=== PATIENT | female | born 1935 | race African-American/Black ===

== ENCOUNTER → 2016-08-18 | Outpatient (CLI) | payer MEDICARE, MEDICAID ==
[~2016-08-18] MED LIST: ALBU2.5V4 INH; ALBU8.5H2 IH; AMLO10TA82 PO; ASP81CT PO; ASPI-266 PO; ASPI-875 PO; Azithromycin PO; BUDE0.5A2 IH; BUDE0.5A5 INH; BUDE6HFA IH; CRANBERRY TABLET PO; CRB200T PO; DCS100C PO; DOXA2TAB PO; DXZS2T PO; DXZS4T PO; FLT05NA16 NSEACH; FLUT1DIS3 IH; FURO40TA4 PO; HYDR1CAP2 PO; INSU100V3 ID; IPRA3AMP11 INH; KCL20TCR PO; LEVO75TA6 PO; LEVO88TA26 PO; LSNP20T PO; LVT.088T PO; Lisinopril PO; METO200T2 PO; METO200T6 PO; MTP100TCR PO; OMEG1CAP51 PO; OMEP-10 PO; PRD20T PO; PRED10TA PO; PRED15SO PO; PRED5TAB PO; Prednisone PO; SMV20T PO; SOLI10TA4 PO; TRAV0.004S OU; TRAZ-144 PO; [UNRECOGNIZED DRUG - CODE] TP
--- NOTE | 2016-08-20 20:36 | Diagnostic Imaging Report ---
Bilateral screening mammogram The current study was also evaluated with a Computer Aided Detection (CAD) system. INDICATION: Screening. No current complaints stated on the questionnaire. COMPARISON: 01/18/2014. FINDINGS: The breasts are composed of scattered fibroglandular densities. Numerous calcifications slightly increased from prior exams are seen in scattered distribution likely dystrophic type with no suspicious calcifications. The technologist reports difficulty in positioning of this patient explaining the lack of pectoralis muscle on the MLO views. Allowing for technique and positional differences, no suspicious change is seen. IMPRESSION: No significant change. ACR BI-RADS Category 2: Benign findings. Result letter will be mailed to the patient. Note: At least 10% of breast cancer is not imaged by mammography. Dictated by: Dictated on workstation # [id number]
== END ==
LOC: RAD 13:16
PROVIDERS: ATTEND Nurse Practitioner Community Health
DX: Z12.31 Encounter for screening mammogram for malignant neoplasm of breast (principal)
CPT/HCPCS: 77067

== ENCOUNTER 2017-07-09 19:21 | Inpatient (IN) | payer MEDICARE, MEDICAID ==
[~2017-07-09] VITALS: Ht 152.4 cm; Wt 74.4 kg
[2017-07-09] MEDS ORDERED: cefTRIAXone INJECTION 1,000 MG in NS (IVPB) 100 ML IV STA (19:30)
[2017-07-09] MEDS ORDERED: LACTATED RINGERS 1,000 ML IV STA (19:30)
[2017-07-09] MEDS ORDERED: LACTATED RINGERS 1,000 ML IV ONE (19:30)
[2017-07-09] MEDS ORDERED: RT-ALBUTEROL/IPRATROPIUM 3 ML (DUONEB) VIAL INH ONE (19:30)
[2017-07-09] MEDS ORDERED: RT-ALBUTEROL/IPRATROPIUM 3 ML (DUONEB) VIAL ONE (19:33)
--- NOTE | 2017-07-09 19:37 | ED General ---
General Stated Complaint: AMS Source of Information: Patient, EMS, Assisted Records Exam Limitations: Physical Impairments History of Present Illness Date Seen by Provider: Jul 09, 2017 Time Seen by Provider: 19:27 Initial Comments Patient presents to the ER by EMS with a chief complaint that she was nonresponsive today and wheezing. EMS reports that they were told by nursing that they tried to give her her prednisone tablet but she was unresponsive and she wouldn't swallow the tablets so they called EMS. Patient was started on azithromycin and prednisone yesterday and she does have a history of COPD/ asthma. She is wheelchair bound and when EMS got there she was in bed. They suctioned a small amount of oral secretions and got a normal looking 12-lead EKG. Allergies and Home Medications Allergies Coded Allergies: Phenothiazines (Verified Allergy, Unknown, 04/14/14) Trifluoperazine HCl (Verified Allergy, Unknown, 04/14/14) tuberculin, purified protein deriva (Verified Allergy, Unknown, 04/14/14) Home Medications Albuterol 8.5 Gm Hfa.aer.ad, 2 PUFF IH Q6H PRN for WHEEZING, (Reported) Albuterol Sulfate 0.83 Mg/Ml Solution, 1 VIAL INH QID PRN for SHORTNESS OF BREATH, (Reported) Albuterol/Ipratropium 3 Ml Nebu, 3 ML INH QID, (Reported) Amlodipine Besylate 10 Mg Tablet, 10 MG PO DAILY, (Reported) Ammonium Lactate 400 Gm Lotion, TP BID, (Reported) APPLY TO SKIN Aspirin 81 Mg Chew, 81 MG PO DAILY, (Reported) Budesonide/Formoterol Fumarate 1 Inhaler Aero, 2 PUFF IH BID, (Reported) Carbamazepine 200 Mg Tablet, 200 MG PO BID, (Reported) Docusate Sodium 100 Mg Capsule, 100 MG PO BID, (Reported) Doxazosin Mesylate 2 Mg Tab, 2 MG PO Q6HR Prescribed by: MILTON FARRELL on 08/15/14 1412 Fluticasone Propionate 16 Gm Coulter, 1 SPRAYS NSEACH BID PRN for ALLERGIES, ( Reported) Furosemide 40 Mg Tablet, 40 MG PO DAILY, (Reported) Insulin Regular, Human 1,000 Units/10 Ml Soln, 0 ID Q6H PRN for follow sliding scale protocol Prescribed by: YFN HEALY on 07/07/15 1519 Levothyroxine Sodium 88 Mcg Tablet, 88 MCG PO HS, (Reported) Bourg-3 Fatty Acids/Fish Oil 1 Each Capsule, 1 EACH PO BID, (Reported) Omeprazole 20 Mg Capsule.dr, 20 MG PO DAILY, (Reported) Simvastatin 20 Mg Tab, 20 MG PO HS, (Reported) Travoprost 2.5 Ml Drops, 1 DROP OU HS, (Reported) [Lisinopril] 20 MG TAB, 20 MG PO DAILY Prescribed by: MILTON FARRELL on 08/15/14 1412 Patient Home Medication List Home Medication List Reviewed: Yes Constitutional: see HPI (patient will open her eyes and look around to verbal will not give any meaningful review of systems) Past Myzgwkh-Nbshao-Otxpnv Hx Patient Social History Alcohol Use: Denies Use Recreational Drug Use: No Smoking Status: Never a Smoker Immunizations Up To Date Tetanus Booster (TDap): Unknown PED Vaccines UTD: No Date of Pneumonia Vaccine: Feb 08, 2012 Date of Influenza Vaccine: Feb 07, 2014 Surgeries Surgeries: Appendectomy, Eye Surgery, Hysterectomy, Orthopedic, Thyroidectomy Respiratory Respiratory Disorders: Chronic Bronchitis, COPD Cardiovascular Cardiac Disorders: Cardiomyopathy, High Cholesterol, Hypertension Neurological Neurological Disorders: Developmental Disorder, Seizure Disorder Reproductive System Hx Reproductive Disorders: 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 Physical Exam-Suspected Sepsis Physical Exam Vital Signs Vital Signs - First Documented 07/09/17 07/09/17 07/09/17 07/10/17 19:40 20:05 23:15 00:00 Temp 96.7 Pulse 80 Resp 24 B/P (MAP) 107/80 (89) Pulse Ox 100 O2 Delivery Simple Mask O2 Flow Rate 6.00 Capillary Refill : General Appearance: Moderate Distress, Obese Eyes: Bilateral Eye Normal Inspection, Bilateral Eye PERRL, Bilateral Eye EOMI HEENT: PERRL/EOMI, TMs Normal, Normal ENT Inspection, Pharynx Normal ( oropharynx dry and free of foreign bodies) Neck: Full Range of Motion, Normal Inspection, Non Tender, Supple Respiratory: Chest Non Tender, Decreased Breath Sounds, Respiratory Distress ( mild to moderate), Wheezing Cardiovascular: Regular Rate, Rhythm, No Edema, No Murmur, Normal Peripheral Pulses Gastrointestinal: Normal Bowel Sounds, Non Tender, Soft Extremity: Normal Capillary Refill, Non Tender, No Calf Tenderness, No Pedal Edema Neurologic/Psychiatric: Alert, Other (Dexter Coma Scale 10.) Skin: normal color, warm/dry Focused Exam Evaluation Lactate Level Laboratory Tests 07/09/17 20:08: Lactic Acid Level 2.68*H 07/09/17 22:10: Lactic Acid Level 4.32*H 07/10/17 03:32: Lactic Acid Level 4.03*H Time of Focused Exam: 22:00 Respiratory: Chest Non Tender, No Accessory Muscle Use, Decreased Breath Sounds , Respiratory Distress (mod), Wheezing Cardiovascular: Regular Rate, Rhythm, No Murmur, Normal Peripheral Pulses Capillary Refill: Less Than 3 Seconds Peripheral Pulses: 2+ Dorsalis Pedis (R), 2+ Left Dors-Pedis (L), 2+ Radial Pulses (R), 2+ Radial Pulses (L) Skin: normal color, warm/dry Lactic Acid Level Laboratory Tests Test 07/10/17 03:32 Lactic Acid Level 4.03 MMOL/L (0.50-2.00) *H Lumen: triple Central Line Procedure: betadine prep (chlorhexidine prep), sterile drapes applied, sterile dressing applied Position: internal jugular (R) Anesthesia: Lidocaine Volume Anesthetic (ccs): 2 Complications: Post Position: sutured, good blood return, position confirmed w/ CXR Progress Patient was positioned in the usual fashion. Cleaned with chlorhexidine prep. Draped in the usual sterile fashion. Sterile gown, mask and hair net, as well as sterile gloves were donned. 2 cc of lidocaine were injected in the left IJ and using ultrasound guidance catheter needle was placed. The needle was guided by ultrasound and watched enter the internal jugular but when the needle was withdrawn from the catheter pulsatile bright red blood flow was seen so the catheter was withdrawn and stops pressure was placed for 10 minutes. Patient was on draped and the right IJ was prepped with chlorhexidine and sterile drapery was placed in the usual fashion. Down gloves mask and headgear placed in the usual fashion. 2 cc of 1% lidocaine without epinephrine were placed over the right IJ and using ultrasound guidance a needle catheter was placed in the right IJ. Slow dark red blood return was obtained. The needle was withdrawn and the guidewire was easily passed. The catheter was removed and using an 11 blade scalpel in neck and the skin was made. A dilator was placed over the guidewire and passed easily. The guidewire was held in place while the dilator was removed and then the triple lumen catheter was placed over the guidewire easily entered the right IJ. The triple lumen was placed about 16 cm. Using the provided hardware the triple lumen was stitched in place to the skin and then a Biopatch was placed in a sterile dressing was placed. Chest x-ray was obtained which showed the tip of the triple lumen catheter to be in the right atria. Cleaning the site with chlorhexidine and draping with sterile drapes the sterile dressing was removed and the stitches were removed using sterile fashion and sterile gloves. Mask and headgear were still present. The triple lumen was withdrawn 2-1/2 cm. The hardware was replaced and stitched in place using 4-0 silk. Biopatch was replaced and a sterile dressing was placed over the triple lumen insertion site. Patient tolerated this procedure well. If repeat chest x-ray was obtained showing the triple lumen in good position in the superior vena cava above the right atria. At this time the procedure was done the patient does not have any hematoma, bleeding or palpable tumor over the left IJ/carotid. Progress/Results/Core Measures Suspected Sepsis SIRS Temperature: Pulse: Respiratory Rate: Laboratory Tests 07/09/17 20:08: White Blood Count 7.2 07/10/17 03:32: White Blood Count 8.9 Blood Pressure / Mean: Laboratory Tests 07/09/17 20:08: Lactic Acid Level 2.68*H 07/09/17 22:10: Lactic Acid Level 4.32*H 07/10/17 03:32: Lactic Acid Level 4.03*H Laboratory Tests 07/09/17 20:08: Creatinine 1.16, INR Comment 1.0, Platelet Count 300, Total Bilirubin 0.2 07/10/17 03:32: Creatinine 0.98, Platelet Count 268, Total Bilirubin 0.2 Results/Orders Lab Results Laboratory Tests Test 07/09/17 19:45 07/09/17 20:08 07/09/17 21:17 07/09/17 22:10 Range/Units Blood Gas Puncture Site RIGHT RADIAL R RAD Blood Gas Patient Temperature 95.2 94.1 Arterial Blood pH 7.17 *L 7.36 L 7.37-7.43 Arterial Blood Partial Pressure CO2 104 *H 62 H 35-45 MMHG Arterial Blood Partial Pressure O2 277 H 58 L 79-93 MMHG Arterial Blood HCO3 38 H 35 H 23-27 MMOL/L Arterial Blood Total CO2 41.2 H 37.4 H 21.0-31.0 MMOL/L Arterial Blood Oxygen Saturation 100 94 94-100 % Arterial Blood Base Excess 9.0 H 9.1 H -2.5-2.5 MMOL/L Juan Test POSITIVE YES-POS Blood Gas Ventilator Setting NO NO Blood Gas Inspired Oxygen 6 L 30% BIPAP White Blood Count 7.2 4.3-11.0 10^3/uL Red Blood Count 3.46 L 4.35-5.85 10^6/uL Hemoglobin 10.6 L 11.5-16.0 G/DL Hematocrit 34 L 35-52 % Mean Corpuscular Volume 99 80-99 FL Mean Corpuscular Hemoglobin 31 25-34 PG Mean Corpuscular Hemoglobin Concent 31 L 32-36 G/DL Red Cell Distribution Width 16.1 H 10.0-14.5 % Platelet Count 300 130-400 10^3/uL Mean Platelet Volume 9.3 7.4-10.4 FL Neutrophils (%) (Auto) 61 42-75 % Lymphocytes (%) (Auto) 27 12-44 % Monocytes (%) (Auto) 12 0-12 % Eosinophils (%) (Auto) 0 0-10 % Basophils (%) (Auto) 0 0-10 % Neutrophils # (Auto) 4.4 1.8-7.8 X 10^3 Lymphocytes # (Auto) 1.9 1.0-4.0 X 10^3 Monocytes # (Auto) 0.9 0.0-1.0 X 10^3 Eosinophils # (Auto) 0.0 0.0-0.3 10^3/uL Basophils # (Auto) 0.0 0.0-0.1 10^3/uL Prothrombin Time 13.1 12.2-14.7 SEC INR Comment 1.0 0.8-1.4 Activated Partial Thromboplast Time 22 L 24-35 SEC Sodium Level 145 135-145 MMOL/L Potassium Level 6.2 H 6.1 H 3.6-5.0 MMOL/L Chloride Level 102 98-107 MMOL/L Carbon Dioxide Level 32 21-32 MMOL/L Anion Gap 11 5-14 MMOL/L Blood Urea Nitrogen 29 H 7-18 MG/DL Creatinine 1.16 0.60-1.30 MG/DL Estimat Glomerular Filtration Rate 54 BUN/Creatinine Ratio 25 Glucose Level 122 H 70-105 MG/DL Lactic Acid Level 2.68 *H 4.32 *H 0.50-2.00 MMOL/L Calcium Level 9.0 8.5-10.1 MG/DL Phosphorus Level 5.0 H 2.3-4.7 MG/DL Magnesium Level 2.7 H 1.8-2.4 MG/DL Total Bilirubin 0.2 0.1-1.0 MG/DL Aspartate Amino Transf (AST/SGOT) 12 5-34 U/L Alanine Aminotransferase (ALT/SGPT) 17 0-55 U/L Alkaline Phosphatase 63 40-136 U/L Troponin I < 0.30 <0.30 NG/ML C-Reactive Protein High Sensitivity 0.55 H 0.00-0.50 MG/DL B-Type Natriuretic Peptide 249.7 H <100.0 PG/ML Total Protein 7.4 6.4-8.2 GM/DL Albumin 3.7 3.2-4.5 GM/DL Test 07/10/17 00:13 07/10/17 03:32 07/10/17 04:07 Range/Units Urine Color YELLOW Urine Clarity CLEAR Urine pH 5 5-9 Urine Specific [place] 1.015 L 1.016-1.022 Urine Protein 2+ H NEGATIVE Urine Glucose (UA) NEGATIVE NEGATIVE Urine Ketones NEGATIVE NEGATIVE Urine Nitrite NEGATIVE NEGATIVE Urine Bilirubin NEGATIVE NEGATIVE Urine Urobilinogen NORMAL NORMAL MG/DL Urine Leukocyte Esterase NEGATIVE NEGATIVE Urine RBC (Auto) NEGATIVE NEGATIVE Urine RBC NONE /HPF Urine WBC NONE /HPF Urine Squamous Epithelial Cells NONE /HPF Urine Crystals PRESENT H /LPF Urine Amorphous Sediment FEW ANDREA URATES H /LPF Urine Bacteria TRACE /HPF Urine Casts PRESENT /LPF Urine Hyaline Casts 2-5 H /LPF Urine Mucus MODERATE H /LPF Urine Culture Indicated NO White Blood Count 8.9 4.3-11.0 10^3/uL Red Blood Count 3.22 L 4.35-5.85 10^6/uL Hemoglobin 9.8 L 11.5-16.0 G/DL Hematocrit 32 L 35-52 % Mean Corpuscular Volume 99 80-99 FL Mean Corpuscular Hemoglobin 30 25-34 PG Mean Corpuscular Hemoglobin Concent 31 L 32-36 G/DL Red Cell Distribution Width 15.9 H 10.0-14.5 % Platelet Count 268 130-400 10^3/uL Mean Platelet Volume 9.4 7.4-10.4 FL Neutrophils (%) (Auto) 83 H 42-75 % Lymphocytes (%) (Auto) 12 12-44 % Monocytes (%) (Auto) 5 0-12 % Eosinophils (%) (Auto) 0 0-10 % Basophils (%) (Auto) 0 0-10 % Neutrophils # (Auto) 7.4 1.8-7.8 X 10^3 Lymphocytes # (Auto) 1.1 1.0-4.0 X 10^3 Monocytes # (Auto) 0.4 0.0-1.0 X 10^3 Eosinophils # (Auto) 0.0 0.0-0.3 10^3/uL Basophils # (Auto) 0.0 0.0-0.1 10^3/uL Sodium Level 142 135-145 MMOL/L Potassium Level 6.3 H 3.6-5.0 MMOL/L Chloride Level 103 98-107 MMOL/L Carbon Dioxide Level 32 21-32 MMOL/L Anion Gap 7 5-14 MMOL/L Blood Urea Nitrogen 27 H 7-18 MG/DL Creatinine 0.98 0.60-1.30 MG/DL Estimat Glomerular Filtration Rate > 60 BUN/Creatinine Ratio 28 Glucose Level 147 H 70-105 MG/DL Lactic Acid Level 4.03 *H 0.50-2.00 MMOL/L Calcium Level 8.5 8.5-10.1 MG/DL Phosphorus Level 3.8 2.3-4.7 MG/DL Magnesium Level 2.5 H 1.8-2.4 MG/DL Total Bilirubin 0.2 0.1-1.0 MG/DL Aspartate Amino Transf (AST/SGOT) 54 H 5-34 U/L Alanine Aminotransferase (ALT/SGPT) 58 H 0-55 U/L Alkaline Phosphatase 57 40-136 U/L Troponin I < 0.30 <0.30 NG/ML Total Protein 6.8 6.4-8.2 GM/DL Albumin 3.4 3.2-4.5 GM/DL Group A Streptococcus Screen NEGATIVE NEGATIVE Blood Gas Puncture Site R RAD Blood Gas Patient Temperature 96.1 Arterial Blood pH 7.28 *L 7.37-7.43 Arterial Blood Partial Pressure CO2 66 H 35-45 MMHG Arterial Blood Partial Pressure O2 123 H 79-93 MMHG Arterial Blood HCO3 31 H 23-27 MMOL/L Arterial Blood Total CO2 32.9 H 21.0-31.0 MMOL/L Arterial Blood Oxygen Saturation 99 94-100 % Arterial Blood Base Excess 4.1 H -2.5-2.5 MMOL/L Juan Test YES-POS Blood Gas Ventilator Setting NO Blood Gas Inspired Oxygen 35% Micro Results Microbiology 07/10/17 Influenza Types A,B Antigen (TIKI) - Final, Complete My Orders Orders - SHANWEE SANTOS Cbc With Automated Diff (07/09/17:30) Comprehensive Metabolic Panel (07/09/17:30) Lactic Acid Analyzer (07/09/17:30) Blood Culture (07/09/17:30) Sputum Culture (07/09/17:30) Protime With Inr (07/09/17:30) Partial Thromboplastin Time (07/09/17:30) Chest 1 View, Ap/Pa Only (07/09/17:30) O2 (07/09/17:30) Saline Lock/Iv-Start (07/09/17:30) Saline Lock/Iv-Start (07/09/17:30) Ekg Tracing (07/09/17:30) Troponin I (07/09/17:30) Vital Signs Adult Sepsis Patie Q1H (07/09/17 19:30) Ceftriaxone Injection (Rocephin Injectio (07/09/17 19:30) Remove Rings In Anticipation O (07/09/17:30) Influenza A And B Antigens (07/09/17:30) Saline Lock/Iv-Start (07/09/17:30) Lactated Ringers (Lr 1000 Ml Iv Solution (07/09/17 19:30) Arterial Blood Gas (07/09/17 19:30) BNP (07/09/17 19:30) Hs C Reactive Protein (07/09/17:30) Magnesium (07/09/17 19:30) Rapid Strep A Screen (07/09/17 19:30) Phosphorus (07/09/17 19:30) Albuterol/Ipra Inhalation Soln (Duoneb I (07/09/17 19:30) Lactated Ringers (Lr 1000 Ml Iv Solution (07/09/17 19:30) Svn Sm Volume Nebulizer Rt-Rfs (07/09/17 19:30) Cefepime Injection (Maxipime Injection) (07/09/17 19:45) Albuterol/Ipra Inhalation Soln (Duoneb I (07/09/17 19:33) Chest 1 View, Ap/Pa Only (07/09/17 20:58) Chest 1 View, Ap/Pa Only (07/09/17 21:22) Arterial Blood Gas (07/09/17 21:33) Potassium (07/09/17 22:03) Albuterol Pre-Mix Nebs (Rt) (Proventil (07/09/17 22:03) Svn Sm Volume Nebulizer Rt-Rfs (07/09/17 22:03) Albuterol Pre-Mix Nebs (Rt) (Proventil (07/09/17 22:02) Methylprednisolone Sod Succ (Solu-Medrol (07/09/17 22:15) Ceftriaxone Injection (Rocephin Injectio (07/09/17 22:20) Ns (Ivpb) (Sodium Chloride 0.9% Ivpb Bag (07/09/17 22:20) Medications Given in ED Current Medications Medications Dose Ordered Sig/Naomi Route Start Time Stop Time Status Last Admin Dose Admin Albuterol/ Ipratropium 3 ml ONCE ONCE INH 07/09/17 19:30 07/09/17 19:35 DC 07/09/17 19:37 3 ML Cefepime HCl 2000 mg/Sodium Chloride 100 ml @ 200 mls/hr ONCE ONCE IV 07/09/17 19:45 07/09/17 20:14 DC 07/09/17 21:40 200 MLS/HR Lactated Ringer's 1,000 ml @ 0 mls/hr Q0M ONCE IV 07/09/17 19:30 07/09/17 19:35 DC 07/09/17 21:39 1,000 MLS/HR Methylprednisolone Sodium Succinate 125 mg ONCE ONCE IVP 07/09/17 22:15 07/09/17 22:16 DC 07/09/17 22:20 125 MG Vital Signs/I&O Vital Sign - Last 12Hours 07/09/17 07/09/17 07/09/17 07/09/17 19:40 20:05 22:10 23:15 Pulse 80 83 81 Resp 24 17 17 B/P (MAP) 107/80 (89) Pulse Ox 100 100 97 100 O2 Delivery Simple Mask NIV Bilevel O2 Flow Rate 6.00 30.00 50.00 50.00 07/09/17 07/09/17 07/10/17 07/10/17 23:30 23:45 00:00 00:40 Temp 96.7 Pulse 73 74 80 76 Resp 12 17 20 17 B/P (MAP) 130/66 (87) 136/60 (85) 139/63 (88) Pulse Ox 100 100 100 100 O2 Delivery NIV Bilevel NIV Bilevel NIV Bilevel O2 Flow Rate 50.00 50.00 50.00 50.00 07/10/17 01:00 Pulse 80 Capillary Refill : Progress Note : Time: 03:20 Progress Note Patient and respirator distress and decreased level of consciousness suspect sepsis likely from pneumonia. We will breathing treatments and we had to address her high potassium with 3 more breathing treatments [id number]. Recheck a potassium. Also was here she was no longer spontaneously alert but would arouse to verbal or noxious stimuli. We are unable to get adequate peripheral IV access so central line was initiated. She was given a large fluid bolus and cefepime IV antibiotics. As she started to perk up and talk. Because of her breast or status and ABG was obtained showing she was acidotic and not ventilating very well CO2 100. Her oxygenation is okay. PH was 7.1. Put her on BiPAP immediately after obtaining the ABG and recheck the ABG after the central line was placed and her CO2 had dropped down to 62 and her pH had improved back to 7.36. As she was becoming more alert and certainly responsive it was determined she would not need intubation just better ventilation. Critical care time approximately one hour. Diagnostic Imaging Diagonstic Imaging: Xray Plain Films/CT/US/NM/MRI: chest Comments VIA [facility]. [place], [place] NAME: [facility] REC#: [id number] PT STATUS: REG ER : 1935 PHYSICIAN: SHAWNEE SANTOS MD ADMIT DATE: 07/09/17/ER Draft Date of Exam:07/09/17 CHEST 1 VIEW, AP/PA ONLY Clinical indication: Patient with shortness of breath. Exam: Portable chest x-ray upright view. Comparison: Portable chest x-ray upright view dated 07/07/2015. Findings: There is cardiomegaly and pulmonary vasculature again seen. There is progression of airspace opacity involving the right lung which may represent atelectasis versus infiltrate. There is stable atelectasis involving the left lung with elevation of the left hemidiaphragm. There is no gross pleural effusion seen. There is no pneumothorax. The remainder of this exam shows no significant interval change compared to the prior study of comparison. Impression: 1: There is cardiomegaly with pulmonary vascular congestion which can be seen with congestive heart failure. 2: There is increased mild airspace opacification and decreased lung volume of the right lung which may represent atelectasis versus infiltrate. 3: There is continued left lung base atelectasis and/or scarring with elevation of the left hemidiaphragm. Dictated on workstation # [id number] Dict: 07/09/172002 Trans: 07/09/172012 PJE [id number] Interpreted by: RUPESH LOTT MD Electronically signed by: Reviewed: Reviewed by Ga Diagonstic Imaging: Xray Plain Films/CT/US/NM/MRI: chest Comments Central line on the right side is either in the base of the atria or the inferior vena cava. VIA [place], [place] NAME: [facility] REC#: [id number] PT STATUS: REG ER : 1935 PHYSICIAN: SHAWNEE SANTOS MD ADMIT DATE: 07/09/17/ER Draft Date of Exam:07/09/17 CHEST 1 VIEW, AP/PA ONLY Clinical indication: Patient with central line placement. Exam: Portable chest x-ray upright view. Comparison: Portable chest x-ray upright view dated 07/09/2017 at 0757 hrs. Findings and impression: 1: There is interval placement of a right IJ central line with the tip in the mid atrial region. This catheter should be withdrawn at least 5 cm for it to be in the distal superior vena cava region. 2: There is slight improved aeration of both lungs. 3: The remainder of this exam shows no significant interval change compared to the prior study of comparison. Dictated on workstation # [id number] Dict: 07/09/17 213 Trans: 07/09/17 214 [facility] [id number] Interpreted by: RUPESH LOTT MD Electronically signed by: Reviewed: Reviewed by Me Diagonstic Imaging: Xray Plain Films/CT/US/NM/MRI: chest Comments Tip of the central line is in the superior vena cava/top of the atria on the right side. Reviewed: Reviewed by Me Critical Care Note Critical Care Start Time: 21:10 Stop Time: 22:10 Total Time (minutes) 60 min Progress See progress note. Departure Impression Impression: Primary Impression: Acute exacerbation of chronic obstructive airways disease Additional Impressions: Acute on chronic respiratory failure Qualified Codes: J96.21 - Acute and chronic respiratory failure with hypoxia; J96.22 - Acute and chronic respiratory failure with hypercapnia Hypercapnia Hypoxemia Hyperkalemia Severe sepsis Encephalopathy acute Disposition: 09 ADMITTED INPATIENT Condition: Critical Admissions Decision to Admit Reason: Admit from ER (General) Decision to Admit/Date: Jul 09, 2017 Time/Decision to Admit Time: 22:18 Departure-Patient Inst. Referrals: TARYN ANTONY MD (PCP) Primary Care Physician PHUC AGUIRRE (Family) Primary Care Physician Copy Copies To 1: ELLIS CANAS TITUS J Jul 09, 2017 19:37
[2017-07-09] MEDS ORDERED: CEFEPIME INJECTION 2,000 MG in NS (IVPB) 100 ML IV ONE (19:45)
[2017-07-09 19:56] LABS: ABG OXYGEN SATURATION 100 % (94-100); ABG PO2 277 MMHG (79-93); ABG TCO2 41.2 MMOL/L (21.0-31.0)
--- OUTSIDE RECORDS SUMMARY | 2017-07-09 19:57 | XMS REPORT ---
Author Author PHUC AGUIRRE [facility] Address [address] [place] [address] Care Team Providers Care Router Setter Name Role Phone PHUC AGUIRRE Unavailable PROBLEMS Type Condition ICD9-CM Code QLQ32-HX Code Onset Dates Condition Status SNOMED Code Problem Muscle weakness (generalized) M62.81 Active 65768314 Problem Abnormality of gait R26.9 Active 15643763 Problem Unspecified intellectual disabilities F79 Active 06522353 Problem Shortness of breath R06.02 Active 360637070 Problem Chronic obstructive pulmonary disease, unspecified J44.9 Active 06984907 Problem Hypercarbia R06.89 Active 90145023 Problem Acquired hypothyroidism E03.9 Active 290575552 Problem Essential hypertension I10 Active 23917393 Problem Diabetes E11.9 Active 04718961 Problem Seizures R56.9 Active 63444728 ALLERGIES No Information SOCIAL HISTORY Never Assessed PLAN OF CARE Activity Details Follow Up prn Reason: VITAL SIGNS MEDICATIONS Unknown Medications RESULTS No Results PROCEDURES Procedure Date Ordered Result Body Site Stable Visit (10 minutes) July 09, 2016 IMMUNIZATIONS No Known Immunizations MEDICAL (GENERAL) HISTORY Type Description Date Medical History hypertension(401.9) Medical History congestive heart failure(428.0) Medical History mental retardation(318) Medical History epilepsy(345)-and recurrent seizures Medical History constipation(564.0) Medical History allergic rhinitis(477) Medical History Hypothyroidism(244.9) Medical History hyperlipidemia(272.4) Medical History esophageal reflux(530.81) Medical History glaucoma(365) Medical History chronic airway obstruction(496) Medical History muscle weakness(728.87) Medical History changes in skin texture(782.8)
[2017-07-09 19:58] LABS: ABG PCO2 104 MMHG (35-45); ABG PH 7.17 (7.37-7.43); ALLENS TEST POSITIVE; INSPIRED O2 6 L
--- OUTSIDE RECORDS SUMMARY | 2017-07-09 19:58 | XMS REPORT ---
Author Author PHUC AGUIRRE [facility] Address [address] [place] [address] Care Team Providers Care Oil Filters Inspector Name Role Phone PHUC AGUIRRE Unavailable PROBLEMS Type Condition ICD9-CM Code [id number] Code Onset Dates Condition Status SNOMED Code Problem Seizures R56.9 Active 03720788 Problem Unspecified intellectual disabilities F79 Active 27443953 Problem Acquired hypothyroidism E03.9 Active 287779798 Assessment Hypercarbia R06.89 Dec, Active 23508616 Problem Essential hypertension I10 Active 17558984 Problem Diabetes E11.9 Active 93757343 Problem Hypercarbia R06.89 Active 88202426 Problem Chronic obstructive pulmonary disease, unspecified COPD type J44.9 Active 72658495 Problem Muscle weakness (generalized) M62.81 Active 61193037 Problem Abnormality of gait R26.9 Active 12147404 Problem Shortness of breath R06.02 Active 024367769 ALLERGIES Unknown Allergies SOCIAL HISTORY No smoking Hx information available PLAN OF CARE VITAL SIGNS MEDICATIONS Unknown Medications RESULTS No Results PROCEDURES Procedure Date Ordered Related Diagnosis Body Site Stable Visit (10 minutes) Dec 18, 2015 IMMUNIZATIONS No Known Immunizations
--- OUTSIDE RECORDS SUMMARY | 2017-07-09 19:58 | XMS REPORT ---
Author Author PHUC AGUIRRE Organization [employer] Address Unknown Phone Unavailable Care Team Providers Care Coffin Maker Name Role Phone PHUC AGUIRRE CP Unavailable Allergies No Known Allergies Problems Problem Type Condition Code Onset Dates Condition Status Problem Essential hypertension I10 Active Problem Acquired hypothyroidism E03.9 Active Problem Seizures R56.9 Active Assessment Diabetes E11.9 Active Problem Hypercarbia R06.89 Active Problem Abnormality of gait R26.9 Active Problem Diabetes E11.9 Active Problem Muscle weakness (generalized) M62.81 Active Problem Unspecified intellectual disabilities F79 Active Problem Shortness of breath R06.02 Active Problem Chronic obstructive pulmonary disease, unspecified COPD type J44.9 Active Medications No Known Medications Results No Known Results Summary Purpose eClinicalWorks Submission
--- OUTSIDE RECORDS SUMMARY | 2017-07-09 19:58 | XMS REPORT ---
Author Author PHUC AGUIRRE [facility] Address [address] [place] [address] Care Team Providers Care Armament Installer Name Role Phone PHUC AGUIRRE Unavailable PROBLEMS Type Condition ICD9-CM Code [id number] Code Onset Dates Condition Status SNOMED Code Problem Muscle weakness (generalized) M62.81 Active 49968921 Problem Abnormality of gait R26.9 Active 14248961 Problem Unspecified intellectual disabilities F79 Active 18677256 Problem Shortness of breath R06.02 Active 751154237 Problem Chronic obstructive pulmonary disease, unspecified J44.9 Active 40247460 Problem Hypercarbia R06.89 Active 99679981 Problem Acquired hypothyroidism E03.9 Active 423261540 Problem Essential hypertension I10 Active 20039237 Problem Diabetes E11.9 Active 42507754 Problem Seizures R56.9 Active 95750392 ALLERGIES No Information SOCIAL HISTORY Never Assessed PLAN OF CARE VITAL SIGNS MEDICATIONS Medication Instructions Dosage Frequency Start Date End Date Duration Status Lactaid 3000 UNIT Orally Once a day 1 tablet 24h Jul, Active RESULTS No Results PROCEDURES No Known procedures IMMUNIZATIONS No Known Immunizations MEDICAL (GENERAL) HISTORY [...]
--- OUTSIDE RECORDS SUMMARY | 2017-07-09 19:58 | XMS REPORT ---
Author Author PHUC AGUIRRE [facility] Address [address] [place] [address] Care Team Providers Care Ticket Taker Name Role Phone PHUC AGUIRRE Unavailable PROBLEMS Type Condition ICD9-CM Code [id number] Code Onset Dates Condition Status SNOMED Code Problem Muscle weakness (generalized) M62.81 Active 28460435 Problem Abnormality of gait R26.9 Active 57738709 Problem Unspecified intellectual disabilities F79 Active 02660681 Problem Shortness of breath R06.02 Active 676408083 Problem Chronic obstructive pulmonary disease, unspecified J44.9 Active 79693757 Problem Hypercarbia R06.89 Active 99515765 Problem Acquired hypothyroidism E03.9 Active 793781034 Problem Essential hypertension I10 Active 45117743 Problem Diabetes E11.9 Active 59269539 Problem Seizures R56.9 Active 70736452 ALLERGIES No Information SOCIAL HISTORY Never Assessed PLAN OF CARE VITAL SIGNS MEDICATIONS Medication Instructions Dosage Frequency Start Date End Date Duration Status Pulmicort 0.5 MG/2ML Inhalation twice a day 2 ml 12h September, 30 days Active Ipratropium-Albuterol 0.5-2.5 (3) MG/3ML Inhalation every 8 hrs 3 ml as needed 8h September, 30 days Active RESULTS No Results PROCEDURES No Known [...]
--- OUTSIDE RECORDS SUMMARY | 2017-07-09 19:58 | XMS REPORT ---
Author Author PHUC AGUIRRE [facility] eClinicalWorks Address Unknown Phone Unavailable Care Team Providers Care Audio Tape Librarian Name Role Phone PHUC AGUIRRE CP Unavailable Allergies No Known Allergies Problems Problem Type Condition Code Onset Dates Condition Status Problem Essential hypertension I10 Active Problem Acquired hypothyroidism E03.9 Active Problem Seizures R56.9 Active Problem Hypercarbia R06.89 Active Problem Abnormality of gait R26.9 Active Problem Diabetes E11.9 Active Problem Muscle weakness (generalized) M62.81 Active Problem Unspecified intellectual disabilities F79 Active Problem Shortness of breath R06.02 Active Problem Chronic obstructive pulmonary disease, unspecified COPD type J44.9 Active Assessment Muscle weakness (generalized) M62.81 Active Assessment Diabetes E11.9 Active Assessment Unspecified intellectual disabilities F79 Active Medications No Known Medications Procedures Procedure Coding System Code Date Stable Visit (10 minutes) CPT-4 86972 Feb 19, 2016 Results No Known Results Summary Purpose eClinicalWorks Submission
[2017-07-09 19:59] LABS: PATIENT TEMP 95.2; VENTILATOR NO
--- OUTSIDE RECORDS SUMMARY | 2017-07-09 19:59 | XMS REPORT ---
Author Author PHUC AGUIRRE [facility] [employer] Address Unknown Phone Unavailable Care Team Providers Care Telephone Appointment Clerk Name Role Phone PHUC AGUIRRE CP Unavailable [...] disease, unspecified COPD type J44.9 Active Medications Medication Code System Code Instructions Start Date End Date Status Dosage Acetaminophen [facility] [address]-22 325 MG Orally every 4 hrs 2 tablet as needed Albuterol Sulfate [facility] [address]-48 2.5 mg /3 mL (0.083 %) August 02, 2014 1 Each by Inhalation route 4 times per day for cough and wheeze PRN for wheezing or cough Docusate Sodium [facility] [address]-92 50 MG/5ML Orally 2 times a day 10 ml as needed Metformin HCl [facility] [address]-54 500 MG Orally Twice a day 2 tablet with meals ProAir HFA [facility] [address]-35 108 (90 Base) MCG/ACT Inhalation every6 hours 2 puffs as needed Flonase Allergy Relief [facility] [address]-05 50 MCG/ACT Nasally 2 times a day 1 spray in each nostril Aspirin [facility] [address]-84 81 mg Jun 04, 2014 1 tablet by Oral route 1 time per day Carbamazepine [facility] [address]-37 100 MG/5ML Orally 2 times a day 10 ml Travoprost [facility] [address]-06 0.004 % Ophthalmic Once a day 1 drop into affected eye in the evening Simvastatin [facility] [address]-82 20 mg August 07, 2011 take 1 tablet ( 20 mg) by oral route once daily in the evening Lisinopril [facility] [address]-08 20 MG Orally Once a day 1 tablet Symbicort [facility] [address]-65 160-4.5 MCG/ACT Inhalation Twice a day 2 puffs Lantus [facility] [address]-24 100 UNIT/ML Subcutaneous in the PM and 25 u in the AM Inject 10 units Levothyroxine Sodium [facility] [address]-66 88 MCG Orally Once a day 1 tablet Amlodipine Besylate [facility] [address]-83 10 MG Orally Once a day 1 tablet Doxazosin Mesylate [facility] [address]-51 2 MG Orally 4 times a day 1 tablet Ranitidine HCl [facility] [address]-70 15 MG/ML Orally Twice a day 10 ml Procedures Procedure Coding System Code Date Stable Visit (10 minutes) CPT-4 68549 September 11, 2015 Results No Known Results Summary Purpose eClinicalWorks Submission
--- OUTSIDE RECORDS SUMMARY | 2017-07-09 19:59 | XMS REPORT ---
Author Author PHUC AGUIRRE [facility] eClinicalWorks Address Unknown Phone Unavailable Care Team Providers Care Drain Tile Press Operator Name Role Phone PHUC AGUIRRE CP Unavailable [...] Instructions Start Date End Date Status Dosage Metformin HCl [facility] [address]-29 500 MG Orally Twice a day 2 tablet with meals Travoprost [facility] [address]-10 0.004 % Ophthalmic Once a day 1 drop into affected eye in the evening Simvastatin [facility] [address]-98 20 mg August 07, 2011 take 1 tablet ( 20 mg) by oral route once daily in the evening Docusate Sodium [facility] [address]-29 50 MG/5ML Orally 2 times a day 10 ml as needed Aspirin [facility] [address]-21 81 mg Jun 04, 2014 1 tablet by Oral route 1 time per day Acetaminophen [facility] [address]-83 325 MG Orally every 4 hrs 2 tablet as needed Ranitidine HCl [facility] [address]-22 15 MG/ML Orally Twice a day 10 ml Tussin [facility] [address]59 100 MG/5ML Orally every 4 hrs 5 ml as needed Flonase Allergy Relief [facility] [address]-00 50 MCG/ACT Nasally 2 times a day 1 spray in each nostril Doxazosin Mesylate [facility] [address]-25 2 MG Orally 4 times a day 1 tablet Amlodipine Besylate [facility] [address]-93 10 MG Orally Once a day 1 tablet Symbicort [facility] [address]-87 160-4.5 MCG/ACT Inhalation Twice a day 2 puffs ProAir HFA [facility] [address]-19 108 (90 Base) MCG/ACT Inhalation every6 hours 2 puffs as needed Novolin R [facility] [address]-57 100 UNIT/ML Injection 3 times a day August 08, 2015 10 units before meals Lisinopril [facility] [address]-80 20 MG Orally Once a day 1 tablet Albuterol Sulfate [facility] [address]-15 2.5 mg /3 mL (0.083 %) August 02, 2014 1 Each by Inhalation route 4 times per day for cough and wheeze PRN for wheezing or cough Carbamazepine [facility] [address]-60 100 MG/5ML Orally 2 times a day 10 ml Lantus [facility] [address]-37 100 UNIT/ML Subcutaneous 2 times a day Inject 25 units Levothyroxine Sodium [facility] [address]-15 88 MCG Orally Once a day 1 tablet Results No Known Results Summary Purpose eClinicalWorks Submission
--- OUTSIDE RECORDS SUMMARY | 2017-07-09 19:59 | XMS REPORT ---
Author Author PHUC AGUIRRE [facility] eClinicalWorks Address Unknown Phone Unavailable Care Team Providers Care Senior Oracle Dba Name Role Phone PHUC AGUIRRE CP Unavailable [...] Instructions Start Date End Date Status Dosage Amlodipine Besylate [facility] 27180920324 10 TAKE ONE TABLET BY MOUTH DAILY Zocor [facility] 11238544611 20 TAKE ONE TABLET BY MOUTH EVERY NIGHT AT BEDTIME Doxazosin Mesylate [facility] [address]-54 2 MG Orally 4 times a day 1 tablet Flonase Allergy Relief [facility] [address]-35 50 MCG/ACT Nasally 2 times a day 1 spray in each nostril ProAir HFA [facility] [address]-48 108 (90 Base) MCG/ACT Inhalation every6 hours 2 puffs as needed Metformin HCl [facility] [address]-01 500 MG Orally Twice a day 2 tablet with meals Flonase [facility] 57534588381 [address] ONE SPRAY IN EACH NOSTRIL TWICE DAILY Albuterol Sulfate [facility] [address]-61 2.5 mg /3 mL (0.083 %) every 6 hours as needed August 02, 2014 1 Each by Inhalation route for cough and wheeze PRN for wheezing or cough Aspirin [facility] [address]-85 81 mg Jun 04, 2014 1 tablet by Oral route 1 time per day Levothyroxine Sodium [facility] [address]-40 88 MCG Orally Once a day 1 tablet Travatan Z [facility] 48589475630 0.004 INSTILL ONE DROP IN BOTH EYES AT BEDTIME Ranitidine HCl [facility] [address]-58 15 MG/ML Orally Twice a day 10 ml Tussin [facility] 52789-62720 100 MG/5ML Orally every 4 hrs 5 ml as needed Lisinopril [facility] 44920940517 20 TAKE ONE TABLET BY MOUTH DAILY Carbamazepine [facility] [address]-46 100 MG/5ML Orally 2 times a day 10 ml Lantus [facility] [address]-83 100 UNIT/ML Subcutaneous Once a day Inject 20 units in the morning Symbicort [facility] 44860175039 160-4.5 INHALE TWO PUFFS BY MOUTH TWICE A DAY MiraLax [facility] [address]-24 N/A Orally Once a day November 26, 2015 17gm in 4-8 oz of liquid Singulair [facility] [address]-59 10 MG Orally Once a day 1 tablet in the evening Acetaminophen [facility] [address]-23 325 MG Orally every 4 hrs 2 tablet as needed Symbicort [facility] [address]-02 160-4.5 MCG/ACT Inhalation Twice a day 2 puffs Travoprost [facility] [address]-65 0.004 % Ophthalmic Once a day 1 drop into affected eye in the evening Results No Known Results Summary Purpose eClinicalWorks Submission
--- OUTSIDE RECORDS SUMMARY | 2017-07-09 19:59 | XMS REPORT ---
Author Author PHUC AGUIRRE [facility] Address [address] [place] [address] Care Team Providers Care Fabrication Manager Name Role Phone PHUC AGUIRRE Unavailable PROBLEMS Type Condition ICD9-CM Code [id number] Code Onset Dates Condition Status SNOMED Code Problem Muscle weakness (generalized) M62.81 Active 54065429 Problem Abnormality of gait R26.9 Active 34228312 Problem Unspecified intellectual disabilities F79 Active 47546891 Problem Shortness of breath R06.02 Active 586481923 Problem Chronic obstructive pulmonary disease, unspecified J44.9 Active 79622686 Problem Hypercarbia R06.89 Active 84523513 Problem Acquired hypothyroidism E03.9 Active 137870708 Problem Essential hypertension I10 Active 06599713 Problem Diabetes E11.9 Active 93093940 Problem Seizures R56.9 Active 42339690 ALLERGIES No Information SOCIAL HISTORY Never Assessed PLAN OF CARE VITAL SIGNS MEDICATIONS Medication Instructions Dosage Frequency Start Date End Date Duration Status Pulmicort 0.5 MG/2ML Inhalation twice a day 2 ml 12h September, Active Ipratropium-Albuterol 0.5-2.5 (3) MG/3ML Inhalation every 8 hrs 3 ml as needed 8h September, Active RESULTS No Results PROCEDURES No Known [...]
--- OUTSIDE RECORDS SUMMARY | 2017-07-09 20:00 | XMS REPORT ---
Author Author PHUC AGUIRRE Organization eClinicalWorks Address Unknown Phone Unavailable Care Team Providers Care Offal Baler Name Role Phone PHUC AGUIRRE CP Unavailable Allergies No Known Allergies Problems Problem Type Condition ICD-9 Code Onset Dates Condition Status Problem Acute bronchitis 466.0 Active Problem Other threatened labor, unspecified as to episode of care 644.10 Active Problem Chronic airway obstruction, not elsewhere classified 496 Active Problem Abnormality of gait 781.2 Active Problem Wheezing 786.07 Active Problem Congestive heart failure, unspecified 428.0 Active Problem Shortness of breath 786.05 Active Problem Major depressive disorder, single episode, 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 Problem Unspecified breast screening V76.10 Active Problem Allergic rhinitis, cause unspecified 477.9 Active Assessment Chronic airway obstruction, not elsewhere classified 496 Active Problem Muscle weakness (generalized) 728.87 Active Problem Other alteration of consciousness 780.09 Active Problem Acute upper respiratory infections of unspecified site 465.9 Active Problem Unspecified cardiac dysrhythmia 427.9 Active Problem Other specified cardiac dysrhythmias 427.89 Active Problem Asthma, unspecified, unspecified status 493.90 Active Medications No Known Medications Procedures Procedure Coding System Code Date Office Visit, Est Pt., Level 3 CPT-4 64217 Jan 09, 2015 [facility] VISIT ESTABLISHED PATIENT CPT-4 G0467 Jan 09, 2015 Results No Known Results Summary Purpose eClinicalWorks Submission
--- OUTSIDE RECORDS SUMMARY | 2017-07-09 20:00 | XMS REPORT ---
Author Author PHUC AGUIRRE [facility] eClinicalWorks Address Unknown Phone Unavailable Care Team Providers Care Varnish Supervisor Name Role Phone PHUC AGUIRRE CP Unavailable [...] Instructions Start Date End Date Status Dosage Lisinopril [facility] 41956903191 20 TAKE ONE TABLET BY MOUTH DAILY Amlodipine Besylate [facility] 70859569912 10 TAKE ONE TABLET BY MOUTH DAILY Zocor [facility] 42348575027 20 TAKE ONE TABLET BY MOUTH EVERY NIGHT AT BEDTIME Doxazosin Mesylate [facility] [address]-62 2 MG Orally 4 times a day 1 tablet Carbamazepine [facility] [address]-93 100 MG/5ML Orally 2 times a day 10 ml Symbicort [facility] [address]-23 160-4.5 MCG/ACT Inhalation Twice a day 2 puffs Metformin HCl [facility] [address]-92 500 MG Orally Twice a day 2 tablet with meals Docusate Sodium [facility] [address]-13 50 MG/5ML Orally twice a day 10 ml as needed Aspirin [facility] [address]-21 81 mg Jun 04, 2014 1 tablet by Oral route 1 time per day Tussin [facility] [address]95[address]-86777 100 MG/5ML Orally every 4 hrs 5 ml as needed Travoprost [facility] [address]-05 0.004 % Ophthalmic Once a day 1 drop into affected eye in the evening Levothyroxine Sodium [facility] [address]-66 88 MCG Orally Once a day 1 tablet Lantus [facility] [address]-03 100 UNIT/ML Subcutaneous Once a day Inject 20 units in the morning Acetaminophen [facility] [address]-13 325 MG Orally every 4 hrs 2 tablet as needed ProAir HFA [facility] [address]-35 108 (90 Base) MCG/ACT Inhalation every6 hours 2 puffs as needed Ranitidine HCl [facility] [address]-24 15 MG/ML Orally Twice a day 10 ml Flonase Allergy Relief [facility] [address]-71 50 MCG/ACT Nasally 2 times a day 1 spray in each nostril Albuterol Sulfate [facility] [address]-25 2.5 mg /3 mL (0.083 %) every 6 hours as needed August 02, 2014 1 Each by Inhalation route for cough and wheeze PRN for wheezing or cough Singulair [facility] [address]-71 10 MG Orally Once a day 1 tablet in the evening Results No Known Results Summary Purpose eClinicalWorks Submission
--- OUTSIDE RECORDS SUMMARY | 2017-07-09 20:00 | XMS REPORT ---
Author Author PHUC AGUIRRE [facility] Address [address] [place] [address] Care Team Providers Care Guidance Consultant Name Role Phone PHUC AGUIRRE Unavailable PROBLEMS Type Condition ICD9-CM Code MJP39-RM Code Onset Dates Condition Status SNOMED Code Problem Seizures R56.9 Active 38194592 Problem Unspecified intellectual disabilities F79 Active 26194717 Problem Acquired hypothyroidism E03.9 Active 217402845 Assessment Unspecified intellectual disabilities F79 Apr, Active 57756908 Problem Essential hypertension I10 Active 25533032 Problem Chronic obstructive pulmonary disease, unspecified J44.9 Active 23919524 Problem Diabetes E11.9 Active 83731396 Problem Shortness of breath R06.02 Active 876484922 Problem Muscle weakness (generalized) M62.81 Active 60011642 Problem Hypercarbia R06.89 Active 70194469 Problem Abnormality of gait R26.9 Active 43131946 ALLERGIES Unknown Allergies SOCIAL HISTORY No smoking Hx information available PLAN OF CARE VITAL SIGNS MEDICATIONS Unknown Medications RESULTS No Results PROCEDURES Procedure Date Ordered Related Diagnosis Body Site Stable Visit (10 minutes) Apr 22, 2016 IMMUNIZATIONS No Known Immunizations
--- OUTSIDE RECORDS SUMMARY | 2017-07-09 20:01 | XMS REPORT | Continuity of Care Document ---
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 [id number] Drug Allergy Unknown N/A 2013 Medications There is no data. Problems Date Dx Coded Attending Type Code Diagnosis Diagnosed By 05/29/2008 TARYN ANTONY MD 401.1 ESSENTIAL HYPERTENSION BENIGN 05/29/2008 TARYN ANTONY MD V70.3 SPORTS/SCHOOL EXAM 05/29/2008 TARYN ANTONY MD 401.1 ESSENTIAL HYPERTENSION BENIGN 05/29/2008 TARYN ANTONY MD V70.3 SPORTS/SCHOOL EXAM 05/29/2008 TARYN ANTONY MD 401.1 ESSENTIAL HYPERTENSION BENIGN 05/29/2008 TARYN ANTONY MD V70.3 SPORTS/SCHOOL EXAM 05/29/2008 PHUC AGUIRRE APRN S 401.1 ESSENTIAL HYPERTENSION BENIGN 05/29/2008 MATHEW AGUIRRE APRNA S V70.3 SPORTS/SCHOOL EXAM 05/29/2008 GIOVANY VELEZ APRN N 401.1 ESSENTIAL HYPERTENSION BENIGN 05/29/2008 GIOVANY VELEZ APRN N V70.3 SPORTS/SCHOOL EXAM 05/29/2008 MATHEW AGUIRRE APRNA S 401.1 ESSENTIAL HYPERTENSION BENIGN 05/29/2008 CARLA VOLTAGE REGULATOR ASSEMBLER, PHUC S V70.3 SPORTS/SCHOOL EXAM 05/29/2008 CARLA ALVARADO, PHUC S 401.1 ESSENTIAL HYPERTENSION BENIGN 05/29/2008 CARLA ALVARADO, PHUC S V70.3 SPORTS/SCHOOL EXAM 05/29/2008 CANAS DO, ELLIS K 401.1 ESSENTIAL HYPERTENSION BENIGN 05/29/2008 CANAS DO, ELLIS K V70.3 SPORTS/SCHOOL EXAM 05/29/2008 CANAS DO, ELLIS K 401.1 ESSENTIAL HYPERTENSION BENIGN 05/29/2008 CANAS DO, ELLIS K V70.3 SPORTS/SCHOOL EXAM 05/29/2008 KELVIN ALVARADO ERICA R 401.1 ESSENTIAL HYPERTENSION BENIGN 05/29/2008 KELVIN ALVARADO ERICA R V70.3 SPORTS/SCHOOL EXAM 05/29/2008 CANAS DO, ELLIS K 401.1 ESSENTIAL HYPERTENSION BENIGN 05/29/2008 CANAS DO, ELLIS K V70.3 SPORTS/SCHOOL EXAM 05/29/2008 CARLA ALVARADO, PHUC S 401.1 ESSENTIAL HYPERTENSION BENIGN 05/29/2008 RIZWAN AGUIRRE APRNNDA S V70.3 SPORTS/SCHOOL EXAM 12/25/2008 TARYN ANTONY MD V70.0 ROUTINE GENERAL MEDICAL EXAMINATION AT A HEALTH CARE FACILITY 12/25/2008 TARYN ANTONY MD V70.0 ROUTINE GENERAL MEDICAL EXAMINATION AT A HEALTH CARE FACILITY 12/25/2008 TARYN ANTONY MD V70.0 ROUTINE GENERAL MEDICAL EXAMINATION AT A HEALTH CARE FACILITY 12/25/2008 PHUC AGUIRRE APRN S V70.0 ROUTINE GENERAL MEDICAL EXAMINATION AT A HEALTH CARE FACILITY 12/25/2008 GIOVANY VELEZ APRN N V70.0 ROUTINE GENERAL MEDICAL EXAMINATION AT A HEALTH CARE FACILITY 12/25/2008 PHUC AGUIRRE APRN S V70.0 ROUTINE GENERAL MEDICAL EXAMINATION AT A HEALTH CARE FACILITY 12/25/2008 MATHEW AGUIRRE APRNA S V70.0 ROUTINE GENERAL MEDICAL EXAMINATION AT A HEALTH CARE FACILITY 12/25/2008 CANAS DO, ELLIS K V70.0 ROUTINE GENERAL MEDICAL EXAMINATION AT A HEALTH CARE FACILITY 12/25/2008 CANAS DO, ELLIS K V70.0 ROUTINE GENERAL MEDICAL EXAMINATION AT A HEALTH CARE FACILITY 12/25/2008 ANIVAL WARREN APRNIA R V70.0 ROUTINE GENERAL MEDICAL EXAMINATION AT A HEALTH CARE FACILITY 12/25/2008 ELLIS CANAS DO V70.0 ROUTINE GENERAL MEDICAL EXAMINATION AT A HEALTH CARE FACILITY 12/25/2008 CARLA VOLTAGE REGULATOR ASSEMBLER, PHUC S V70.0 ROUTINE GENERAL MEDICAL EXAMINATION AT A HEALTH CARE FACILITY 06/25/2009 TARYN ANTONY MD 244.9 UNSPECIFIED ACQUIRED HYPOTHYROIDISM 06/25/2009 TARYN ANTONY MD 272.4 OTHER AND UNSPECIFIED HYPERLIPIDEMIA 06/25/2009 TARYN ANTONY MD 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 06/25/2009 TARYN ANTONY MD 244.9 UNSPECIFIED ACQUIRED HYPOTHYROIDISM 06/25/2009 TARYN ANTONY MD 272.4 OTHER AND UNSPECIFIED HYPERLIPIDEMIA 06/25/2009 TARYN ANTONY MD 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 06/25/2009 TARYN ANTONY MD 244.9 UNSPECIFIED ACQUIRED HYPOTHYROIDISM 06/25/2009 TARYN ANTONY MD 272.4 OTHER AND UNSPECIFIED HYPERLIPIDEMIA 06/25/2009 TARYN ANTONY MD 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 06/25/2009 CARLA VOLTAGE REGULATOR ASSEMBLER, PHUC S 244.9 UNSPECIFIED ACQUIRED HYPOTHYROIDISM 06/25/2009 CARLA VOLTAGE REGULATOR ASSEMBLER, PHUC S 272.4 OTHER AND UNSPECIFIED HYPERLIPIDEMIA 06/25/2009 CARLA VOLTAGE REGULATOR ASSEMBLER, PHUC S 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 06/25/2009 CASH CASHERO VOLTAGE REGULATOR ASSEMBLER, GIOVANY N 244.9 UNSPECIFIED ACQUIRED HYPOTHYROIDISM 06/25/2009 CASH CASHERO VOLTAGE REGULATOR ASSEMBLER, GIOVANY N 272.4 OTHER AND UNSPECIFIED HYPERLIPIDEMIA 06/25/2009 CASH CASHERO VOLTAGE REGULATOR ASSEMBLER, GIOVANY N 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 06/25/2009 CARLA VOLTAGE REGULATOR ASSEMBLER, PHUC S 244.9 UNSPECIFIED ACQUIRED HYPOTHYROIDISM 06/25/2009 CARLA VOLTAGE REGULATOR ASSEMBLER, PHUC S 272.4 OTHER AND UNSPECIFIED HYPERLIPIDEMIA 06/25/2009 CARLA VOLTAGE REGULATOR ASSEMBLER, PHUC S 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 06/25/2009 CARLA VOLTAGE REGULATOR ASSEMBLER, PHUC S 244.9 UNSPECIFIED ACQUIRED HYPOTHYROIDISM 06/25/2009 CARLA VOLTAGE REGULATOR ASSEMBLER, PHUC S 272.4 OTHER AND UNSPECIFIED HYPERLIPIDEMIA 06/25/2009 CALRA VOLTAGE REGULATOR ASSEMBLER, PHUC S 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 06/25/2009 CANAS DO, ELLIS K 244.9 UNSPECIFIED ACQUIRED HYPOTHYROIDISM 06/25/2009 CANAS DO, ELLIS K 272.4 OTHER AND UNSPECIFIED HYPERLIPIDEMIA 06/25/2009 CANAS DO, ELLIS K 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 06/25/2009 CANAS DO, ELLIS K 244.9 UNSPECIFIED ACQUIRED HYPOTHYROIDISM 06/25/2009 CANAS DO, ELLIS K 272.4 OTHER AND UNSPECIFIED HYPERLIPIDEMIA 06/25/2009 CANAS DO, ELLIS K 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 06/25/2009 WARREN VOLTAGE REGULATOR ASSEMBLER, ERICA R 244.9 UNSPECIFIED ACQUIRED HYPOTHYROIDISM 06/25/2009 WARREN VOLTAGE REGULATOR ASSEMBLER, ERICA R 272.4 OTHER AND UNSPECIFIED HYPERLIPIDEMIA 06/25/2009 WARREN VOLTAGE REGULATOR ASSEMBLER, ERICA R 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 06/25/2009 CANAS DO, ELLIS K 244.9 UNSPECIFIED ACQUIRED HYPOTHYROIDISM 06/25/2009 CANAS DO, ELLIS K 272.4 OTHER AND UNSPECIFIED HYPERLIPIDEMIA 06/25/2009 CANAS DO, ELLIS K 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 06/25/2009 CARLA ALVARADO PHUC S 244.9 UNSPECIFIED ACQUIRED HYPOTHYROIDISM 06/25/2009 CARLA ALVARADO PHUC S 272.4 OTHER AND UNSPECIFIED HYPERLIPIDEMIA 06/25/2009 CARLA VOLTAGE REGULATOR ASSEMBLER, PHUC S 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 11/26/2009 TARYN ANTONY MD 799.02 HYPOXEMIA 11/26/2009 TARYN ANTONY MD 799.02 HYPOXEMIA 11/26/2009 TARYN ANTONY MD 799.02 HYPOXEMIA 11/26/2009 CARLA ALVARADO PHUC S 799.02 HYPOXEMIA 11/26/2009 GIOVANY VELEZ APRN 799.02 HYPOXEMIA 11/26/2009 CARLA ALVARADO PHUC S 799.02 HYPOXEMIA 11/26/2009 RIZWAN AGUIRRE APRNNDA S 799.02 HYPOXEMIA 11/26/2009 CANAS DO, ELLSI K 799.02 HYPOXEMIA 11/26/2009 CANAS DO, ELLIS K 799.02 HYPOXEMIA 11/26/2009 BASILIO WARREN APRNRICIA R 799.02 HYPOXEMIA 11/26/2009 CANAS DO, ELLIS K 799.02 HYPOXEMIA 11/26/2009 RIZWAN AGUIRRE APRNNDA S 799.02 HYPOXEMIA 02/05/2011 TARYN ANTONY MD 786.50 CHEST PAIN 02/05/2011 TARYN ANTONY MD 786.50 CHEST PAIN 02/05/2011 TARYN ANTONY MD 786.50 CHEST PAIN 02/05/2011 PHUC AGUIRRE APRN S 786.50 CHEST PAIN 02/05/2011 SHAILESH ULRICH APRN, GIOVANY N 786.50 CHEST PAIN 02/05/2011 MATHEW AGUIRRE APRNA S 786.50 CHEST PAIN 02/05/2011 RIZWAN AGUIRRE APRNNDA S 786.50 CHEST PAIN 02/05/2011 CANAS DO, ELLIS K 786.50 CHEST PAIN 02/05/2011 CANAS DO, ELLIS K 786.50 CHEST PAIN 02/05/2011 BASILIO WARREN APRNRICIA R 786.50 CHEST PAIN 02/05/2011 CANAS DO, ELLIS K 786.50 CHEST PAIN 02/05/2011 MATHEW AGUIRRE APRNA S 786.50 CHEST PAIN 05/27/2011 TARYN ANTONY MD 786.05 shortness of breath 05/27/2011 TARYN ANTONY MD 786.05 shortness of breath 05/27/2011 TARYN ANTONY MD 786.05 shortness of breath 05/27/2011 PHUC AGUIRRE APRN S 786.05 shortness of breath 05/27/2011 SHAILESH ULRICH APRN, GIOVANY N 786.05 shortness of breath 05/27/2011 MATHEW AGUIRRE APRNA S 786.05 shortness of breath 05/27/2011 MATHEW AGUIRRE APRNA S 786.05 shortness of breath 05/27/2011 CANAS DO, ELLIS K 786.05 shortness of breath 05/27/2011 CANAS DO, ELLIS K 786.05 shortness of breath 05/27/2011 KELVIN ALVARADO ERICA R 786.05 shortness of breath 05/27/2011 CANAS DO, ELLIS K 786.05 shortness of breath 05/27/2011 MATHEW AGUIRRE APRNA S 786.05 shortness of breath 06/11/2011 TARYN ANTONY MD 428.0 CONGESTIVE HEART FAILURE UNSPECIFIED 06/11/2011 TARYN ANTONY MD 428.0 CONGESTIVE HEART FAILURE UNSPECIFIED 06/11/2011 TARYN ANTONY MD 428.0 CONGESTIVE HEART FAILURE UNSPECIFIED 06/11/2011 RIZWAN AGUIRRE APRNNDA S 428.0 CONGESTIVE HEART FAILURE UNSPECIFIED 06/11/2011 GIOVANY VELEZ APRN N 428.0 CONGESTIVE HEART FAILURE UNSPECIFIED 06/11/2011 MATHEW AGUIRRE APRNA S 428.0 CONGESTIVE HEART FAILURE UNSPECIFIED 06/11/2011 CARLA ALVARADO PHUC S 428.0 CONGESTIVE HEART FAILURE UNSPECIFIED 06/11/2011 CANAS DO, ELLIS K 428.0 CONGESTIVE HEART FAILURE UNSPECIFIED 06/11/2011 CANAS DO, ELLIS K 428.0 CONGESTIVE HEART FAILURE UNSPECIFIED 06/11/2011 ANIVAL WARREN APRNIA R 428.0 CONGESTIVE HEART FAILURE UNSPECIFIED 06/11/2011 CANAS DO, ELLIS K 428.0 CONGESTIVE HEART FAILURE UNSPECIFIED 06/11/2011 CARLA ALVARADO PHUC S 428.0 CONGESTIVE HEART FAILURE UNSPECIFIED 07/30/2011 TARYN ANTONY MD 466.0 ACUTE BRONCHITIS 07/30/2011 TARYN ANTONY MD 466.0 ACUTE BRONCHITIS 07/30/2011 TARYN ANTONY MD 466.0 ACUTE BRONCHITIS 07/30/2011 MATHEW AGUIRRE APRNA S 466.0 ACUTE BRONCHITIS 07/30/2011 GIOVANY VELEZ APRN N 466.0 ACUTE BRONCHITIS 07/30/2011 RIZWAN AGUIRRE APRNNDA S 466.0 ACUTE BRONCHITIS 07/30/2011 MATHEW AGUIRRE APRNA S 466.0 ACUTE BRONCHITIS 07/30/2011 CANAS DO, ELLIS K 466.0 ACUTE BRONCHITIS 07/30/2011 CANAS DO, ELLIS K 466.0 ACUTE BRONCHITIS 07/30/2011 ERICA WARREN APRN R 466.0 ACUTE BRONCHITIS 07/30/2011 CANAS DO, ELLIS K 466.0 ACUTE BRONCHITIS 07/30/2011 RIZWAN AGUIRRE APRNNDA S 466.0 ACUTE BRONCHITIS 09/22/2011 TARYN ANTONY MD 477.9 ALLERGIC RHINITIS CAUSE UNSPECIFIED 09/22/2011 TARYN ANTONY MD 477.9 ALLERGIC RHINITIS CAUSE UNSPECIFIED 09/22/2011 TARYN ANTONY MD 477.9 ALLERGIC RHINITIS CAUSE UNSPECIFIED 09/22/2011 CARLA VOLTAGE REGULATOR ASSEMBLER, PHUC S 477.9 ALLERGIC RHINITIS CAUSE UNSPECIFIED 09/22/2011 SHAILESH ULRICH CHRISTIANOGIOVANY N 477.9 ALLERGIC RHINITIS CAUSE UNSPECIFIED 09/22/2011 PHUC AGUIRRE APRN S 477.9 ALLERGIC RHINITIS CAUSE UNSPECIFIED 09/22/2011 PHUC AGUIRRE APRN S 477.9 ALLERGIC RHINITIS CAUSE UNSPECIFIED 09/22/2011 CANAS DO, ELLIS K 477.9 ALLERGIC RHINITIS CAUSE UNSPECIFIED 09/22/2011 CANAS DO, ELLIS K 477.9 ALLERGIC RHINITIS CAUSE UNSPECIFIED 09/22/2011 ERICA WARREN APRN 477.9 ALLERGIC RHINITIS CAUSE UNSPECIFIED 09/22/2011 CANAS DO, ELLIS K 477.9 ALLERGIC RHINITIS CAUSE UNSPECIFIED 09/22/2011 PHUC AGUIRRE APRN S 477.9 ALLERGIC RHINITIS CAUSE UNSPECIFIED 02/14/2012 Ot 846.0 SPRAIN LUMBOSACRAL 02/14/2012 Ot 924.01 CONTUSION OF HIP 02/14/2012 Ot 959.6 HIP THIGH INJURY NOS 02/14/2012 Ot E000.8 OTHER EXTERNAL CAUSE STATUS 02/14/2012 Ot E849.0 ACCIDENT IN HOME 02/14/2012 Ot E884.4 FALL FROM BED 06/09/2012 Ot 244.0 POSTSURGICAL HYPOTHYROID 06/09/2012 Ot 272.4 HYPERLIPIDEMIA NEC/NOS 06/09/2012 Ot 278.00 OBESITY, NOS 06/09/2012 Ot 285.9 ANEMIA NOS 06/09/2012 Ot 319 UNSPECIFIED INTELLECTUAL DISABILITIES 06/09/2012 Ot 401.9 HYPERTENSION NOS 06/09/2012 Ot 425.4 PRIM CARDIOMYOPATHY NEC 06/09/2012 Ot 428.0 CONGESTIVE HEART FAILURE NOS 06/09/2012 Ot 428.22 CHRONIC SYSTOLIC HRT FAILURE 06/09/2012 Ot 733.81 MALUNION OF FRACTURE 06/09/2012 Ot 812.40 FX LOWER HUMERUS NOS-CL 06/09/2012 Ot E000.8 OTHER EXTERNAL CAUSE STATUS 06/09/2012 Ot E001.0 ACTIVITIES INVOLVING WALKING, MARCHING A 06/09/2012 Ot E885.9 FALL FROM SLIPPING, TRIPPING, OR STUMBLI 06/09/2012 Ot V85.30 BODY MASS INDEX 30.0-30.9, ADULT 07/04/2012 CARLA VOLTAGE REGULATOR ASSEMBLER, PHUC S 493.90 ASTHMA UNSPECIFIED 07/04/2012 SHAILESH [place] VOLTAGE REGULATOR ASSEMBLERGIOVANY N 493.90 ASTHMA UNSPECIFIED 07/04/2012 RIZWAN AGUIRRE APRNNDA S 493.90 ASTHMA UNSPECIFIED 07/04/2012 CARLA ALVARADO PHUC S 493.90 ASTHMA UNSPECIFIED 07/04/2012 CANAS DO ELLIS K 493.90 ASTHMA UNSPECIFIED 07/04/2012 CANAS DO ELLIS K 493.90 ASTHMA UNSPECIFIED 07/04/2012 ANIVAL WARREN APRNIA R 493.90 ASTHMA UNSPECIFIED 07/04/2012 CANAS DO, ELLIS K 493.90 ASTHMA UNSPECIFIED 07/04/2012 CARLA ALVARADO PHUC S 493.90 ASTHMA UNSPECIFIED 05/18/2013 SHAILESH ULRICH APRN GIOVANY N 786.07 WHEEZING 05/18/2013 RIZWAN AGUIRRE APRNNDA S 786.07 WHEEZING 05/18/2013 RIZWAN AGUIRRE APRNNDA S 786.07 WHEEZING 05/18/2013 MISSAEL ORELLANA, ELLIS K 786.07 WHEEZING 05/18/2013 CANAS DO, ELLIS K 786.07 WHEEZING 05/18/2013 ANIVAL WARREN APRNIA R 786.07 WHEEZING 05/18/2013 MISSAEL ORELLANA, ELLIS K 786.07 WHEEZING 05/18/2013 RIZWAN AGUIRRE APRNNDA S 786.07 WHEEZING 11/20/2013 SHAILESH ULRICH APRN GIOAVNY N V76.10 BREAST CANCER SCREENING 11/20/2013 RIZWAN AGUIRRE APRNNDA S V76.10 BREAST CANCER SCREENING 11/20/2013 RIZWAN AGUIRRE APRNNDA S V76.10 BREAST CANCER SCREENING 11/20/2013 MISSAEL ORELLANA ELLIS K V76.10 BREAST CANCER SCREENING 11/20/2013 CANAS DO, ELLIS K V76.10 BREAST CANCER SCREENING 11/20/2013 ERICA WARREN APRN R V76.10 BREAST CANCER SCREENING 11/20/2013 CANAS DO ELLIS K V76.10 BREAST CANCER SCREENING 11/20/2013 RIZWAN AGUIRRE APRNNDA S V76.10 BREAST CANCER SCREENING 01/11/2014 MATHEW AGUIRRE APRNA S 781.2 ABNORMALITY OF GAIT 01/11/2014 MATHEW AGUIRRE APRNA S 781.2 ABNORMALITY OF GAIT 01/11/2014 ELLIS ACNAS DO K 781.2 ABNORMALITY OF GAIT 01/11/2014 ELLIS CANAS DO K 781.2 ABNORMALITY OF GAIT 01/11/2014 ERICA WARREN APRN R 781.2 ABNORMALITY OF GAIT 01/11/2014 ELLIS CANAS DO K 781.2 ABNORMALITY OF GAIT 01/11/2014 PHUC AGUIRRE APRN S 781.2 ABNORMALITY OF GAIT 03/08/2014 ELLIS CANAS DO K 465.9 UPPER RESPIRATORY INFECTION 03/08/2014 ELLIS CANAS DO K 465.9 UPPER RESPIRATORY INFECTION 03/08/2014 ERICA WARREN APRN R 465.9 UPPER RESPIRATORY INFECTION 03/08/2014 ELLIS CANAS DO K 465.9 UPPER RESPIRATORY INFECTION 03/08/2014 PHUC AGUIRRE APRN S 465.9 UPPER RESPIRATORY INFECTION 04/16/2014 DENIS GIPSON, MEGHANA Walton Ot 319 UNSPECIFIED INTELLECTUAL DISABILITIES 04/16/2014 MEGHANA BARRIOS MD Ot 345.90 EPILEPSY UNSPEC W/O MENTION INTRACTABLE 04/16/2014 MEGHANA BARRIOS MD Ot 402.91 HYPERTENSIVE HRT DIS W HRT FAILURE NOS 04/16/2014 MEGHANA BARRIOS MD Ot 428.0 CONGESTIVE HEART FAILURE NOS 04/16/2014 MEGHANA BARRIOS MD Ot 491.21 OBSTR CHRONIC BRONCHITIS, W (ACUTE) EXAC 04/30/2014 ELLIS CANAS DO K 496 COPD 04/30/2014 ERICA WARREN APRN R 496 COPD 04/30/2014 ELLIS CANAS DO 496 COPD 04/30/2014 PHUC AGUIRRE APRN S 496 COPD 05/04/2014 ERIK SANTIAGO MD Ot 519.11 ACUTE BRONCHOSPASM 05/04/2014 ERIK SANTIAGO MD Ot 786.2 COUGH 06/18/2014 ELLIS CANAS DO Ot 244.0 POSTSURGICAL HYPOTHYROID 06/18/2014 ELLIS CANAS DO Ot 272.0 PURE HYPERCHOLESTEROLEM 06/18/2014 ELLIS CANAS DO Ot 278.00 OBESITY, NOS 06/18/2014 ELLIS CANAS DO Ot 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 06/18/2014 ELLIS CANAS DO Ot 310.1 PERSONALITY CHANGE DUE TO CONDITIONS CLA 06/18/2014 ELLIS CANAS DO Ot 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 06/18/2014 ELLIS CANAS DO Ot 345.90 EPILEPSY UNSPEC W/O MENTION INTRACTABLE 06/18/2014 ELLIS CANAS DO Ot 365.9 GLAUCOMA NOS 06/18/2014 ELLIS CANAS DO Ot 401.9 HYPERTENSION NOS 06/18/2014 ELLIS CANAS DO Ot 416.8 CHR PULMON HEART DIS NEC 06/18/2014 ELLIS CANAS DO Ot 425.4 PRIM CARDIOMYOPATHY NEC 06/18/2014 ELLIS CANAS DO Ot 428.0 CONGESTIVE HEART FAILURE NOS 06/18/2014 ELLIS CANAS DO Ot 428.32 CHRONIC DIASTOLIC HRT FAILURE 06/18/2014 ELLIS CANAS DO Ot 491.21 06/18/2014 ELLIS CANAS DO Ot 493.90 ASTHMA, UNSPECIFIED 06/18/2014 ELLIS CANAS DO Ot 518.84 ACUTE AND CHRONIC RESPIRATORY FAILURE 06/18/2014 ELLIS CANAS DO Ot 716.90 ARTHROPATHY NOS-UNSPEC 06/18/2014 ELLIS CANAS DO Ot 722.6 DISC DEGENERATION NOS 06/18/2014 ELLIS CANAS DO Ot 742.9 NERVOUS SYSTEM ANOM NOS 06/18/2014 ELLIS CANAS DO Ot 780.39 06/18/2014 ELLIS CANAS DO Ot 781.0 ABN INVOLUN MOVEMENT NEC 06/18/2014 ELLIS CANAS DO Ot V85.33 BODY MASS INDEX 33.0-33.9, ADULT 06/27/2014 Ot 244.9 HYPOTHYROIDISM NOS 06/27/2014 Ot 272.0 PURE HYPERCHOLESTEROLEM 06/27/2014 Ot 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 06/27/2014 Ot 401.9 HYPERTENSION NOS 06/27/2014 Ot 416.8 CHR PULMON HEART DIS NEC 06/27/2014 Ot 428.0 CONGESTIVE HEART FAILURE NOS 06/27/2014 Ot 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 06/27/2014 Ot 780.93 MEMORY LOSS 06/27/2014 Ot 786.05 SHORTNESS OF BREATH 06/27/2014 Ot V58.69 OTH MED,LT, CURRENT USE 07/26/2014 ELLIS CANAS DO 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 07/26/2014 ELLIS CANAS DO 644.10 FALSE LABOR PAIN 07/26/2014 CARLA VOLTAGE REGULATOR ASSEMBLER, PHUC S 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 07/26/2014 CARLA BHARDWAJN, PHUC S 644.10 FALSE LABOR PAIN 08/02/2014 CARLA VOLTAGE REGULATOR ASSEMBLER, PHUC S 427.89 OTHER SPECIFIED CARDIAC DYSRHYTHMIAS 08/02/2014 CARLA VOLTAGE REGULATOR ASSEMBLER, PHUC S 427.9 ARRHYTHMIA, CARDIAC (SINUS) 08/02/2014 CARLA VOLTAGE REGULATOR ASSEMBLER, PHUC S 728.87 MUSCLE WEAKNESS (GENERALIZED) 08/02/2014 CARLA VOLTAGE REGULATOR ASSEMBLER, PHUC S 780.09 ALTERATION OF CONSCIOUSNESS OTHER 08/03/2014 DENISSE GIPSON, JUSTICE N Ot 244.0 08/03/2014 JUSTICE SALCEDO MD N Ot 255.9 08/03/2014 NITA SALCEDO MDY N Ot 272.1 08/03/2014 DENISSE GIPSON JUSTICE N Ot 275.2 08/03/2014 DENISSE GIPSON JUSTICE N Ot 276.50 08/03/2014 DENISSE GIPSON JUSTICE N Ot 276.7 08/03/2014 NITA SALCEDO MDY N Ot 278.03 08/03/2014 DENISSE GIPSON JUSTICE N Ot 310.1 08/03/2014 DENISSE GIPSON JUSTICE N Ot 318.0 08/03/2014 DENISSE GIPSON JUSTICE N Ot 396.3 08/03/2014 DENISSE GIPSON JUSTICE N Ot 397.0 08/03/2014 NITA SALCEDO MDY N Ot 401.9 08/03/2014 DENISSE GIPSON JUSTICE N Ot 416.8 08/03/2014 DENISSE GIPSON JUSTICE N Ot 425.4 08/03/2014 DENISSE GIPSON, JUSTICE N Ot 427.89 08/03/2014 NITA SALCEDO MDY N Ot 428.0 08/03/2014 DENISSE GIPSON JUSTICE N Ot 428.42 08/03/2014 DENISSE GIPSON JUSTICE N Ot 493.20 08/03/2014 DENISSE GIPSON JUSTICE N Ot 518.84 08/03/2014 DENISSE GIPSON JUSTICE N Ot 716.90 08/03/2014 DENISSE GIPSON JUSTICE N Ot 722.6 08/03/2014 DENISSE GIPSON, JUSTICE N Ot V85.36 08/03/2014 DENISSE GIPSON, JUSTICE N Ot 244.0 08/03/2014 DENISSE GIPSON, JUSTICE N Ot 255.9 08/03/2014 DENISSE GIPSON, JUSTICE N Ot 272.1 08/03/2014 DENISSE GIPSON, JUSTICE N Ot 275.2 08/03/2014 DENISSE GIPSON, JUSTICE N Ot 276.50 08/03/2014 DENISSE GIPSON, JUSTICE N Ot 276.7 08/03/2014 DENISSE GIPSON, JUSTICE N Ot 278.03 08/03/2014 DENISSE GIPSON, JUSTICE N Ot 310.1 08/03/2014 DENISSE GIPSON, JUSTICE N Ot 318.0 08/03/2014 DENISSE GIPSON, JUSTICE N Ot 396.3 08/03/2014 DENISSE GIPSON, JUSTICE N Ot 397.0 08/03/2014 DENISSE GIPSON, JUSTICE N Ot 401.9 08/03/2014 DENISSE GIPSON, JUSTICE N Ot 416.8 08/03/2014 DENISSE GIPSON, JUSTICE N Ot 425.4 08/03/2014 DENISSE GIPSON, JUSTICE N Ot 427.89 08/03/2014 DENISSE GIPSON, JUSTICE N Ot 428.0 08/03/2014 DENISSE GIPSON, JUSTICE N Ot 428.42 08/03/2014 DENISSE GIPSON, JUSTICE N Ot 493.20 08/03/2014 DENISSE GIPSON, JUSTICE N Ot 518.84 08/03/2014 DENISSE GIPSON, JUSTICE N Ot 716.90 08/03/2014 DENISSE GIPSON, JUSTICE N Ot 722.6 08/03/2014 DENISSE GIPSON, JUSTICE N Ot V85.36 08/04/2014 DENISSE GIPSON, JUSTICE N Ot 244.0 08/04/2014 DENISSE GIPSON, JUSTICE N Ot 255.9 08/04/2014 DENISSE GIPSON, JUSTICE N Ot 272.1 08/04/2014 DENISSE GIPSON, JUSTICE N Ot 275.2 08/04/2014 DENISSE GIPSON, JUSTICE N Ot 276.50 08/04/2014 DENISSE GIPSON, JUSTICE N Ot 276.7 08/04/2014 DENISSE GIPSON, JUSTICE N Ot 278.03 08/04/2014 DENISSE GIPSON, JUSTICE N Ot 310.1 08/04/2014 DENISSE GIPSON, JUSTICE N Ot 318.0 08/04/2014 DENISSE GIPSON, JUSTICE N Ot 396.3 08/04/2014 DENISSE GIPSON, JUSTICE N Ot 397.0 08/04/2014 DENISSE GIPSON, JUSTICE N Ot 401.9 08/04/2014 DENISSE GIPSON, JUSTICE N Ot 416.8 08/04/2014 DENISSE GIPSON, JUSTICE N Ot 425.4 08/04/2014 DENISSE GIPSON, JUSTICE N Ot 427.89 08/04/2014 DENISSE GIPSON, JUSTICE N Ot 428.0 08/04/2014 DENISSE GIPSON, JUSTICE N Ot 428.42 08/04/2014 DENISSE GIPSON, JUSTICE N Ot 493.20 08/04/2014 DENISSE GIPSON, JUSTICE N Ot 518.84 08/04/2014 DENISSE GIPSON, JUSTICE N Ot 716.90 08/04/2014 DENISSE GIPSON, JUSTICE N Ot 722.6 08/04/2014 DENISSE GIPSON, JUSTICE N Ot V85.36 08/05/2014 DENISSE GIPSON, JUSTICE N Ot 244.0 08/05/2014 DENISSE GIPSON, JUSTICE N Ot 255.9 08/05/2014 DENISSE GIPSON, JUSTICE N Ot 272.1 08/05/2014 EDNISSE GIPSON, JUSTICE N Ot 275.2 08/05/2014 DENISSE GIPSON, JUSTICE N Ot 276.50 08/05/2014 DENISSE GIPSON, JUSTICE N Ot 276.7 08/05/2014 DENISSE GIPSON, JUSTICE N Ot 278.03 08/05/2014 DENISSE GIPSON, JUSTICE N Ot 310.1 08/05/2014 DENISSE GIPSON, JUSTICE N Ot 318.0 08/05/2014 DENISSE GIPSON, JUSTICE N Ot 396.3 08/05/2014 DENISSE GIPSON, JUSTICE N Ot 397.0 08/05/2014 DENISSE GIPSON, JUSTICE N Ot 401.9 08/05/2014 DENISSE GIPSON, JUSTICE N Ot 416.8 08/05/2014 DENISSE GIPSON, JUSTICE N Ot 425.4 08/05/2014 DENISSE GIPSON, JUSTICE N Ot 427.89 08/05/2014 DENISSE GIPSON, JUSTICE N Ot 428.0 08/05/2014 DENISSE GIPSON, JUSTICE N Ot 428.42 08/05/2014 DENISSE GIPSON, JUSTICE N Ot 493.20 08/05/2014 DENISSE GIPSON, JUSTICE N Ot 518.84 08/05/2014 DENISSE GIPSON, JUSTICE N Ot 716.90 08/05/2014 DENISSE GIPSON, JUSTICE N Ot 722.6 08/05/2014 DENISSE GIPSON, JUSTICE N Ot V85.36 08/06/2014 DENISSE GIPSON, JUSTICE N Ot 244.0 08/06/2014 DENISSE GIPSON, JUSTICE N Ot 255.9 08/06/2014 DEINSSE GIPSON, JUSTICE N Ot 272.1 08/06/2014 DENISSE GIPSON, JUSTICE N Ot 275.2 08/06/2014 DENISSE GIPSON, JUSTICE N Ot 276.50 08/06/2014 DENISSE GIPSON, JUSTICE N Ot 276.7 08/06/2014 DENISSE GIPSON, JUSTICE N Ot 278.03 08/06/2014 DENISSE GIPSON, JUSTICE N Ot 310.1 08/06/2014 DENISSE GIPSON, JUSTICE N Ot 318.0 08/06/2014 DENISSE GIPSON, JUSTICE N Ot 396.3 08/06/2014 DENISSE GIPSON, JUSTICE N Ot 397.0 08/06/2014 DENISSE GIPSON, JUSTICE N Ot 401.9 08/06/2014 DENISSE GIPSON, JUSTICE N Ot 416.8 08/06/2014 DENISSE GIPSON, JUSTICE N Ot 425.4 08/06/2014 DENISSE GIPSON, JUSTICE N Ot 427.89 08/06/2014 DENISSE GIPSON, JUSTICE N Ot 428.0 08/06/2014 DENISSE GIPSON, JUSTICE N Ot 428.42 08/06/2014 DENISSE GIPSON, JUSTICE N Ot 493.20 08/06/2014 DENISSE GIPSON, JUSTICE N Ot 518.84 08/06/2014 DENISSE GIPSON, JUSTICE N Ot 716.90 08/06/2014 DENISSE GIPSON, JUSTICE N Ot 722.6 08/06/2014 DENISSE GIPSON, JUSTICE N Ot V85.36 08/07/2014 DENISSE GIPSON, JUSTICE N Ot 244.0 08/07/2014 DENISSE GIPSON, JUSTICE N Ot 255.9 08/07/2014 DENISSE GIPSON, JUSTICE N Ot 272.1 08/07/2014 DENISSE GIPSON, JUSTICE N Ot 275.2 08/07/2014 DENISSE GIPSON, JUSTICE N Ot 276.50 08/07/2014 DENISSE GIPSON, JUSTICE N Ot 276.7 08/07/2014 DENISSE GIPSON, JUSTICE N Ot 278.03 08/07/2014 DENISSE GIPSON, JUSTICE N Ot 310.1 08/07/2014 DENISSE GIPSON, JUSTICE N Ot 318.0 08/07/2014 DENISSE GIPSON, JUSTICE N Ot 396.3 08/07/2014 DENISSE GIPSON, JUSTICE N Ot 397.0 08/07/2014 DENISSE GIPSON, JUSTICE N Ot 401.9 08/07/2014 DENISSE GIPSON, JUSTICE N Ot 416.8 08/07/2014 DENISSE GIPSON, JUSTICE N Ot 425.4 08/07/2014 DENISSE GIPSON, JUSTICE N Ot 427.89 08/07/2014 DENISSE GIPSON, JUSTICE N Ot 428.0 08/07/2014 DENISSE GIPSON, JUSTICE N Ot 428.42 08/07/2014 DENISSE GIPSON, JUSTICE N Ot 493.20 08/07/2014 DENISSE GIPSON, JUSTICE N Ot 518.84 08/07/2014 DENISSE GIPSON, JUSTICE N Ot 716.90 08/07/2014 DENISSE GIPSON, JUSTICE N Ot 722.6 08/07/2014 DENISSE GIPSON, JUSTICE N Ot V85.36 08/08/2014 DENISSE GIPSON, JUSTICE N Ot 244.0 08/08/2014 DENISSE GIPSON, JUSTICE N Ot 255.9 08/08/2014 DENISSE GIPSON, JUSTICE N Ot 272.1 08/08/2014 DENISSE GIPSON, JUSTICE N Ot 275.2 08/08/2014 DENISSE GIPSON, JUSTICE N Ot 276.50 08/08/2014 DENISSE GIPSON, JUSTICE N Ot 276.7 08/08/2014 DENISSE GIPSON, JUSTICE N Ot 278.03 08/08/2014 DENISSE GIPSON, JUSTICE N Ot 310.1 08/08/2014 DENISSE GIPSON, JUSTICE N Ot 318.0 08/08/2014 DENISSE GIPSON, JUSTICE N Ot 396.3 08/08/2014 DENISSE GIPSON, JUSTICE N Ot 397.0 08/08/2014 DENISSE GIPSON, JUSTICE N Ot 401.9 08/08/2014 DENISSE GIPSON, JUSTICE N Ot 416.8 08/08/2014 DENISSE GIPSON, JUSTICE N Ot 425.4 08/08/2014 DENISSE GIPSON, JUSTICE N Ot 427.89 08/08/2014 DENISSE GIPSON, JUSTICE N Ot 428.0 08/08/2014 DENISSE GIPSON, JUSTICE N Ot 428.42 08/08/2014 DENISSE GIPSON, JUSTICE N Ot 493.20 08/08/2014 DENISSE GIPSON, JUSTICE N Ot 518.84 08/08/2014 DENISSE GIPSON, JUSTICE N Ot 716.90 08/08/2014 DENISSE GIPSON, JUSTICE N Ot 722.6 08/08/2014 DENISSE GIPSON, JUSTICE N Ot V85.36 08/09/2014 DENISSE GIPSON, JUSTICE N Ot 244.0 08/09/2014 DENISSE GIPSON, JUSTICE N Ot 255.9 08/09/2014 DENISSE GIPSON, JUSTICE N Ot 272.1 08/09/2014 DENISSE GIPSON, JUSTICE N Ot 275.2 08/09/2014 DENISSE GIPSON, JUSTICE N Ot 276.50 08/09/2014 DENISSE GIPSON, JUSTICE N Ot 276.7 08/09/2014 DENISSE GIPSON, JUSTICE N Ot 278.03 08/09/2014 DENISSE GIPSON, JUSTICE N Ot 310.1 08/09/2014 DENISSE GIPSON, JUSTICE N Ot 318.0 08/09/2014 DENISSE GIPSON, JUSTICE N Ot 396.3 08/09/2014 DENISSE GIPSON, JUSTICE N Ot 397.0 08/09/2014 DENISSE GIPSON, JUSTICE N Ot 401.9 08/09/2014 JUSTICE SALCEDO MD Ot 416.8 08/09/2014 JUSTICE SALCEDO MD Ot 425.4 08/09/2014 JUSTICE SALCEDO MD Ot 427.89 08/09/2014 JUSTICE SALCEDO MD Ot 428.0 08/09/2014 JUSTICE SALCEDO MD Ot 428.42 08/09/2014 JUSTICE SALCEDO MD Ot 493.20 08/09/2014 JUSTICE SALCEDO MD Ot 518.84 08/09/2014 JUSTICE SALCEDO MD Ot 716.90 08/09/2014 JUSTICE SALCEDO MD Ot 722.6 08/09/2014 JUSTICE SALCEDO MD Ot V85.36 08/09/2014 JUSTICE SALCEDO MD Ot 244.0 POSTSURGICAL HYPOTHYROID 08/09/2014 JUSTICE SALCEDO MD Ot 255.9 ADRENAL DISORDER N0S 08/09/2014 JUSTICE SALCEDO MD Ot 272.1 PURE HYPERGLYCERIDEMIA 08/09/2014 JUSTICE SALCEDO MD Ot 275.2 DIS MAGNESIUM METABOLISM 08/09/2014 JUSTICE SALCEDO MD Ot 276.0 HYPEROSMOLALITY 08/09/2014 JUSTICE SALCEDO MD Ot 276.50 VOLUME DEPLETION, UNSPECIFIED 08/09/2014 JUSTICE SALCEDO MD Ot 276.7 HYPERPOTASSEMIA 08/09/2014 JUSTICE SALCEDO MD Ot 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 08/09/2014 JUSTICE SALCEDO MD Ot 285.9 ANEMIA NOS 08/09/2014 JUSTICE SALCEDO MD Ot 310.1 PERSONALITY CHANGE DUE TO CONDITIONS CLA 08/09/2014 JUSTICE SALCEDO MD Ot 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 08/09/2014 JUSTICE SALCEDO MD Ot 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 08/09/2014 JUSTICE SALCEDO MD Ot 397.0 TRICUSPID VALVE DISEASE 08/09/2014 JUSTICE SALCEDO MD Ot 401.9 HYPERTENSION NOS 08/09/2014 JUSTICE SALCEDO MD Ot 416.8 CHR PULMON HEART DIS NEC 08/09/2014 JUSTICE SALCEDO MD Ot 425.4 08/09/2014 JUSTICE SALCEDO MD Ot 425.9 SECOND CARDIOMYOPATH NOS 08/09/2014 JUSTICE SALCEDO MD Ot 427.81 SINOATRIAL NODE DYSFUNCT 08/09/2014 JUSTICE SALCEDO MD Ot 427.89 08/09/2014 JUSTICE SALCEDO MD Ot 428.0 CONGESTIVE HEART FAILURE NOS 08/09/2014 JUSTICE SALCEDO MD Ot 428.42 CHRONIC SYSTOLIC/DIASTOLIC HRT FAILURE 08/09/2014 JUSTICE SALCEDO MD Ot 493.20 CHRONIC OBSTRUCTIVE ASTHMA, NOS 08/09/2014 JUSTICE SALCEDO MD Ot 518.84 ACUTE AND CHRONIC RESPIRATORY FAILURE 08/09/2014 JUSTICE SALCEDO MD Ot 716.90 ARTHROPATHY NOS-UNSPEC 08/09/2014 JUSTICE SALCEDO MD Ot 722.6 DISC DEGENERATION NOS 08/09/2014 JUSTICE SALCEDO MD Ot 742.4 BRAIN ANOMALY NEC 08/09/2014 JUSTICE SALCEDO MD Ot V85.36 BODY MASS INDEX 36.0-36.9, ADULT 08/15/2014 JUSTICE SALCEDO MD Ot 244.0 POSTSURGICAL HYPOTHYROID 08/15/2014 JUSTICE SALCEDO MD Ot 255.9 ADRENAL DISORDER N0S 08/15/2014 JUSTICE SALCEDO MD Ot 272.1 PURE HYPERGLYCERIDEMIA 08/15/2014 JUSTICE SALCEDO MD Ot 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 08/15/2014 JUSTICE SALCEDO MD Ot 285.9 ANEMIA NOS 08/15/2014 JUSTICE SALCEDO MD Ot 310.1 PERSONALITY CHANGE DUE TO CONDITIONS CLA 08/15/2014 JUSTICE SALCEDO MD Ot 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 08/15/2014 JUSTICE SALCEDO MD Ot 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 08/15/2014 JUSTICE SALCEDO MD Ot 397.0 TRICUSPID VALVE DISEASE 08/15/2014 JUSTICE SALCEDO MD Ot 401.9 HYPERTENSION NOS 08/15/2014 JUSTICE SALCEDO MD Ot 416.8 CHR PULMON HEART DIS NEC 08/15/2014 JUSTICE SALCEDO MD Ot 425.9 SECOND CARDIOMYOPATH NOS 08/15/2014 JUSTICE SALCEDO MD Ot 427.81 SINOATRIAL NODE DYSFUNCT 08/15/2014 JUSTICE SALCEDO MD Ot 428.0 CONGESTIVE HEART FAILURE NOS 08/15/2014 JUSTICE SALCEDO MD Ot 428.42 CHRONIC SYSTOLIC/DIASTOLIC HRT FAILURE 08/15/2014 JUSTICE SALCEDO MD Ot 493.20 CHRONIC OBSTRUCTIVE ASTHMA, NOS 08/15/2014 JUSTICE SALCEDO MD Ot 518.83 CHRONIC RESPIRATORY FAILURE 08/15/2014 JUSTICE SALCEDO MD Ot 716.90 ARTHROPATHY NOS-UNSPEC 08/15/2014 JUSTICE SALCEDO MD Ot 722.6 DISC DEGENERATION NOS 08/15/2014 JUSTICE SALCEDO MD Ot 742.4 BRAIN ANOMALY NEC 08/15/2014 JUSTICE SALCEDO MD Ot V85.36 BODY MASS INDEX 36.0-36.9, ADULT 07/05/2015 Ot 401.9 07/05/2015 Ot 786.50 07/05/2015 Ot 401.9 07/05/2015 Ot 786.50 07/05/2015 Ot 401.9 07/05/2015 Ot 428.0 07/05/2015 Ot V58.69 07/05/2015 Ot 250.00 07/05/2015 Ot 285.9 07/05/2015 Ot 425.4 07/05/2015 ANY GIPSON FACC, OLGA LIDIA FACAlaina CCDS Ot 425.4 07/05/2015 BAIMA, RACHELLE L CRYSTALLOGRAPHY TEACHER Ot 244.9 07/05/2015 BAIMA RACHELLE L CRYSTALLOGRAPHY TEACHER Ot 401.9 07/05/2015 BAIMA, RACHELLE L CRYSTALLOGRAPHY TEACHER Ot 425.4 07/05/2015 BAIMA, RACHELLE L CRYSTALLOGRAPHY TEACHER Ot 428.30 07/05/2015 PHUC AGUIRRE CRYSTALLOGRAPHY TEACHER Ot V76.12 07/05/2015 ERIK SANTIAGO MD Ot F79 UNSPECIFIED INTELLECTUAL DISABILITIES 07/05/2015 ERIK SANTIAGO MD Ot G40.909 EPILEPSY, UNSP, NOT INTRACTABLE, WITHOUT 07/05/2015 ERIK SANTIAGO MD Ot I10 ESSENTIAL (PRIMARY) HYPERTENSION 07/05/2015 ERIK SANTIAGO MD Ot I27.2 OTHER SECONDARY PULMONARY HYPERTENSION 07/05/2015 ERIK SANTIAGO MD Ot R73.9 HYPERGLYCEMIA, UNSPECIFIED 07/07/2015 YFN ZAMUDIO MD Ot E03.9 HYPOTHYROIDISM, UNSPECIFIED 07/07/2015 YFN ZAMUDIO MD Ot E78.5 HYPERLIPIDEMIA, UNSPECIFIED 07/07/2015 YFN ZAMUDIO MD Ot E86.0 DEHYDRATION 07/07/2015 YFN ZAMUDIO MD Ot F07.0 PERSONALITY CHANGE DUE TO KNOWN PHYSIOLO 07/07/2015 YFN ZAMUDIO MD Ot F71 MODERATE INTELLECTUAL DISABILITIES 07/07/2015 YFN ZAMUDIO MD Ot I10 ESSENTIAL (PRIMARY) HYPERTENSION 07/07/2015 YFN ZAMUDIO MD Ot I27.2 OTHER SECONDARY PULMONARY HYPERTENSION 07/07/2015 YFN ZAMUDIO MD Ot I50.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 07/07/2015 YFN ZAMUDIO MD Ot R73.9 HYPERGLYCEMIA, UNSPECIFIED 09/05/2015 RAHMA RACHELLE L CRYSTALLOGRAPHY TEACHER Ot G47.30 SLEEP APNEA, UNSPECIFIED 09/05/2015 BAIMA RACHELLE L CRYSTALLOGRAPHY TEACHER Ot I10 ESSENTIAL (PRIMARY) HYPERTENSION 09/05/2015 BAIMA RACHELLE L CRYSTALLOGRAPHY TEACHER Ot I42.9 CARDIOMYOPATHY, UNSPECIFIED 09/05/2015 BAIMA, RACHELLE L CRYSTALLOGRAPHY TEACHER Ot I50.30 UNSPECIFIED DIASTOLIC (CONGESTIVE) HEART 09/17/2015 Ot 244.9 HYPOTHYROIDISM NOS 09/17/2015 Ot 272.0 PURE HYPERCHOLESTEROLEM 09/17/2015 Ot 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 09/17/2015 Ot 401.9 HYPERTENSION NOS 09/17/2015 Ot 416.8 CHR PULMON HEART DIS NEC 09/17/2015 Ot 428.0 CONGESTIVE HEART FAILURE NOS 09/17/2015 Ot 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 09/17/2015 Ot 780.93 MEMORY LOSS 09/17/2015 Ot 786.05 SHORTNESS OF BREATH 09/17/2015 Ot V58.69 OTH MED,LT, CURRENT USE 09/24/2015 BAIMA, RACHELLE L CRYSTALLOGRAPHY TEACHER Ot G47.30 SLEEP APNEA, UNSPECIFIED 09/24/2015 BAIMA, RACHELLE L CRYSTALLOGRAPHY TEACHER Ot I10 ESSENTIAL (PRIMARY) HYPERTENSION 09/24/2015 BAIMA RACHELLE L CRYSTALLOGRAPHY TEACHER Ot I42.9 CARDIOMYOPATHY, UNSPECIFIED 09/24/2015 BAIMA, RACHELLE L CRYSTALLOGRAPHY TEACHER Ot I50.30 UNSPECIFIED DIASTOLIC (CONGESTIVE) HEART 03/10/2016 ERIK SANTIAGO MD Ot F79 UNSPECIFIED INTELLECTUAL DISABILITIES 03/10/2016 ERIK SANTIAGO MD Ot G40.909 EPILEPSY, UNSP, NOT INTRACTABLE, WITHOUT 03/10/2016 ERIK SANTIAGO MD Ot I10 ESSENTIAL (PRIMARY) HYPERTENSION 03/10/2016 ERIK SANTIAGO MD Ot I27.2 OTHER SECONDARY PULMONARY HYPERTENSION 03/10/2016 ERIK SANTIAGO MD Ot R73.9 HYPERGLYCEMIA, UNSPECIFIED 06/10/2016 ERIK SANTIAGO MD Ot F79 UNSPECIFIED INTELLECTUAL DISABILITIES 06/10/2016 ERIK SANTIAGO MD Ot G40.909 EPILEPSY, UNSP, NOT INTRACTABLE, WITHOUT 06/10/2016 ERIK SANTIAGO MD Ot I10 ESSENTIAL (PRIMARY) HYPERTENSION 06/10/2016 ERIK SANTIAGO MD Ot I27.2 OTHER SECONDARY PULMONARY HYPERTENSION 06/10/2016 ERIK SANTIAGO MD Ot R73.9 HYPERGLYCEMIA, UNSPECIFIED 08/18/2016 Ot 401.9 HYPERTENSION NOS 08/18/2016 Ot 428.0 CONGESTIVE HEART FAILURE NOS 08/18/2016 Ot V58.69 OTH MED,LT, CURRENT USE 08/18/2016 Ot 250.00 DIAB TIFFANIE WO COMPL, TYPE II OR UNSPEC TY 08/18/2016 Ot 285.9 ANEMIA NOS 08/18/2016 Ot 425.4 PRIM CARDIOMYOPATHY NEC 08/18/2016 ANY GIPSON FACC, OLGA LIDIA FACP CCDS Ot 425.4 PRIM CARDIOMYOPATHY NEC 08/18/2016 AYAN RACHELLE L CRYSTALLOGRAPHY TEACHER Ot 244.9 HYPOTHYROIDISM NOS 08/18/2016 BAIMA, RACHELLE L CRYSTALLOGRAPHY TEACHER Ot 401.9 HYPERTENSION NOS 08/18/2016 BAIMA RACHELLE L CRYSTALLOGRAPHY TEACHER Ot 425.4 PRIM CARDIOMYOPATHY NEC 08/18/2016 RAHMA, RACHELLE L CRYSTALLOGRAPHY TEACHER Ot 428.30 UNSPEC DIASTOLIC HRT FAILURE 08/18/2016 PHUC AGUIRRE CRYSTALLOGRAPHY TEACHER Ot V76.12 OTH SCREEN MAMMO-MALIGN NEOPLASM OF TASHIA 08/18/2016 RACHELLE BOTELLO L CRYSTALLOGRAPHY TEACHER Ot G47.30 SLEEP APNEA, UNSPECIFIED 08/18/2016 AYAN RACHELLE L CRYSTALLOGRAPHY TEACHER Ot I10 ESSENTIAL (PRIMARY) HYPERTENSION 08/18/2016 RACHELLE BOTELLO CRYSTALLOGRAPHY TEACHER Ot I42.9 CARDIOMYOPATHY, UNSPECIFIED 08/18/2016 RACHELLE BOTELLO CRYSTALLOGRAPHY TEACHER Ot I50.30 UNSPECIFIED DIASTOLIC (CONGESTIVE) HEART 08/18/2016 CARLA PHUC CRYSTALLOGRAPHY TEACHER Ot Z12.31 ENCNTR SCREEN MAMMOGRAM FOR MALIGNANT NE 08/18/2016 PHUC AGUIRRE CRYSTALLOGRAPHY TEACHER Ot Z12.31 ENCNTR SCREEN MAMMOGRAM FOR MALIGNANT NE 08/18/2016 PHUC AGUIRRE CRYSTALLOGRAPHY TEACHER Ot Z12.31 ENCNTR SCREEN MAMMOGRAM FOR MALIGNANT NE 09/08/2016 PHUC AGUIRRE CRYSTALLOGRAPHY TEACHER Ot Z12.31 ENCNTR SCREEN MAMMOGRAM FOR MALIGNANT NE 09/22/2016 PHUC AGUIRRE CRYSTALLOGRAPHY TEACHER Ot Z12.31 ENCNTR SCREEN MAMMOGRAM FOR MALIGNANT NE 11/07/2016 ERIK SANTIAGO MD Ot F79 UNSPECIFIED INTELLECTUAL DISABILITIES 11/07/2016 ERIK SANTIAGO MD Ot G40.909 EPILEPSY, UNSP, NOT INTRACTABLE, WITHOUT 11/07/2016 ERIK SANTIAGO MD Ot I10 ESSENTIAL (PRIMARY) HYPERTENSION 11/07/2016 ERIK SANTIAGO MD Ot I27.2 OTHER SECONDARY PULMONARY HYPERTENSION 11/07/2016 ERIK SANTIAGO MD Ot R73.9 HYPERGLYCEMIA, UNSPECIFIED 02/07/2017 ERIK SANTIAGO MD Ot F79 UNSPECIFIED INTELLECTUAL DISABILITIES 02/07/2017 ERIK SANTIAGO MD Ot G40.909 EPILEPSY, UNSP, NOT INTRACTABLE, WITHOUT 02/07/2017 ERIK SANTIAGO MD Ot I10 ESSENTIAL (PRIMARY) HYPERTENSION 02/07/2017 ERIK SANTIAGO MD Ot I27.2 OTHER SECONDARY PULMONARY HYPERTENSION 02/07/2017 ERIK SANTIAGO MD Ot R73.9 HYPERGLYCEMIA, UNSPECIFIED Procedures Code Description Performed By Performed On 79.31 OPEN RED-INT FIX HUMERUS 06/03/2012 Cardiolog Olga Lidia Murdock 07/21/2012 68992 ROUTINE VENIPUNCTURE 01/11/2014 00685 OXIMETRY 01/11/2014 60657 CBC 01/11/2014 4551015 GFR CALC (RESULT ONLY) 01/11/2014 53205 CMP 01/11/2014 62513 TSH 01/11/2014 47375 OXIMETRY 02/27/2014 59700 OXIMETRY 03/08/2014 64892 NEBULIZER TREATMENT 05/05/2014 00819 OXIMETRY 05/05/2014 50113 ROUTINE VENIPUNCTURE 05/30/2014 55700 INFLUENZA A & B (IN-HOUSE) 05/30/2014 79414 XRAY CHEST 2 VIEW 05/30/2014 65847 BNP 05/30/2014 42439 OXIMETRY 05/30/2014 Pulmonary Jamie Kendall 07/10/2014 82342 OXIMETRY 07/12/2014 15407 OXIMETRY 07/12/2014 55421 NEBULIZER TREATMENT 08/02/2014 26929 OXIMETRY 08/02/2014 J7613 ALBUTEROL UNIT DOSE FORM INHALED 08/02/2014 92994 EKG, TRACING (IN-HOUSE) 08/03/2014 Results There is no data. Encounters ACCT No. Visit Date/Time Discharge Status Pt. Type Provider Facility Loc./Unit Complaint [id number] 08/02/2014 11:34:00 08/02/2014 23:59:59 CLS Outpatient PHUC AGUIRRE APRN [id number] 07/16/2014 08:39:00 07/16/2014 23:59:59 CLS Outpatient ELLIS CANAS DO [id number] 05/30/2014 13:46:00 05/30/2014 23:59:59 CLS Outpatient ERICA WARREN APRN [id number] 05/05/2014 10:35:00 05/05/2014 23:59:59 CLS Outpatient ELLIS CANAS DO [id number] 03/08/2014 10:18:00 03/08/2014 23:59:59 CLS Outpatient ELLIS CANAS DO [id number] 02/27/2014 15:11:00 02/27/2014 23:59:59 CLS Outpatient PHUC AGUIRRE APRN [id number] 01/11/2014 10:09:00 01/11/2014 23:59:59 CLS Outpatient PHUC AGUIRRE APRN [id number] 05/18/2013 11:44:00 05/18/2013 23:59:59 CLS Outpatient GIOVANY VELEZ APRN [id number] 07/04/2012 12:33:00 07/04/2012 23:59:59 CLS Outpatient PHUC AGUIRRE APRN [id number] 06/22/2012 12:23:00 06/22/2012 23:59:59 [place] [id number] 12/29/2011 09:52:00 12/29/2011 23:59:59 CLS Outpatient TARYN ANTONY MD [id number] 12/29/2011 09:52:00 12/29/2011 23:59:59 CLS Outpatient TARYN ANTONY MD [id number] 08/18/2016 13:16:00 08/18/2016 23:59:59 CLS Outpatient PHUC AGUIRRE [facility] RAD BREAST CA SCREENING [id number] 08/16/2015 09:53:00 08/16/2015 23:59:59 CLS Outpatient RACHELLE BOTELLO [facility] CARD CARDIOMYOPATHY [id number] 07/07/2015 01:43:00 07/07/2015 16:51:00 DIS Inpatient YFN ZAMUDIO MD [facility] ICU UNCONTROLLED DIABETES; ALTERED LEVEL OF CONCIOUSNE [id number] 07/05/2015 13:10:00 07/05/2015 16:15:00 DIS Outpatient ERIK SANTIAGO MD [facility] ER HYPERTENSION POSS SEIZURE/ DEC LOC [id number] 08/09/2014 09:09:00 08/15/2014 15:15:00 DIS Inpatient JUSTICE SALCEDO MD [facility] 4TH SWB-HYPOVENTILATION SYNDROME CHF COPD [id number] 08/02/2014 14:36:00 08/09/2014 08:53:00 DIS Inpatient JUSTICE SALCEDO MD [facility] 4TH HYPOVENTILATION SYNDROME CHF COPD [id number] 06/17/2014 22:00:00 06/18/2014 14:15:00 DIS Inpatient ELLIS CANAS DO [facility] 4TH COPD EXACERBATION;ACUTE ON CHRONIC RESP FAILURE [id number] 05/04/2014 15:13:00 05/04/2014 18:15:00 DIS Emergency ERIK SANTIAGO MD [facility] ER LETHARGIC HIGH CO2 [id number] 04/15/2014 12:16:00 04/16/2014 18:17:00 DIS Inpatient DENIS GIPSON, MEGHANA Walton [facility] 4TH COPD EXACERBATION, UNRESPONSIVE EPISODES [id number] 01/18/2014 13:27:00 01/18/2014 23:59:59 CLS Outpatient PHUC AGUIRRE CRYSTALLOGRAPHY TEACHER [facility] RAD SCREENING [id number] 10/03/2013 10:50:00 10/03/2013 23:59:59 CLS Outpatient RACHELLE BOTELLO CRYSTALLOGRAPHY TEACHER [facility] CARD CARDIOMYOPATHY [id number] 09/12/2012 12:30:00 09/12/2012 23:59:59 CLS Outpatient ANY GIPSON FACC, OLGA LIDIA COLEMAN CCDS [facility] RAD CARDIOMYOPATHY [id number] 07/09/2017 19:26:00 ACT Emergency TOM GIPSON, SHAWNEE Walton [facility] ER AMS [id number] 07/05/2015 13:10:00 Document Registration [id number] 06/27/2014 07:47:00 Document Registration [id number] 07/18/2012 10:46:00 Document Registration [id number] 06/14/2012 12:10:00 Document Registration [id number] 06/01/2012 23:15:00 Document Registration [id number] 02/14/2012 10:17:00 Document Registration [id number] 02/11/2012 10:10:00 Document Registration [id number] 02/09/2011 12:19:00 Document Registration [id number] 02/06/2011 13:29:00 Document Registration
[2017-07-09 20:05] VITALS: BP 116/65
--- NOTE | 2017-07-09 20:13 | Diagnostic Imaging Report ---
Clinical indication: Patient with shortness of breath. Exam: Portable chest x-ray upright view. Comparison: Portable chest x-ray upright view dated 07/07/2015. Findings: There is cardiomegaly and pulmonary vasculature again seen. There is progression of airspace opacity involving the right lung which may represent atelectasis versus infiltrate. There is stable atelectasis involving the left lung with elevation of the left hemidiaphragm. There is no gross pleural effusion seen. There is no pneumothorax. The remainder of this exam shows no significant interval change compared to the prior study of comparison. Impression: 1: There is cardiomegaly with pulmonary vascular congestion which can be seen with congestive heart failure. 2: There is increased mild airspace opacification and decreased lung volume of the right lung which may represent atelectasis versus infiltrate. 3: There is continued left lung base atelectasis and/or scarring with elevation of the left hemidiaphragm. Dictated by: Dictated on workstation # [id number]
[2017-07-09 20:21] LABS: BASOPHILS % (AUTO) 0 % (0-10); EOSINOPHILS % (AUTO) 0 % (0-10); HEMATOCRIT 34 % (35-52); HEMOGLOBIN 10.6 G/DL (11.5-16.0); LYMPHOCYTES # (AUTO) 1.9 X 10^3 (1.0-4.0); LYMPHOCYTES % (AUTO) 27 % (12-44); MEAN CORPUSCULAR HEMOGLOBIN 31 PG (25-34); MEAN CORPUSCULAR HGB CONC 31 G/DL (32-36); MEAN CORPUSCULAR VOLUME 99 FL (80-99); MEAN PLATELET VOLUME 9.3 FL (7.4-10.4); MONOCYTES # (AUTO) 0.9 X 10^3 (0.0-1.0); MONOCYTES % (AUTO) 12 % (0-12); NEUTROPHILS # (AUTO) 4.4 X 10^3 (1.8-7.8); NEUTROPHILS % (AUTO) 61 % (42-75); PLATELET COUNT 300 10^3/uL (130-400); RED BLOOD COUNT 3.46 10^6/uL (4.35-5.85); RED CELL DISTRIBUTION WIDTH 16.1 % (10.0-14.5); WHITE BLOOD COUNT 7.2 10^3/uL (4.3-11.0)
[2017-07-09 20:34] LABS: PROTHROMBIN TIME PATIENT 13.1 SEC (12.2-14.7)
[2017-07-09 20:42] LABS: ALANINE AMINOTRANSFERASE 17 U/L (0-55); ALBUMIN 3.7 GM/DL (3.2-4.5); ALKALINE PHOSPHATASE 63 U/L (40-136); BILIRUBIN,TOTAL 0.2 MG/DL (0.1-1.0); BUN/CREATININE RATIO 25; CARBON DIOXIDE 32 MMOL/L (21-32); CHLORIDE 102 MMOL/L (98-107); CREATININE SERUM 1.16 MG/DL (0.60-1.30); GFR ESTIMATED 54; GLUCOSE 122 MG/DL (70-105); MAGNESIUM 2.7 MG/DL (1.8-2.4); POTASSIUM 6.2 MMOL/L (3.6-5.0); SODIUM 145 MMOL/L (135-145); TOTAL PROTEIN 7.4 GM/DL (6.4-8.2)
[2017-07-09 21:38] LABS: ABG BASE EXCESS 9.1 MMOL/L (-2.5-2.5); ABG OXYGEN SATURATION 94 % (94-100); ABG PCO2 62 MMHG (35-45); ABG PH 7.36 (7.37-7.43); ABG PO2 58 MMHG (79-93); ABG TCO2 37.4 MMOL/L (21.0-31.0)
[2017-07-09 21:40] LABS: ALLENS TEST YES-POS; INSPIRED O2 30% BIPAP; PATIENT TEMP 94.1; VENTILATOR NO
--- NOTE | 2017-07-09 21:41 | Diagnostic Imaging Report ---
Clinical indication: Patient with central line placement. Exam: Portable chest x-ray upright view. Comparison: Portable chest x-ray upright view dated 07/09/2017 at 0757 hrs. Findings and impression: 1: There is interval placement of a right IJ central line with the tip in the mid atrial region. This catheter should be withdrawn at least 5 cm for it to be in the distal superior vena cava region. 2: There is slight improved aeration of both lungs. 3: The remainder of this exam shows no significant interval change compared to the prior study of comparison. Dictated by: Dictated on workstation # [id number]
[2017-07-09] MEDS ORDERED: RT-ALBUTEROL SULF 2.5 MG/3 ML PRE-MIX VIAL ONE (22:02)
[2017-07-09] MEDS ORDERED: RT-ALBUTEROL SULF 2.5 MG/3 ML PRE-MIX VIAL INH STA (22:03)
[2017-07-09 22:10] VITALS: BP 122/91
--- NOTE | 2017-07-09 22:13 | Diagnostic Imaging Report ---
Clinical indication: Adjustment of central line placement. Exam: Portable chest x-ray upright view. Comparison: Portable chest x-ray upright view dated 07/09/2017 at 0905 hrs. Findings and impression: 1: There is interval slight withdrawal and placement of the right IJ central line with tip now in the cavoatrial junction. 2: The remainder of this exam shows no significant interval change compared to the prior study of comparison. Dictated by: Dictated on workstation # [id number]
[2017-07-09] MEDS ORDERED: methylPREDNISolone 125 MG (Solu-MEDROL) VIAL IVP ONE (22:15)
[2017-07-09] MEDS ORDERED: cefTRIAXone 1 GM (ROCEPHIN) VIAL ONE (22:20)
[2017-07-09] MEDS ORDERED: NS (IVPB) 100 ML ONE (22:20)
--- OUTSIDE RECORDS SUMMARY | 2017-07-09 22:27 | XMS REPORT | Continuity of Care Document ---
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 06/25/2009 CASH CASHERO CLINICAL TRIAL ASSOCIATE, GIOVANY N 244.9 UNSPECIFIED ACQUIRED HYPOTHYROIDISM 06/25/2009 CASH CASHERO CLINICAL TRIAL ASSOCIATE, GIOVANY N 272.4 OTHER AND UNSPECIFIED HYPERLIPIDEMIA 06/25/2009 CASH CASHERO CLINICAL TRIAL ASSOCIATE, GIOVANY N 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 06/25/2009 CARLA CLINICAL TRIAL ASSOCIATE, PHUC S 244.9 UNSPECIFIED ACQUIRED HYPOTHYROIDISM 06/25/2009 CARLA CLINICAL TRIAL ASSOCIATE, PHUC S 272.4 OTHER AND UNSPECIFIED HYPERLIPIDEMIA 06/25/2009 CARLA CLINICAL TRIAL ASSOCIATE, PHUC S 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 06/25/2009 CARLA CLINICAL TRIAL ASSOCIATE, PHUC S 244.9 UNSPECIFIED ACQUIRED HYPOTHYROIDISM 06/25/2009 CARLA CLINICAL TRIAL ASSOCIATE, PHUC S 272.4 OTHER AND UNSPECIFIED HYPERLIPIDEMIA 06/25/2009 CARLA CLINICAL TRIAL ASSOCIATE, PHUC S 275.49 OTHER DISORDERS OF CALCIUM [...] OTHER DISORDERS OF CALCIUM METABOLISM 06/25/2009 WARREN CLINICAL TRIAL ASSOCIATE, ERICA R 244.9 UNSPECIFIED ACQUIRED HYPOTHYROIDISM 06/25/2009 WARREN CLINICAL TRIAL ASSOCIATE, ERICA R 272.4 OTHER AND UNSPECIFIED HYPERLIPIDEMIA 06/25/2009 WARREN CLINICAL TRIAL ASSOCIATE, ERICA R 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 06/25/2009 CANAS DO, ELLIS K 244.9 UNSPECIFIED ACQUIRED HYPOTHYROIDISM 06/25/2009 CANAS DO, ELLIS K 272.4 OTHER AND UNSPECIFIED HYPERLIPIDEMIA 06/25/2009 CANAS DO, ELLIS K 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 06/25/2009 CARLA ALVARADO PHUC S 244.9 UNSPECIFIED ACQUIRED HYPOTHYROIDISM 06/25/2009 CARLA ALVARADO PHUC S 272.4 OTHER AND UNSPECIFIED HYPERLIPIDEMIA 06/25/2009 CARLA CLINICAL TRIAL ASSOCIATE, PHUC S 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 11/26/2009 TARYN ANTONY MD 799.02 HYPOXEMIA 11/26/2009 TARYN ANTONY MD 799.02 HYPOXEMIA 11/26/2009 TARYN ANTONY MD 799.02 HYPOXEMIA 11/26/2009 CARLA ALVARADO PHUC S 799.02 HYPOXEMIA 11/26/2009 GIOVANY VELEZ APRN 799.02 HYPOXEMIA 11/26/2009 CARLA ALVARADO PHUC S 799.02 HYPOXEMIA 11/26/2009 RIZWAN AGUIRRE APRNNDA S 799.02 HYPOXEMIA 11/26/2009 CANAS DO, ELLIS K 799.02 HYPOXEMIA 11/26/2009 CANAS DO, ELLIS [...] 477.9 ALLERGIC RHINITIS CAUSE UNSPECIFIED 09/22/2011 CARLA CLINICAL TRIAL ASSOCIATE, PHUC S 477.9 ALLERGIC RHINITIS CAUSE UNSPECIFIED 09/22/2011 SHAILESH ULRICH CHRISTIANOGIOVANY N 477.9 ALLERGIC RHINITIS CAUSE UNSPECIFIED 09/22/2011 PHUC AGUIRRE APRN S 477.9 ALLERGIC RHINITIS CAUSE UNSPECIFIED 09/22/2011 PHCU AGUIRRE APRN S 477.9 ALLERGIC RHINITIS CAUSE [...] BODY MASS INDEX 30.0-30.9, ADULT 07/04/2012 CARLA CLINICAL TRIAL ASSOCIATE, PHUC S 493.90 ASTHMA UNSPECIFIED 07/04/2012 SHAILESH MILIPHILL CLINICAL TRIAL ASSOCIATEGIOVANY N 493.90 ASTHMA UNSPECIFIED 07/04/2012 RIZWAN AGUIRRE [...] ELLIS K 786.07 WHEEZING 05/18/2013 CANAS DO, ELLSI K 786.07 WHEEZING 05/18/2013 ANIVAL WARREN APRNIA R 786.07 WHEEZING 05/18/2013 MISSAEL ORELLANA, ELLIS K 786.07 WHEEZING 05/18/2013 RIZWAN AGUIRRE APRNNDA S 786.07 WHEEZING 11/20/2013 SHAILESH ULRICH APRN GIOVANY N V76.10 BREAST CANCER SCREENING 11/20/2013 RIZWAN [...] S 781.2 ABNORMALITY OF GAIT 01/11/2014 ELLIS CANAS [...] DO 644.10 FALSE LABOR PAIN 07/26/2014 CARLA CLINICAL TRIAL ASSOCIATE, PHUC S 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 07/26/2014 CARLA BHARDWAJN, PHUC S 644.10 FALSE LABOR PAIN 08/02/2014 CARLA CLINICAL TRIAL ASSOCIATE, PHUC S 427.89 OTHER SPECIFIED CARDIAC DYSRHYTHMIAS 08/02/2014 CARLA CLINICAL TRIAL ASSOCIATE, PHUC S 427.9 ARRHYTHMIA, CARDIAC (SINUS) 08/02/2014 CARLA CLINICAL TRIAL ASSOCIATE, PHUC S 728.87 MUSCLE WEAKNESS (GENERALIZED) 08/02/2014 CARLA CLINICAL TRIAL ASSOCIATE, PHUC S 780.09 ALTERATION OF CONSCIOUSNESS OTHER [...] DENISSE GIPSON JUSTICE N Ot 518.84 08/03/2014 EDNISSE GIPSON JUSTICE N Ot 716.90 08/03/2014 DENISSE [...] DENISSE GIPSON, JUSTICE N Ot 318.0 08/04/2014 DENSISE GIPSON, JUSTICE N Ot 396.3 08/04/2014 DENISSE [...] DENISSE GIPSON, JUSTICE N Ot 272.1 08/05/2014 DENISSE GIPSON, JUSTICE N Ot 275.2 08/05/2014 DENISSE [...] DENISSE GIPSON, JUSTICE N Ot 255.9 08/06/2014 DENISSE GIPSON, JUSTICE N Ot 272.1 08/06/2014 DENISSE [...] DENISSE GIPSON, JUSTICE N Ot 272.1 08/09/2014 DEINSSE GIPSON, JUSTICE N Ot 275.2 08/09/2014 DENISES GIPSON, JUSTICE N Ot 276.50 08/09/2014 DENISSE [...] CCDS Ot 425.4 07/05/2015 BAIMA, RACHELLE L FORGE TENDER Ot 244.9 07/05/2015 BAIMA RACHELLE L FORGE TENDER Ot 401.9 07/05/2015 BAIMA, RACHELLE L FORGE TENDER Ot 425.4 07/05/2015 BAIMA, RACHELLE L FORGE TENDER Ot 428.30 07/05/2015 PHUC AGUIRRE FORGE TENDER Ot V76.12 07/05/2015 ERIK SANTIAGO MD Ot [...] R73.9 HYPERGLYCEMIA, UNSPECIFIED 09/05/2015 RAHMA RACHELLE L FORGE TENDER Ot G47.30 SLEEP APNEA, UNSPECIFIED 09/05/2015 BAIMA RACHELLE L FORGE TENDER Ot I10 ESSENTIAL (PRIMARY) HYPERTENSION 09/05/2015 BAIMA RACHELLE L FORGE TENDER Ot I42.9 CARDIOMYOPATHY, UNSPECIFIED 09/05/2015 BAIMA, RACHELLE L FORGE TENDER Ot I50.30 UNSPECIFIED DIASTOLIC (CONGESTIVE) HEART 09/17/2015 [...] MED,LT, CURRENT USE 09/24/2015 BAIMA, RACHELLE L FORGE TENDER Ot G47.30 SLEEP APNEA, UNSPECIFIED 09/24/2015 BAIMA, RACHELLE L FORGE TENDER Ot I10 ESSENTIAL (PRIMARY) HYPERTENSION 09/24/2015 BAIMA RACHELLE L FORGE TENDER Ot I42.9 CARDIOMYOPATHY, UNSPECIFIED 09/24/2015 BAIMA, RACHELLE L FORGE TENDER Ot I50.30 UNSPECIFIED DIASTOLIC (CONGESTIVE) HEART 03/10/2016 [...] PRIM CARDIOMYOPATHY NEC 08/18/2016 AYAN RACHELLE L FORGE TENDER Ot 244.9 HYPOTHYROIDISM NOS 08/18/2016 BAIMA, RACHELLE L FORGE TENDER Ot 401.9 HYPERTENSION NOS 08/18/2016 BAIMA RACHELLE L FORGE TENDER Ot 425.4 PRIM CARDIOMYOPATHY NEC 08/18/2016 RAHMA, RACHELLE L FORGE TENDER Ot 428.30 UNSPEC DIASTOLIC HRT FAILURE 08/18/2016 PHUC AGUIRRE FORGE TENDER Ot V76.12 OTH SCREEN MAMMO-MALIGN NEOPLASM OF TASHIA 08/18/2016 RACHELLE BOTELLO L FORGE TENDER Ot G47.30 SLEEP APNEA, UNSPECIFIED 08/18/2016 AYAN RACHELLE L FORGE TENDER Ot I10 ESSENTIAL (PRIMARY) HYPERTENSION 08/18/2016 RACHELLE BOTELLO FORGE TENDER Ot I42.9 CARDIOMYOPATHY, UNSPECIFIED 08/18/2016 RACHELLE BOTELLO FORGE TENDER Ot I50.30 UNSPECIFIED DIASTOLIC (CONGESTIVE) HEART 08/18/2016 CARLA PHUC FORGE TENDER Ot Z12.31 ENCNTR SCREEN MAMMOGRAM FOR MALIGNANT NE 08/18/2016 PHUC AGUIRRE FORGE TENDER Ot Z12.31 ENCNTR SCREEN MAMMOGRAM FOR MALIGNANT NE 08/18/2016 PHUC AGUIRRE FORGE TENDER Ot Z12.31 ENCNTR SCREEN MAMMOGRAM FOR MALIGNANT NE 09/08/2016 PHUC AGUIRRE FORGE TENDER Ot Z12.31 ENCNTR SCREEN MAMMOGRAM FOR MALIGNANT NE 09/22/2016 PHUC AGUIRRE FORGE TENDER Ot Z12.31 ENCNTR SCREEN MAMMOGRAM FOR MALIGNANT [...] 79.31 OPEN RED-INT FIX HUMERUS 06/03/2012 Cardiolog Ogla Lidia Murdock 07/21/2012 09959 ROUTINE VENIPUNCTURE 01/11/2014 63577 OXIMETRY 01/11/2014 52177 CBC 01/11/2014 [id number] GFR CALC (RESULT ONLY) 01/11/2014 31761 CMP 01/11/2014 54914 TSH 01/11/2014 04957 OXIMETRY 02/27/2014 25759 OXIMETRY 03/08/2014 28525 NEBULIZER TREATMENT 05/05/2014 03150 OXIMETRY 05/05/2014 36706 ROUTINE VENIPUNCTURE 05/30/2014 22637 INFLUENZA A & B (IN-HOUSE) 05/30/2014 16067 XRAY CHEST 2 VIEW 05/30/2014 61173 BNP 05/30/2014 15677 OXIMETRY 05/30/2014 Pulmonary Jamie Kendall 07/10/2014 05818 OXIMETRY 07/12/2014 60907 OXIMETRY 07/12/2014 49001 NEBULIZER TREATMENT 08/02/2014 40073 OXIMETRY 08/02/2014 J7613 ALBUTEROL UNIT DOSE FORM INHALED 08/02/2014 72258 EKG, TRACING (IN-HOUSE) 08/03/2014 Results Test Result Range Arterial blood gas measurement - 07/09/17 19:45 Blood pCO2 104 mm[Hg] 35-45 Blood pO2 277 mm[Hg] 79-93 Arterial blood bicarbonate measurement (moles/volume) 38 mmol/L 23-27 Arterial blood base excess by calculation 9.0 mmol/L -2.5 -2.5 Arterial blood oxygen saturation measurement 100 % 94- 100 * Inhaled oxygen flow rate 6 L NRG Arterial blood pH measurement with patient temperature correction 7.17 7.37-7.43 Arterial blood carbon dioxide, total measurement (moles/volume) 41.2 mmol/L 21.0-31.0 Body site RIGHT RADIAL NRG Assessment of wrist artery patency prior to arterial puncture POSITIVE NRG Setting of ventilation mode NO NRG Measurement of body temperature 95.2 NRG Complete blood count (CBC) with automated white blood cell (WBC) differential - 07/09/17 20:08 Blood leukocytes automated count (number/volume) 7.2 10*3/uL 4.3-11.0 Blood erythrocytes automated count (number/volume) 3.46 10*6/uL 4.35-5.85 Venous blood hemoglobin measurement (mass/volume) 10.6 g/dL 11.5-16.0 Blood hematocrit (volume fraction) 34 % 35-52 Automated erythrocyte mean corpuscular volume 99 [foz_us] 80-99 Automated erythrocyte mean corpuscular hemoglobin (mass per erythrocyte) 31 pg 25-34 Automated erythrocyte mean corpuscular hemoglobin concentration measurement ( mass/volume) 31 g/dL 32-36 Automated erythrocyte distribution width ratio 16.1 % 10.0-14.5 Automated blood platelet count (count/volume) 300 10*3/uL 130-400 Automated blood platelet mean volume measurement 9.3 [foz_us] 7.4-10.4 Automated blood neutrophils/100 leukocytes 61 % 42-75 Automated blood lymphocytes/100 leukocytes 27 % 12-44 Blood monocytes/100 leukocytes 12 % 0-12 Automated blood eosinophils/100 leukocytes 0 % 0-10 Automated blood basophils/100 leukocytes 0 % 0-10 Blood neutrophils automated count (number/volume) 4.4 10*3 1.8-7.8 Blood lymphocytes automated count (number/volume) 1.9 10*3 1.0-4.0 Blood monocytes automated count (number/volume) 0.9 10*3 0.0-1.0 Automated eosinophil count 0.0 10*3/uL 0.0-0.3 Automated blood basophil count (count/volume) 0.0 10*3/uL 0.0-0.1 PT panel in platelet poor plasma by coagulation assay - 07/09/17 20:08 Prothrombin time (PT) in platelet poor plasma by coagulation assay 13.1 s 12.2-14.7 INR in platelet poor plasma or blood by coagulation assay 1.0 0.8-1.4 Activated partial thromboplastin time (aPTT) in platelet poor plasma bycoagulation assay - 07/09/17 20:08 Activated partial thromboplastin time (aPTT) in platelet poor plasma bycoagulation assay 22 s 24-35 Comprehensive metabolic panel - 07/09/17 20:08 Serum or plasma sodium measurement (moles/volume) 145 mmol/L 135-145 Serum or plasma potassium measurement (moles/volume) 6.2 mmol/L 3.6-5.0 Serum or plasma chloride measurement (moles/volume) 102 mmol/L 98-107 Carbon dioxide 32 mmol/L 21-32 Serum or plasma anion gap determination (moles/volume) 11 mmol/L 5-14 Serum or plasma urea nitrogen measurement (mass/volume) 29 mg/dL 7-18 Serum or plasma creatinine measurement (mass/volume) 1.16 mg/dL 0.60-1.30 Serum or plasma urea nitrogen/creatinine mass ratio 25 NRG Serum or plasma creatinine measurement with calculation of estimated glomerular filtration rate 54 NRG Serum or plasma glucose measurement (mass/volume) 122 mg/dL 70-105 Serum or plasma calcium measurement (mass/volume) 9.0 mg/dL 8.5-10.1 Serum or plasma total bilirubin measurement (mass/volume) 0.2 mg/dL 0.1-1.0 Serum or plasma alkaline phosphatase measurement (enzymatic activity/volume) 63 U/L 40-136 Serum or plasma aspartate aminotransferase measurement (enzymatic activity/ volume) 12 U/L 5-34 Serum or plasma alanine aminotransferase measurement (enzymatic activity/volume ) 17 U/L 0-55 Serum or plasma protein measurement (mass/volume) 7.4 g/dL 6.4-8.2 Serum or plasma albumin measurement (mass/volume) 3.7 g/dL 3.2-4.5 Serum or plasma phosphate measurement (mass/volume) - 07/09/17 20:08 Serum or plasma phosphate measurement (mass/volume) 5.0 mg/dL 2.3-4.7 Magnesium - 07/09/17 20:08 Magnesium 2.7 mg/dL 1.8-2.4 Serum or plasma troponin i.cardiac measurement (mass/volume) - 07/09/17 20:08 Serum or plasma troponin i.cardiac measurement (mass/volume) < ng/ mL <0.30 Blood lactic acid measurement (moles/volume) - 07/09/17 20:08 Blood lactic acid measurement (moles/volume) 2.68 mmol/L 0.50-2.00 Serum or plasma lithium measurement (moles/volume) - 07/09/17 20:08 BNP level 249.7 pg/mL <100.0 Serum or plasma C reactive protein measurement (mass/volume) - 07/09/17 20:08 Serum or plasma C reactive protein measurement (mass/volume) 0.55 mg /dL 0.00-0.50 Arterial blood gas measurement - 07/09/17 21:17 Blood pCO2 62 mm[Hg] 35-45 Blood pO2 58 mm[Hg] 79-93 Arterial blood bicarbonate measurement (moles/volume) 35 mmol/L 23-27 Arterial blood base excess by calculation 9.1 mmol/L -2.5 -2.5 Arterial blood oxygen saturation measurement 94 % 94-100 * Inhaled oxygen flow rate 30% BIPAP NRG Arterial blood pH measurement with patient temperature correction 7.36 7.37-7.43 Arterial blood carbon dioxide, total measurement (moles/volume) 37.4 mmol/L 21.0-31.0 Body site R RAD NRG Assessment of wrist artery patency prior to arterial puncture YES- POS NRG Setting of ventilation mode NO NRG Measurement of body temperature 94.1 NRG Encounters ACCT No. Visit Date/Time Discharge Status Pt. Type Provider Facility Loc./Unit Complaint [id number] 08/02/2014 11:34:00 08/02/2014 23:59:59 CLS Outpatient PHUC AGUIRRE APRN [id number] 07/16/2014 08:39:00 07/16/2014 23:59:59 CLS Outpatient ELLIS CANAS DO [id number] 05/30/2014 13:46:00 05/30/2014 23:59:59 CLS Outpatient ERICA WARREN APRN [id number] 05/05/2014 10:35:00 05/05/2014 23:59:59 CLS Outpatient ELLIS CANAS DO [id number] 03/08/2014 10:18:00 03/08/2014 23:59:59 CLS Outpatient ELLIS CANAS DO [id number] 02/27/2014 15:11:00 02/27/2014 23:59:59 CLS Outpatient PHUC AGUIRRE APRN [id number] 01/11/2014 10:09:00 01/11/2014 23:59:59 CLS Outpatient PHUC AGUIRRE APRN [id number] 05/18/2013 11:44:00 05/18/2013 23:59:59 CLS Outpatient GIOVANY VELEZ APRN [id number] 07/04/2012 12:33:00 07/04/2012 23:59:59 CLS Outpatient PHUC AGUIRRE APRN [id number] 06/22/2012 12:23:00 06/22/2012 23:59:59 [place] [id number] 12/29/2011 09:52:00 12/29/2011 23:59:59 CLS Outpatient TARYN ANTONY MD [id number] 12/29/2011 09:52:00 12/29/2011 23:59:59 CLS Outpatient TARYN ANTONY MD [id number] 08/18/2016 13:16:00 08/18/2016 23:59:59 CLS Outpatient PHUC AGUIRRE [facility] RAD BREAST CA SCREENING [id number] 08/16/2015 09:53:00 08/16/2015 23:59:59 CLS Outpatient RACHELLE BOTELLO [facility] CARD CARDIOMYOPATHY [id number] 07/07/2015 01:43:00 07/07/2015 16:51:00 DIS Inpatient YFN ZAMUDIO MD [facility] ICU UNCONTROLLED DIABETES; ALTERED LEVEL OF CONCIOUSNE [id number] 07/05/2015 13:10:00 07/05/2015 16:15:00 DIS Outpatient ERIK SANTIAGO MD [facility] ER HYPERTENSION POSS SEIZURE/ DEC LOC [id number] 08/09/2014 09:09:00 08/15/2014 15:15:00 DIS Inpatient JUSTICE SALCEDO MD [facility] 4TH SWB-HYPOVENTILATION SYNDROME CHF COPD [id number] 08/02/2014 14:36:00 08/09/2014 08:53:00 DIS Inpatient JUSTICE SALCEDO MD [facility] 4TH HYPOVENTILATION SYNDROME CHF COPD [id number] 06/17/2014 22:00:00 06/18/2014 14:15:00 DIS Inpatient ELLIS CANAS DO [facility] 4TH COPD EXACERBATION;ACUTE ON CHRONIC RESP FAILURE [id number] 05/04/2014 15:13:00 05/04/2014 18:15:00 DIS Emergency ERIK SANTIAGO MD [facility] ER LETHARGIC HIGH CO2 [id number] 04/15/2014 12:16:00 04/16/2014 18:17:00 DIS Inpatient MEGHANA BARRIOS MD [facility] 4TH COPD EXACERBATION, UNRESPONSIVE EPISODES [id number] 01/18/2014 13:27:00 01/18/2014 23:59:59 CLS Outpatient PHUC AGUIRRE [facility] RAD SCREENING [id number] 10/03/2013 10:50:00 10/03/2013 23:59:59 CLS Outpatient RACHELLE BOTELLO [facility] CARD CARDIOMYOPATHY [id number] 09/12/2012 12:30:00 09/12/2012 23:59:59 CLS Outpatient ANY GIPSON FACC, OLGA LIDIA COLEMAN CCDS [facility] RAD CARDIOMYOPATHY [id number] 07/09/2017 22:19:00 ACT Inpatient DENISSE GIPSON, JUSTICE Leavitt [facility] ICU COPD EXAC;RESP FAILURE,HYPOCAPNIA,HYPOXIA; SEVERE - [id number] 07/05/2015 13:10:00 Document Registration [id number] 06/27/2014 07:47:00 Document Registration [id number] 07/18/2012 10:46:00 Document Registration [id number] 06/14/2012 12:10:00 Document Registration [id number] 06/01/2012 23:15:00 Document Registration [id number] 02/14/2012 10:17:00 Document Registration [id number] 02/11/2012 10:10:00 Document Registration [id number] 02/09/2011 12:19:00 Document Registration [id number] 02/06/2011 13:29:00 Document Registration
[2017-07-09] MEDS: NOREPINEPHRINE 4 MG in NS (IVPB) 250 ML IV SCH (23:13)
[2017-07-09] MEDS: NS IV 1000 ML 1,000 ML IV SCH (23:13)
[2017-07-09 23:15] VITALS: BP 107/80
[2017-07-09] MEDS ORDERED: NS IV SCH ×2 (23:15)
[2017-07-09] MEDS ORDERED: ONDANSETRON 4 MG/2 ML (SDV) Z0FRAN IV PRN (23:15)
[2017-07-09] MEDS ORDERED: CEFEPIME IV SCH ×2 (23:15)
[2017-07-09] MEDS ORDERED: ACETAMINOPHEN 500 MG TAB (TYLENOL) PO PRN (23:15)
[2017-07-09] MEDS ORDERED: NS IV PRN (23:15)
[2017-07-09 23:30] VITALS: BP 130/66
[2017-07-09 23:45] VITALS: BP 136/60
[2017-07-09] MEDS ORDERED: VANCOMYCIN 1 GM/NS 250 ML IVPB IV SCH ×2 (23:45)
[2017-07-09] MEDS: 1/2 NS IV SOLUTION 1,000 ML IV SCH (23:52)
[2017-07-10] VITALS (28 sets, daily range): BP systolic 104–194; BP diastolic 38–94
[2017-07-10 00:25] LABS: BILIRUBIN,URINE NEGATIVE (NEGATIVE); CLARITY,URINE CLEAR; COLOR,URINE YELLOW; GLUCOSE, URINE (UA) NEGATIVE (NEGATIVE); KETONES,URINE NEGATIVE (NEGATIVE); LEUKOCYTE ESTERASE ,URINE NEGATIVE (NEGATIVE); NITRITE,URINE NEGATIVE (NEGATIVE); PH,URINE 5 (5-9); PROTEIN,URINE 2+ (NEGATIVE); UROBILINOGEN,URINE NORMAL (NORMAL)
[2017-07-10 00:35] LABS: BACTERIA,URINE TRACE /HPF
[2017-07-10 00:36] LABS: AMORPHOUS SEDIMENT,UR FEW AMOR URATES /LPF
[2017-07-10] MEDS: NS IV 1000 ML 1,000 ML IV SCH ×6 (03:13→22:33)
[2017-07-10 03:58] LABS: BASOPHILS % (AUTO) 0 % (0-10); EOSINOPHILS % (AUTO) 0 % (0-10); HEMATOCRIT 32 % (35-52); HEMOGLOBIN 9.8 G/DL (11.5-16.0); LYMPHOCYTES # (AUTO) 1.1 X 10^3 (1.0-4.0); LYMPHOCYTES % (AUTO) 12 % (12-44); MEAN CORPUSCULAR HEMOGLOBIN 30 PG (25-34); MEAN CORPUSCULAR HGB CONC 31 G/DL (32-36); MEAN CORPUSCULAR VOLUME 99 FL (80-99); MEAN PLATELET VOLUME 9.4 FL (7.4-10.4); MONOCYTES # (AUTO) 0.4 X 10^3 (0.0-1.0); MONOCYTES % (AUTO) 5 % (0-12); NEUTROPHILS # (AUTO) 7.4 X 10^3 (1.8-7.8); NEUTROPHILS % (AUTO) 83 % (42-75); PLATELET COUNT 268 10^3/uL (130-400); RED BLOOD COUNT 3.22 10^6/uL (4.35-5.85); RED CELL DISTRIBUTION WIDTH 15.9 % (10.0-14.5); WHITE BLOOD COUNT 8.9 10^3/uL (4.3-11.0)
[2017-07-10 04:17] LABS: ALANINE AMINOTRANSFERASE 58 U/L (0-55); ALBUMIN 3.4 GM/DL (3.2-4.5); ALKALINE PHOSPHATASE 57 U/L (40-136); BILIRUBIN,TOTAL 0.2 MG/DL (0.1-1.0); BUN/CREATININE RATIO 28; CALCIUM 8.5 MG/DL (8.5-10.1); CARBON DIOXIDE 32 MMOL/L (21-32); CHLORIDE 103 MMOL/L (98-107); CREATININE SERUM 0.98 MG/DL (0.60-1.30); GFR ESTIMATED > 60; GLUCOSE 147 MG/DL (70-105); MAGNESIUM 2.5 MG/DL (1.8-2.4); PHOSPHORUS 3.8 MG/DL (2.3-4.7); POTASSIUM 6.3 MMOL/L (3.6-5.0); SODIUM 142 MMOL/L (135-145); TOTAL PROTEIN 6.8 GM/DL (6.4-8.2)
[2017-07-10 04:22] LABS: ABG BASE EXCESS 4.1 MMOL/L (-2.5-2.5); ABG OXYGEN SATURATION 99 % (94-100); ABG PCO2 66 MMHG (35-45); ABG PO2 123 MMHG (79-93); ABG TCO2 32.9 MMOL/L (21.0-31.0)
[2017-07-10 04:23] LABS: ALLENS TEST YES-POS; INSPIRED O2 35%; PATIENT TEMP 96.1; VENTILATOR NO
[2017-07-10 04:28] LABS: ABG PH 7.28 (7.37-7.43)
[2017-07-10] MEDS ORDERED: PANTOPRAZOLE 40 MG/10 ML (PROTONIX) VIAL IV ONE (06:00)
[2017-07-10] MEDS ORDERED: RT-ALBUTEROL/IPRATROPIUM 3 ML (DUONEB) VIAL INH PRN (06:00)
[2017-07-10] MEDS ORDERED: NS IV SCH ×2 (06:00)
[2017-07-10] MEDS ORDERED: FUROSEMIDE 40 MG/4 ML INJ (LASIX) IVP ONE (06:00)
[2017-07-10] MEDS ORDERED: CEFEPIME IV SCH ×2 (06:00)
[2017-07-10] MEDS: 1/2 NS IV SOLUTION 1,000 ML IV SCH ×3 (06:17→18:27)
[2017-07-10] MEDS: methylPREDNISolone 125 MG (Solu-MEDROL) VIAL IV SCH ×2 (06:17→15:23)
[2017-07-10] MEDS: RT-ALBUTEROL/IPRATROPIUM 3 ML (DUONEB) VIAL INH SCH ×5 (07:24→22:21)
[2017-07-10] MEDS ORDERED: VANCOMYCIN INJECTION 750 MG in NS (IVPB) 250 ML IV SCH (10:00)
[2017-07-10] MEDS: VANCOMYCIN INJECTION 750 MG in NS (IVPB) 250 ML IV SCH ×2 (10:02→21:48)
--- NOTE | 2017-07-10 11:22 | Diagnostic Imaging Report ---
Portable chest is compared to prior study from 07/09/2017. INDICATION: Respiratory failure. FINDINGS: Right internal jugular line is unchanged. Lung volumes remain low. There are progressive interstitial and alveolar opacities demonstrated within the right lung. Given asymmetry, pneumonia would be a consideration though this may reflect some asymmetrical pulmonary edema. No large effusion is evident. There is no evidence for pneumothorax. IMPRESSION: Progressive interstitial and alveolar opacity predominantly within the right lung. Given asymmetry, a pneumonia and infiltrate could be a consideration though this may still reflect some asymmetric pulmonary edema. Dictated by: Dictated on workstation # [id number]
[2017-07-10] MEDS: NOREPINEPHRINE 4 MG in NS (IVPB) 250 ML IV SCH ×2 (12:46→23:47)
--- NOTE | 2017-07-10 14:44 | History & Physicial (CHS) ---
HPI History of Present Illness: 82yo woman with a history of mental retardation was found unresponsive by jail staff, questionably between 3 and 6pm. Patient is non-verbal and unable to contribute history. Per chart review, she has a history of CHF as well as COPD. Her last a1c was 5.3, showing DMT2 under good control. Exam Limitations: clinical condition, physical impairment Date seen by provider: Jul 10, 2017 Time Seen by Provider: 09:00 Attending Physician Candy Brewster MD PCP Dominguez Echevarria MD Consult Date of Admission Jul 09, 2017 at 10:19 pm Home Medications Home Medications Reviewed patient Home Medication Reconciliation Form Allergies Coded Allergies: Phenothiazines (Verified Allergy, Unknown, 04/14/14) Trifluoperazine HCl (Verified Allergy, Unknown, 04/14/14) tuberculin, purified protein deriva (Verified Allergy, Unknown, 04/14/14) [id number] Hx Patient Social History Alcohol Use: Denies Use Recreational Drug Use: No Smoking Status: Never a Smoker Recent Foreign Travel: No Contact w/other who traveled: No Recent Hopitalizations: No Recent Infectious Disease Expo: No Physical Abuse Screen: No Sexual Abuse: No Immunizations Up To Date Tetanus Booster (TDap): Unknown Date of Pneumonia Vaccine: Feb 08, 2012 Date of Influenza Vaccine: Feb 07, 2014 Past Medical History Past Medical History 1. Moderate Mental Retardation- Living at [facility] 2. Hypothyroidism 3. Hypertension 4. Hyperlipidemia 5. Congestive Heart Failure- chronic non-ischemic diastolic dysfunction EF 50% 6. Pulmonary Hypertension- 50mmHg 7. Organic Personality Syndrome 8. 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 10. Obesity Hypoventilation Syndrome/Pickwickian syndrome- with hypercarbia Vent to Mask 04/14 with 1L bleed in at 8 back up at home Past Surgical History 1. Appendectomy 2. Hysterectomy 3. Lt. Humerus fracture with repair 2012 4. Cataract surgery 5. Subtotal Thyroidectomy Family Medical History Family History: Patient reports no known family medical history. Review of Systems (CHC) Constitutional: no symptoms reported All Other Systems Reviewed Negative Unless Noted: Yes (Negative excepted noted.) Reviewed Test Results Reviewed Test Results Lab Laboratory Tests Test 07/09/17 19:45 07/09/17 20:08 07/09/17 21:17 07/09/17 22:10 Range/Units Blood Gas Puncture Site RIGHT RADIAL R RAD Blood Gas Patient Temperature 95.2 94.1 Arterial Blood pH 7.17 *L 7.36 L 7.37-7.43 Arterial Blood Partial Pressure CO2 104 *H 62 H 35-45 MMHG Arterial Blood Partial Pressure O2 277 H 58 L 79-93 MMHG Arterial Blood HCO3 38 H 35 H 23-27 MMOL/L Arterial Blood Total CO2 41.2 H 37.4 H 21.0-31.0 MMOL/L Arterial Blood Oxygen Saturation 100 94 94-100 % Arterial Blood Base Excess 9.0 H 9.1 H -2.5-2.5 MMOL/L Juan Test POSITIVE YES-POS Blood Gas Ventilator Setting NO NO Blood Gas Inspired Oxygen 6 L 30% BIPAP White Blood Count 7.2 4.3-11.0 10^3/uL Red Blood Count 3.46 L 4.35-5.85 10^6/uL Hemoglobin 10.6 L 11.5-16.0 G/DL Hematocrit 34 L 35-52 % Mean Corpuscular Volume 99 80-99 FL Mean Corpuscular Hemoglobin 31 25-34 PG Mean Corpuscular Hemoglobin Concent 31 L 32-36 G/DL Red Cell Distribution Width 16.1 H 10.0-14.5 % Platelet Count 300 130-400 10^3/uL Mean Platelet Volume 9.3 7.4-10.4 FL Neutrophils (%) (Auto) 61 42-75 % Lymphocytes (%) (Auto) 27 12-44 % Monocytes (%) (Auto) 12 0-12 % Eosinophils (%) (Auto) 0 0-10 % Basophils (%) (Auto) 0 0-10 % Neutrophils # (Auto) 4.4 1.8-7.8 X 10^3 Lymphocytes # (Auto) 1.9 1.0-4.0 X 10^3 Monocytes # (Auto) 0.9 0.0-1.0 X 10^3 Eosinophils # (Auto) 0.0 0.0-0.3 10^3/uL Basophils # (Auto) 0.0 0.0-0.1 10^3/uL Prothrombin Time 13.1 12.2-14.7 SEC INR Comment 1.0 0.8-1.4 Activated Partial Thromboplast Time 22 L 24-35 SEC Sodium Level 145 135-145 MMOL/L Potassium Level 6.2 H 6.1 H 3.6-5.0 MMOL/L Chloride Level 102 98-107 MMOL/L Carbon Dioxide Level 32 21-32 MMOL/L Anion Gap 11 5-14 MMOL/L Blood Urea Nitrogen 29 H 7-18 MG/DL Creatinine 1.16 0.60-1.30 MG/DL Estimat Glomerular Filtration Rate 54 BUN/Creatinine Ratio 25 Glucose Level 122 H 70-105 MG/DL Lactic Acid Level 2.68 *H 4.32 *H 0.50-2.00 MMOL/L Calcium Level 9.0 8.5-10.1 MG/DL Phosphorus Level 5.0 H 2.3-4.7 MG/DL Magnesium Level 2.7 H 1.8-2.4 MG/DL Total Bilirubin 0.2 0.1-1.0 MG/DL Aspartate Amino Transf (AST/SGOT) 12 5-34 U/L Alanine Aminotransferase (ALT/SGPT) 17 0-55 U/L Alkaline Phosphatase 63 40-136 U/L Troponin I < 0.30 <0.30 NG/ML C-Reactive Protein High Sensitivity 0.55 H 0.00-0.50 MG/DL B-Type Natriuretic Peptide 249.7 H <100.0 PG/ML Total Protein 7.4 6.4-8.2 GM/DL Albumin 3.7 3.2-4.5 GM/DL Test 07/10/17 00:13 07/10/17 03:32 07/10/17 04:07 07/10/17 06:15 Range/Units Urine Color YELLOW Urine Clarity CLEAR Urine pH 5 5-9 Urine Specific [place] 1.015 L 1.016-1.022 Urine Protein 2+ H NEGATIVE Urine Glucose (UA) NEGATIVE NEGATIVE Urine Ketones NEGATIVE NEGATIVE Urine Nitrite NEGATIVE NEGATIVE Urine Bilirubin NEGATIVE NEGATIVE Urine Urobilinogen NORMAL NORMAL MG/DL Urine Leukocyte Esterase NEGATIVE NEGATIVE Urine RBC (Auto) NEGATIVE NEGATIVE Urine RBC NONE /HPF Urine WBC NONE /HPF Urine Squamous Epithelial Cells NONE /HPF Urine Crystals PRESENT H /LPF Urine Amorphous Sediment FEW ANDREA URATES H /LPF Urine Bacteria TRACE /HPF Urine Casts PRESENT /LPF Urine Hyaline Casts 2-5 H /LPF Urine Mucus MODERATE H /LPF Urine Culture Indicated NO White Blood Count 8.9 4.3-11.0 10^3/uL Red Blood Count 3.22 L 4.35-5.85 10^6/uL Hemoglobin 9.8 L 11.5-16.0 G/DL Hematocrit 32 L 35-52 % Mean Corpuscular Volume 99 80-99 FL Mean Corpuscular Hemoglobin 30 25-34 PG Mean Corpuscular Hemoglobin Concent 31 L 32-36 G/DL Red Cell Distribution Width 15.9 H 10.0-14.5 % Platelet Count 268 130-400 10^3/uL Mean Platelet Volume 9.4 7.4-10.4 FL Neutrophils (%) (Auto) 83 H 42-75 % Lymphocytes (%) (Auto) 12 12-44 % Monocytes (%) (Auto) 5 0-12 % Eosinophils (%) (Auto) 0 0-10 % Basophils (%) (Auto) 0 0-10 % Neutrophils # (Auto) 7.4 1.8-7.8 X 10^3 Lymphocytes # (Auto) 1.1 1.0-4.0 X 10^3 Monocytes # (Auto) 0.4 0.0-1.0 X 10^3 Eosinophils # (Auto) 0.0 0.0-0.3 10^3/uL Basophils # (Auto) 0.0 0.0-0.1 10^3/uL Sodium Level 142 135-145 MMOL/L Potassium Level 6.3 H 3.6-5.0 MMOL/L Chloride Level 103 98-107 MMOL/L Carbon Dioxide Level 32 21-32 MMOL/L Anion Gap 7 5-14 MMOL/L Blood Urea Nitrogen 27 H 7-18 MG/DL Creatinine 0.98 0.60-1.30 MG/DL Estimat Glomerular Filtration Rate > 60 BUN/Creatinine Ratio 28 Glucose Level 147 H 70-105 MG/DL Lactic Acid Level 4.03 *H 4.02 *H 0.50-2.00 MMOL/L Calcium Level 8.5 8.5-10.1 MG/DL Phosphorus Level 3.8 2.3-4.7 MG/DL Magnesium Level 2.5 H 1.8-2.4 MG/DL Total Bilirubin 0.2 0.1-1.0 MG/DL Aspartate Amino Transf (AST/SGOT) 54 H 5-34 U/L Alanine Aminotransferase (ALT/SGPT) 58 H 0-55 U/L Alkaline Phosphatase 57 40-136 U/L Troponin I < 0.30 <0.30 NG/ML B-Type Natriuretic Peptide 109.5 H <100.0 PG/ML Total Protein 6.8 6.4-8.2 GM/DL Albumin 3.4 3.2-4.5 GM/DL Group A Streptococcus Screen NEGATIVE NEGATIVE Blood Gas Puncture Site R RAD Blood Gas Patient Temperature 96.1 Arterial Blood pH 7.28 *L 7.37-7.43 Arterial Blood Partial Pressure CO2 66 H 35-45 MMHG Arterial Blood Partial Pressure O2 123 H 79-93 MMHG Arterial Blood HCO3 31 H 23-27 MMOL/L Arterial Blood Total CO2 32.9 H 21.0-31.0 MMOL/L Arterial Blood Oxygen Saturation 99 94-100 % Arterial Blood Base Excess 4.1 H -2.5-2.5 MMOL/L Juan Test YES-POS Blood Gas Ventilator Setting NO Blood Gas Inspired Oxygen 35% Test 07/10/17 08:00 07/10/17 12:28 Range/Units Potassium Level 6.1 H 5.9 H 3.6-5.0 MMOL/L Lactic Acid Level 3.97 *H 3.98 *H 0.50-2.00 MMOL/L Physical Exam-(CHC) Physical Exam Vital Signs VS - Last 72 Hours, by Label 07/09/17 07/09/17 07/09/17 07/09/17 19:40 20:05 22:10 23:00 Pulse 80 83 Resp 24 17 Pulse Ox 100 100 97 O2 Delivery Simple Mask NIV Bilevel O2 Flow Rate 6.00 30.00 50.00 FiO2 50 07/09/17 07/09/17 07/09/17 07/10/17 23:15 23:30 23:45 00:00 Pulse 81 73 74 74 Resp 17 12 17 12 B/P (MAP) 107/80 (89) 130/66 (87) 136/60 (85) 125/55 (78) Pulse Ox 100 100 100 100 O2 Delivery NIV Bilevel NIV Bilevel NIV Bilevel NIV Bilevel O2 Flow Rate 50.00 50.00 50.00 50.00 07/10/17 07/10/17 07/10/17 07/10/17 00:00 00:40 01:00 01:00 Temp 96.7 Pulse 80 76 76 80 Resp 20 17 10 B/P (MAP) 139/63 (88) 104/46 (65) Pulse Ox 100 100 100 O2 Delivery NIV Bilevel NIV Bilevel O2 Flow Rate 50.00 50.00 50.00 07/10/17 07/10/17 07/10/17 07/10/17 02:00 03:00 03:05 04:00 Pulse 67 70 65 78 Resp 10 10 15 18 B/P (MAP) 115/52 (73) 158/94 (115) Pulse Ox 100 100 100 94 O2 Delivery NIV Bilevel NIV Bilevel NIV Bilevel O2 Flow Rate 50.00 50.00 35.00 35.00 07/10/17 07/10/17 07/10/17 07/10/17 04:00 04:00 04:10 05:00 Temp 96.2 Pulse 77 75 Resp 21 10 B/P (MAP) 194/84 (120) Pulse Ox 100 100 100 O2 Delivery NIV Bilevel NIV Bilevel O2 Flow Rate 35.00 30.00 35.00 07/10/17 07/10/17 07/10/17 07/10/17 05:48 06:00 07:00 07:00 Pulse 75 73 73 77 Resp 11 16 B/P (MAP) 122/55 (77) 131/56 (81) Pulse Ox 100 100 100 O2 Delivery NIV Bilevel NIV Bilevel O2 Flow Rate 35.00 35.00 07/10/17 07/10/17 07/10/17 07/10/17 07:24 08:00 08:00 09:00 Pulse 75 80 76 Resp 19 17 15 B/P (MAP) 122/84 (97) 106/38 (60) Pulse Ox 100 100 100 100 O2 Delivery Nasal Cannula NIV Bilevel NIV Bilevel O2 Flow Rate 30.00 3.00 35.00 35.00 07/10/17 07/10/17 07/10/17 07/10/17 10:00 11:00 11:15 13:00 Pulse 79 70 84 Resp 9 16 B/P (MAP) 124/65 (84) 134/64 (87) Pulse Ox 100 100 100 O2 Delivery NIV Bilevel NIV Bilevel Nasal Cannula O2 Flow Rate 35.00 35.00 3.00 07/10/17 14:27 Pulse Ox 98 O2 Delivery Room Air Capillary Refill : Less Than 3 Seconds General Appearance: WD/WN, no apparent distress HEENT: PERRL/EOMI, normal ENT inspection, pharynx normal Neck: non-tender, full range of motion, supple, normal inspection Respiratory: chest non-tender, lungs clear, normal breath sounds, no respiratory distress, no accessory muscle use Cardiovascular: regular rate, rhythm, no edema, no gallop, no JVD, no murmur Gastrointestinal: normal bowel sounds, non tender, soft, no organomegaly, no pulsatile mass Extremities: normal range of motion, non-tender, normal inspection, no pedal edema, no calf tenderness, normal capillary refill Neurologic/Psychiatric: alert Skin: normal color, warm/dry Assessment/Plan Assessment/Plan Admission Dx UNRESPONSIVE MENTAL STATUS DEHYDRATION WITH DECREASED RENAL FUNCTION HYPERKALEMIA COPD EXACERBATION CHRONIC SYSTOLIC CHF T2DM, CONTROLLED Admission Status: Inpatient Order (span 2 midnights) Reason for Inpatient Admission: PATIENT WITH MULTIPLE ORGAN SYSTEM COMPLICATIONS INCLUDING DECREASED RENAL FUNCTION, POSSIBLE PNEUMONIA COMPOUNDED BY NON-VERBAL STATUS Assessment & Plan UNRESPONSIVE MENTAL STATUS DEHYDRATION WITH DECREASED RENAL FUNCTION HYPERKALEMIA LACTIC ACIDOSIS ADM: Now that I have looked at all the labs and clinical situation, I believe Yanni's main issue is taht she became overly dehydrated from being on lasix 40mg daily and was still receiving the lisinopril, prompting the hyperkalemia. She has received quite a bit of fluids, almost 2L but has less than 500 documented as output. I am going to continue the 1/2 NS at 100/h for now due to the history of the CHF and the current read of congestion on Xray. We will monitor I/O's carefully as well as renal function. COPD EXACERBATION ADM: We will continue steroids and abx for now. However, if she improves as her renal funciton does, I will likely DC the IV steroids and pare down the abx fairly quickly. CHRONIC SYSTOLIC CHF ADM: No echo since 2016, will order for Wednesday. Cautious fluid balance. T2DM, CONTROLLED ADM: Cont current regimen from [facility]. DVT PROPH: Lovenox 40mg q 24h GI PROPH: Home omeprazole Clinical Quality Measures DVT/VTE Risk/Contraindication: Risk Factor Score Per Nursin RFS Level Per Nursing on Admit: 4+=Very High Copy Copies To 1: YFN ADKINS APRN, MD Jul 10, 2017 2:44 pm
[2017-07-10] MEDS ORDERED: ENOXAPARIN 40 MG/0.4 ML (LOVENOX) SYR ONE (15:12)
[2017-07-10] MEDS: ENOXAPARIN 40 MG/0.4 ML (LOVENOX) SYR SC SCH (15:23)
[2017-07-10] MEDS: PANTOPRAZOLE 20 MG TABLET (PROTONIX) PO SCH (15:24)
[2017-07-10] MEDS: amLODIPine 10 MG (NORVASC) TAB PO SCH (15:24)
[2017-07-10] MEDS: ASPIRIN 81 MG CHEW (CHILDREN'S ASA) PO SCH (15:24)
[2017-07-10] MEDS: CEFEPIME IV SCH ×2 (18:27)
[2017-07-10] MEDS: doxAzosin 2 MG (CARDURA) TAB PO SCH ×2 (18:27→23:47)
[2017-07-10] MEDS: NS IV SCH ×2 (18:27)
[2017-07-10] MEDS ORDERED: METF1000 PO (18:42)
[2017-07-10] MEDS ORDERED: MONT10TA24 PO (18:42)
[2017-07-10] MEDS ORDERED: BUDE0.5A7 IH (18:42)
[2017-07-10] MEDS ORDERED: POLY17PO6 PO (18:42)
[2017-07-10] MEDS ORDERED: PRED10TA22 PO (18:42)
[2017-07-10] MEDS ORDERED: AZIT250T12 PO (18:42)
[2017-07-10] MEDS ORDERED: [UNRECOGNIZED DRUG - CODE] PO (18:42)
[2017-07-10] MEDS ORDERED: RANI150T15 PO (18:42)
[2017-07-10] MEDS ORDERED: GUAI100L36 PO (18:42)
[2017-07-10] MEDS ORDERED: LORA10TA76 PO (18:42)
[2017-07-10] MEDS ORDERED: LOPE2TAB64 PO (18:42)
[2017-07-10] MEDS ORDERED: ACET325T49 PO (18:42)
[2017-07-10] MEDS: OMEGA 3 (FISH OIL) 1000 MG CAP PO SCH (20:47)
[2017-07-10] MEDS: SIMvastatin 20 MG (ZOCOR) TAB PO SCH (20:48)
[2017-07-10] MEDS: DOCUSATE SODIUM 100 MG (COLACE) CAP PO SCH (20:48)
[2017-07-10] MEDS: carBAMazepine 200 MG (TEGretol) TAB PO SCH (20:48)
[2017-07-10] MEDS: LATANOPROST 0.005% (XALATAN) OPHTH SOLN 2.5 ML OU SCH (20:48)
[2017-07-10] MEDS: LEVOTHYROXINE 88 MCG (LEVOTHORID) TAB PO SCH (20:48)
[2017-07-10] MEDS: lisINopril 20 MG (PRINIVIL) TABLET PO SCH (21:48)
[2017-07-11] VITALS (34 sets, daily range): BP systolic 104–182; BP diastolic 49–100
[2017-07-11] MEDS: RT-ALBUTEROL/IPRATROPIUM 3 ML (DUONEB) VIAL INH SCH ×6 (02:42→22:16)
[2017-07-11] MEDS: NS IV 1000 ML 1,000 ML IV SCH ×6 (03:23→22:40)
[2017-07-11 03:30] LABS: BASOPHILS % (AUTO) 0 % (0-10); EOSINOPHILS % (AUTO) 0 % (0-10); HEMATOCRIT 30 % (35-52); HEMOGLOBIN 9.7 G/DL (11.5-16.0); LYMPHOCYTES # (AUTO) 2.2 X 10^3 (1.0-4.0); LYMPHOCYTES % (AUTO) 23 % (12-44); MEAN CORPUSCULAR HEMOGLOBIN 30 PG (25-34); MEAN CORPUSCULAR HGB CONC 32 G/DL (32-36); MEAN CORPUSCULAR VOLUME 94 FL (80-99); MEAN PLATELET VOLUME 9.7 FL (7.4-10.4); MONOCYTES # (AUTO) 1.3 X 10^3 (0.0-1.0); MONOCYTES % (AUTO) 13 % (0-12); NEUTROPHILS # (AUTO) 6.2 X 10^3 (1.8-7.8); NEUTROPHILS % (AUTO) 64 % (42-75); PLATELET COUNT 283 10^3/uL (130-400); RED BLOOD COUNT 3.19 10^6/uL (4.35-5.85); WHITE BLOOD COUNT 9.6 10^3/uL (4.3-11.0)
[2017-07-11 04:07] LABS: BUN/CREATININE RATIO 26; CALCIUM 8.2 MG/DL (8.5-10.1); CARBON DIOXIDE 26 MMOL/L (21-32); CHLORIDE 101 MMOL/L (98-107); CREATININE SERUM 0.93 MG/DL (0.60-1.30); GFR ESTIMATED > 60; GLUCOSE 130 MG/DL (70-105); MAGNESIUM 2.2 MG/DL (1.8-2.4); POTASSIUM 4.7 MMOL/L (3.6-5.0); SODIUM 139 MMOL/L (135-145)
[2017-07-11] MEDS ORDERED: FUROSEMIDE 40 MG/4 ML INJ (LASIX) ONE (05:05)
[2017-07-11] MEDS: PANTOPRAZOLE 20 MG TABLET (PROTONIX) PO SCH (05:12)
[2017-07-11] MEDS: doxAzosin 2 MG (CARDURA) TAB PO SCH ×3 (05:12→18:04)
[2017-07-11] MEDS: CEFEPIME IV SCH ×4 (05:12→18:03)
[2017-07-11] MEDS: NS IV SCH ×4 (05:12→18:03)
[2017-07-11] MEDS ORDERED: FUROSEMIDE 40 MG/4 ML INJ (LASIX) IVP ONE (05:15)
[2017-07-11] MEDS ORDERED: TROUGH ORDER-PHARMACY XX NR (09:00)
[2017-07-11] MEDS ORDERED: OMEPRAZOLE 20 MG (PriLOSEC) CAP NON-FORMULARY PO SCH (09:00)
[2017-07-11] MEDS: OMEGA 3 (FISH OIL) 1000 MG CAP PO SCH ×2 (09:07→20:36)
[2017-07-11] MEDS: amLODIPine 10 MG (NORVASC) TAB PO SCH (09:07)
[2017-07-11] MEDS: DOCUSATE SODIUM 100 MG (COLACE) CAP PO SCH ×2 (09:07→20:21)
[2017-07-11] MEDS: lisINopril 20 MG (PRINIVIL) TABLET PO SCH (09:07)
[2017-07-11] MEDS: carBAMazepine 200 MG (TEGretol) TAB PO SCH ×2 (09:07→20:36)
[2017-07-11] MEDS: ASPIRIN 81 MG CHEW (CHILDREN'S ASA) PO SCH (09:07)
--- NOTE | 2017-07-11 09:38 | Progress Note (SOAP) ---
Subjective Subjective/Events-last exam Yanni is much more awake today and can answer simple questions or say "good morning" which is about her baseline. Review of Systems Date Seen by Provider: Jul 11, 2017 Time Seen by Provider: 09:00 Pulmonary: Dyspnea Cardiovascular: No: Chest Pain Objective Exam Last Set of Vital Signs Vital Signs Date Time Temp Pulse Resp B/P (MAP) Pulse Ox O2 Delivery O2 Flow Rate FiO2 07/11/17 08:34 71 16 98 40.00 07/11/17 06:00 126/64 (84) NIV Bilevel 07/11/17 03:00 99.2 07/09/17 23:00 50 Capillary Refill : Less Than 3 Seconds I&O Intake and Output 07/10/17 23:59 Intake Total 1650 ml Output Total 1775 ml Balance -125 ml Intake Oral 50 ml IV Total 1600 ml Output Urine Total 1775 ml # Bowel Movements 3 General: Alert, Oriented X3, Cooperative, Mild Distress Lungs: Other (good effort, wheeing throughout) Heart: Regular Rate, Normal S1, Normal S2, No Murmurs, Gallops, Rubs Abdomen: Normal Bowel Sounds, Soft, No Tenderness, No Hepatosplenomegaly, No Masses Extremities: No Clubbing, No Cyanosis, No Edema Results/Procedures Lab Laboratory Tests 07/10/17 12:28: Potassium Level 5.9H, Lactic Acid Level 3.98*H 07/10/17 21:00: Stool Occult Blood Immunoassay NEGATIVE 07/11/17 03:07: Potassium Level 4.7, Lactic Acid Level 1.64, White Blood Count 9.6, Red Blood Count 3.19L, Hemoglobin 9.7L, Hematocrit 30L, Mean Corpuscular Volume 94, Mean Corpuscular Hemoglobin 30, Mean Corpuscular Hemoglobin Concent 32, Red Cell Distribution Width 16.0H, Platelet Count 283, Mean Platelet Volume 9.7, Neutrophils (%) (Auto) 64, Lymphocytes (%) (Auto) 23, Monocytes (%) (Auto) 13H, Eosinophils (%) (Auto) 0, Basophils (%) (Auto) 0, Neutrophils # (Auto) 6.2, Lymphocytes # (Auto) 2.2, Monocytes # (Auto) 1.3H, Eosinophils # (Auto) 0.0, Basophils # (Auto) 0.0, Sodium Level 139, Chloride Level 101, Carbon Dioxide Level 26, Anion Gap 12, Blood Urea Nitrogen 24H, Creatinine 0.93, Estimat Glomerular Filtration Rate > 60, BUN/Creatinine Ratio 26, Glucose Level 130H, Calcium Level 8.2L, Phosphorus Level 2.0L, Magnesium Level 2.2 Microbiology 07/09/17 Blood Culture - Preliminary, Resulted No growth 07/10/17 C. difficile GDH Antigen & Toxins - Final, Complete 07/10/17 Throat Culture - Preliminary, Resulted No Beta Strep isolated Assessment/Plan Assessment/Plan Assessment & Plan UNRESPONSIVE MENTAL STATUS - Resolved 07/11 DEHYDRATION WITH DECREASED RENAL FUNCTION - Resolved 07/11 HYPERKALEMIA - Resolved 07/11 LACTIC ACIDOSIS - Resolved 07/11 ADM: Now that I have looked at all the labs and clinical situation, I believe Yanni's main issue is taht she became overly dehydrated from being on lasix 40mg daily and was still receiving the lisinopril, prompting the hyperkalemia. She has received quite a bit of fluids, almost 2L but has less than 500 documented as output. I am going to continue the 1/2 NS at 100/h for now due to the history of the CHF and the current read of congestion on Xray. We will monitor I/O's carefully as well as renal function. 07/11: Dehydration is improved as is renal function. However, her respiratory status is worsened, so eICU added a dose of lasix and dropped the IVF to 30ml/ h. MS much improved. COPD EXACERBATION ADM: We will continue steroids and abx for now. However, if she improves as her renal funciton does, I will likely DC the IV steroids and pare down the abx fairly quickly. 07/11: Continue steroids an antibiotics. Now requiring BiPap or she desats. Will give another dose of lasix 20mg IV once later today. CHRONIC SYSTOLIC CHF ADM: No echo since 2015, will order for Wednesday. Cautious fluid balance. 07/11: Need echo on Wednesday. T2DM, CONTROLLED ADM: Cont current regimen from [facility]. DVT PROPH: Lovenox 40mg q 24h GI PROPH: Home omeprazole Clinical Quality Measures DVT/VTE Risk/Contraindication: Risk Factor Score Per Nursin RFS Level Per Nursing on Admit: 4+=Very High YFN HEALY MD Jul 11, 2017 9:38 am
--- NOTE | 2017-07-11 09:46 | Diagnostic Imaging Report ---
INDICATION: Respiratory failure EXAM: Portable chest at 3:44 AM FINDINGS: Right jugular central line tip projects over the SVC. The right lung continues to be symmetrically more dense than the left similar to the previous days comparison exam. There is no appreciable effusion or pneumothorax. IMPRESSION: Asymmetric lung densities, right greater than left, suggesting underlying infiltrate. No appreciable change from the previous study. Dictated by: Dictated on workstation # [id number]
[2017-07-11] MEDS: 1/2 NS IV SOLUTION 1,000 ML IV SCH (11:26)
[2017-07-11] MEDS: VANCOMYCIN INJECTION 750 MG in NS (IVPB) 250 ML IV SCH ×2 (11:26→21:33)
[2017-07-11] MEDS: NOREPINEPHRINE 4 MG in NS (IVPB) 250 ML IV SCH (15:52)
[2017-07-11] MEDS: FUROSEMIDE 40 MG/4 ML INJ (LASIX) IVP SCH (16:00)
[2017-07-11] MEDS: ENOXAPARIN 40 MG/0.4 ML (LOVENOX) SYR SC SCH (16:00)
[2017-07-11] MEDS ORDERED: PRD20T PO (18:53)
[2017-07-11] MEDS ORDERED: AMLO10TA2 PO (18:53)
[2017-07-11] MEDS ORDERED: RANI15SY PO (18:53)
[2017-07-11] MEDS ORDERED: ALBU2.5V4 IH ×2 (18:53)
[2017-07-11] MEDS ORDERED: ASPI-999 PO (18:53)
[2017-07-11] MEDS ORDERED: RT-ALBUINH IH (18:53)
[2017-07-11] MEDS ORDERED: CARB100/5M PO (18:53)
[2017-07-11] MEDS ORDERED: LEVO88TA54 PO (18:53)
[2017-07-11] MEDS ORDERED: FLUT16SP22 NSEACH (18:53)
[2017-07-11] MEDS ORDERED: TRAV5DRO OU (18:53)
[2017-07-11] MEDS ORDERED: DOXA2TAB2 PO (18:53)
[2017-07-11] MEDS ORDERED: IPRA3AMP IH (18:53)
[2017-07-11] MEDS ORDERED: LISI-552 PO (18:53)
[2017-07-11] MEDS: LATANOPROST 0.005% (XALATAN) OPHTH SOLN 2.5 ML OU SCH (20:36)
[2017-07-11] MEDS: SIMvastatin 20 MG (ZOCOR) TAB PO SCH (20:36)
[2017-07-11] MEDS: LEVOTHYROXINE 88 MCG (LEVOTHORID) TAB PO SCH (20:36)
[2017-07-11] MEDS ORDERED: hydrALAZINE (APESOLINE) 20 MG/ML VIAL ONE (21:29)
[2017-07-11] MEDS ORDERED: hydrALAZINE (APESOLINE) 20 MG/ML VIAL IV PRN (21:30)
[2017-07-12] VITALS (20 sets, daily range): BP systolic 117–173; BP diastolic 44–82
[2017-07-12] MEDS: doxAzosin 2 MG (CARDURA) TAB PO SCH ×3 (00:03→12:45)
[2017-07-12] MEDS: RT-ALBUTEROL/IPRATROPIUM 3 ML (DUONEB) VIAL INH SCH ×3 (02:32→09:28)
[2017-07-12] MEDS: NS IV 1000 ML 1,000 ML IV SCH ×2 (03:23→08:46)
[2017-07-12 03:27] LABS: BASOPHILS % (AUTO) 0 % (0-10); EOSINOPHILS % (AUTO) 0 % (0-10); HEMATOCRIT 30 % (35-52); HEMOGLOBIN 9.7 G/DL (11.5-16.0); LYMPHOCYTES # (AUTO) 1.9 X 10^3 (1.0-4.0); LYMPHOCYTES % (AUTO) 20 % (12-44); MEAN CORPUSCULAR HEMOGLOBIN 30 PG (25-34); MEAN CORPUSCULAR HGB CONC 33 G/DL (32-36); MEAN CORPUSCULAR VOLUME 92 FL (80-99); MEAN PLATELET VOLUME 9.5 FL (7.4-10.4); MONOCYTES # (AUTO) 1.2 X 10^3 (0.0-1.0); MONOCYTES % (AUTO) 13 % (0-12); NEUTROPHILS # (AUTO) 6.3 X 10^3 (1.8-7.8); NEUTROPHILS % (AUTO) 67 % (42-75); PLATELET COUNT 291 10^3/uL (130-400); RED BLOOD COUNT 3.25 10^6/uL (4.35-5.85); RED CELL DISTRIBUTION WIDTH 16.2 % (10.0-14.5); WHITE BLOOD COUNT 9.4 10^3/uL (4.3-11.0)
[2017-07-12 03:59] LABS: BUN/CREATININE RATIO 20; CALCIUM 8.1 MG/DL (8.5-10.1); CARBON DIOXIDE 32 MMOL/L (21-32); CHLORIDE 100 MMOL/L (98-107); CREATININE SERUM 0.92 MG/DL (0.60-1.30); GFR ESTIMATED > 60; GLUCOSE 109 MG/DL (70-105); POTASSIUM 3.7 MMOL/L (3.6-5.0); SODIUM 141 MMOL/L (135-145)
[2017-07-12] MEDS: NOREPINEPHRINE 4 MG in NS (IVPB) 250 ML IV SCH (04:07)
[2017-07-12] MEDS: CEFEPIME IV SCH ×2 (05:47)
[2017-07-12] MEDS: NS IV SCH ×2 (05:47)
[2017-07-12] MEDS: FUROSEMIDE 40 MG/4 ML INJ (LASIX) IVP SCH (05:48)
[2017-07-12] MEDS: PANTOPRAZOLE 20 MG TABLET (PROTONIX) PO SCH (05:48)
--- NOTE | 2017-07-12 07:50 | Diagnostic Imaging Report ---
CHEST 1 VIEW, AP/PA ONLY INDICATION: Respiratory failure. COMPARISON: 07/11/2017. FINDINGS: Support Devices: Stable right IJ central venous catheter. Chest: Well-defined opacities over the right hemithorax are unchanged. No pleural effusion or pneumothorax. Stable cardiomediastinal silhouette. IMPRESSION: 1. Stable support devices. 2. No change in hazy opacities in the right mid and lower lung zones which could relate to edema, atelectasis or pneumonia. Dictated by: Dictated on workstation # [id number]
[2017-07-12] MEDS: carBAMazepine 200 MG (TEGretol) TAB PO SCH (10:09)
[2017-07-12] MEDS: VANCOMYCIN INJECTION 750 MG in NS (IVPB) 250 ML IV SCH (10:09)
[2017-07-12] MEDS: lisINopril 20 MG (PRINIVIL) TABLET PO SCH (10:09)
[2017-07-12] MEDS: amLODIPine 10 MG (NORVASC) TAB PO SCH (10:09)
[2017-07-12] MEDS: ASPIRIN 81 MG CHEW (CHILDREN'S ASA) PO SCH (10:09)
[2017-07-12] MEDS: DOCUSATE SODIUM 100 MG (COLACE) CAP PO SCH (10:10)
[2017-07-12] MEDS: OMEGA 3 (FISH OIL) 1000 MG CAP PO SCH (10:10)
--- NOTE | 2017-07-12 12:38 | Physician Query Clarification ---
PQ-Conflicting Diagnosis Admission/Discharge Admission Date: Jul 09, 2017 at 22:19 Discharge Date: The medical record reflects the following clinical scenario: History/Risk Factors: COPD with acute exacerbation Hypercapnia/hypoxemia Clinical Findings: Blood gases PH7.17, PC02 104, Resp 20, T 95.2, Pulse 90, Pulse oximetry 88, BP 167/59, Lactic acids 2.68 on admission rising to 4.32 after admission. WBC 7.2. Treatment:IV Cefepime Question: Do you agree with the impression of the Severe Sepsis per Dr. Rider. If severe sepsis, please indicate what organ failure is associated with this condition. Please document a response below. PHYSICIAN RESPONSE Do you agree w/Consulting Dx?: Yes Explanation of clincal finding depressed mental status In responding to this query, please exercise your independent professional judgment. The purpose of this communication is to more accurately reflect the complexity of your patients condition. The fact that a question is asked does not imply that any particular answer is desired or expected. Thank you for your timely response to this clarification. Requestors name: Deja Goldsmith [facility] Phone # ext [phone] or [phone] THIS PHYSICIAN QUERY FORM IS A PERMANENT PART OF THE MEDICAL RECORD DEJA GOLDSMITH Jul 12, 2017 12:38 pm YFN HEALY MD Jul 12, 2017 2:06 pm
--- NOTE | 2017-07-12 12:52 | Physician Query Clarification ---
PQ-Conflicting Diagnosis Admission/Discharge Admission Date: Jul 09, 2017 at 22:19 Discharge Date: The medical record reflects the following clinical scenario: History/Risk Factors: Acute exacerbation of COPD Hypoxia/hypercapnia Clinical Findings: Blood gases: PH 7.17, PC02 104, Resp 20, Bedside pulse oximetry 88%, Lactic acid 2.68 rising to 4.32. Unresponsive and wheezing with respiratory distress. Treatment: NIV Bilevel, Albuterol Inhalation therapy Question: Do you agree with the impression of the Acute on chronic respiratory failure with hypoxia and Acute on chronic respiratory failure with Hypercapnia per Dr. Rider?Please document a response below. PHYSICIAN RESPONSE Do you agree w/Consulting Dx?: Yes In responding to this query, please exercise your independent professional judgment. The purpose of this communication is to more accurately reflect the complexity of your patients condition. The fact that a question is asked does not imply that any particular answer is desired or expected. Thank you for your timely response to this clarification. Requestors name: Deja Goldsmith [facility] Phone # ext [phone] or [phone] THIS PHYSICIAN QUERY FORM IS A PERMANENT PART OF THE MEDICAL RECORD DEJA GOLDSMITH Jul 12, 2017 12:52 pm YFN HEALY MD Jul 12, 2017 2:07 pm
--- NOTE | 2017-07-12 13:05 | Physician Query Clarification ---
PQ-Conflicting Diagnosis Admission/Discharge Admission Date: Jul 09, 2017 at 22:19 Discharge Date: The medical record reflects the following clinical scenario: History/Risk Factors: Unresponsiveness Respiratory distress Clinical Findings: Ean Coma Scale 10 Treatment: Central line right IJ. Was given large fluid bolus and cefepime IV antibiotics. Question: Do you agree with the impression of the Acute encephalopathy per Dr. Rider. Please document a response below. PHYSICIAN RESPONSE Do you agree w/Consulting Dx?: Yes In responding to this query, please exercise your independent professional judgment. The purpose of this communication is to more accurately reflect the complexity of your patients condition. The fact that a question is asked does not imply that any particular answer is desired or expected. Thank you for your timely response to this clarification. Requestors name: Deja Goldsmith [facility] Phone # [phone] or [phone] THIS PHYSICIAN QUERY FORM IS A PERMANENT PART OF THE MEDICAL RECORD DEJA GOLDSMITH Jul 12, 2017 1:05 pm YFN HEALY MD Jul 12, 2017 2:08 pm
[2017-07-12] MEDS ORDERED: morphine IMMEDIATE RELEASE 15 MG TABLET PO PRN (13:45)
[2017-07-12] MEDS ORDERED: ACETAMINOPHEN 650 MG SUPP (TYLENOL) PR PRN (13:45)
[2017-07-12] MEDS ORDERED: SALIVA STIMULANT MOUTH SPRAY (BIOTENE) 1.5 OZ MM PRN (13:45)
[2017-07-12] MEDS ORDERED: GLYCOPYRROLATE 0.2 MG/ML (ROBINUL) 2 ML VIAL IV PRN (13:45)
[2017-07-12] MEDS ORDERED: ARTIFICAL TEARS 0.4 ML UNIT DOSE (REFRESH PLUS) OU PRN (13:45)
[2017-07-12] MEDS ORDERED: RT-ALBUTEROL/IPRATROPIUM 3 ML (DUONEB) VIAL INH PRN (13:45)
[2017-07-12] MEDS ORDERED: morphine (ROXINOL) 10 MG/0.5 ML oral conc 0.5 ML PO PRN (13:45)
[2017-07-12] MEDS ORDERED: ARTIFICIAL TEARS OINT (LACRI-LUBE) 3.5 GM TUBE OU PRN (13:45)
[2017-07-12] MEDS ORDERED: BISACODYL 10 MG SUPP (DULCOLAX) PR PRN (13:45)
[2017-07-12] MEDS ORDERED: PROMETHAZINE INJ 25 MG/ML (PHENERGAN) AMP IVP PRN (13:45)
[2017-07-12] MEDS ORDERED: ONDANSETRON 4 MG/2 ML (SDV) Z0FRAN IVP PRN (13:45)
--- NOTE | 2017-07-12 14:05 | Progress Note (SOAP) ---
Subjective Subjective/Events-last exam Yanni has continued to decompensate while in hospital. She is awake and answers good morning to me. She is on vapotherm instead of BiPAP but then was returned to the BiPAP d/t desatting. Review of Systems Date Seen by Provider: Jul 12, 2017 Time Seen by Provider: 09:00 Pulmonary: Dyspnea Objective Exam Last Set of Vital Signs Vital Signs Date Time Temp Pulse Resp B/P (MAP) Pulse Ox O2 Delivery O2 Flow Rate FiO2 07/12/17 12:57 96 Nasal Cannula 6.00 07/12/17 12:30 97.3 07/12/17 12:00 50 07/12/17 12:00 81 19 117/44 (68) Capillary Refill : Less Than 3 Seconds I&O Intake and Output 07/12/17 00:00 Intake Total 475 ml Output Total 2850 ml Balance -2375 ml Intake Oral 25 ml IV Total 450 ml Output Urine Total 2850 ml # Bowel Movements 1 General: Alert, Cooperative, Moderate Distress Lungs: Other (crackles bilaterally with increased effort) Heart: Regular Rate, Normal S1, Normal S2, No Murmurs, Gallops, Rubs Abdomen: Normal Bowel Sounds, Soft, No Tenderness, No Hepatosplenomegaly, No Masses Extremities: No Clubbing, No Cyanosis, No Edema Results/Procedures Lab Laboratory Tests 07/12/17 03:15: White Blood Count 9.4, Red Blood Count 3.25L, Hemoglobin 9.7L, Hematocrit 30L, Mean Corpuscular Volume 92, Mean Corpuscular Hemoglobin 30, Mean Corpuscular Hemoglobin Concent 33, Red Cell Distribution Width 16.2H, Platelet Count 291, Mean Platelet Volume 9.5, Neutrophils (%) (Auto) 67, Lymphocytes (%) (Auto) 20, Monocytes (%) (Auto) 13H, Eosinophils (%) (Auto) 0, Basophils (%) (Auto) 0, Neutrophils # (Auto) 6.3, Lymphocytes # (Auto) 1.9, Monocytes # (Auto) 1.2H, Eosinophils # (Auto) 0.0, Basophils # (Auto) 0.0, Sodium Level 141, Potassium Level 3.7, Chloride Level 100, Carbon Dioxide Level 32, Anion Gap 9, Blood Urea Nitrogen 18, Creatinine 0.92, Estimat Glomerular Filtration Rate > 60, BUN/ Creatinine Ratio 20, Glucose Level 109H, Calcium Level 8.1L Microbiology 07/09/17 Blood Culture - Preliminary, Resulted No growth 07/10/17 C. difficile GDH Antigen & Toxins - Final, Complete 07/10/17 Throat Culture - Final, Complete No Beta Strep isolated Assessment/Plan Assessment/Plan Assessment & Plan UNRESPONSIVE MENTAL STATUS - Resolved 07/11 DEHYDRATION WITH DECREASED RENAL FUNCTION - Resolved 07/11 HYPERKALEMIA - Resolved 07/11 LACTIC ACIDOSIS - Resolved 07/11 ADM: Now that I have looked at all the labs and clinical situation, I believe Yanni's main issue is taht she became overly dehydrated from being on lasix 40mg daily and was still receiving the lisinopril, prompting the hyperkalemia. She has received quite a bit of fluids, almost 2L but has less than 500 documented as output. I am going to continue the 1/2 NS at 100/h for now due to the history of the CHF and the current read of congestion on Xray. We will monitor I/O's carefully as well as renal function. 07/11: Dehydration is improved as is renal function. However, her respiratory status is worsened, so eICU added a dose of lasix and dropped the IVF to 30ml/ h. MS much improved. COPD EXACERBATION ADM: We will continue steroids and abx for now. However, if she improves as her renal funciton does, I will likely DC the IV steroids and pare down the abx fairly quickly. 07/11: Continue steroids an antibiotics. Now requiring BiPap or she desats. Will give another dose of lasix 20mg IV once later today. CHRONIC SYSTOLIC CHF ADM: No echo since 2015, will order for Wednesday. Cautious fluid balance. 07/11: Need echo on Wednesday. T2DM, CONTROLLED ADM: Cont current regimen from [facility]. DVT PROPH: Lovenox 40mg q 24h GI PROPH: Home omeprazole Update as of 07/12/17: Yanni's status has continued to worsening. Her xray shows progression of the pneumonia. I have called and spoken with her guardian, Simran Juares, who states that she does not want Yanni to suffer or be uncomfortable. We are both concerned that Yanni is not comfortable on the BiPAP. As Yanni has no family, we are going to switch our goals to comfort care. We will call [place] [facility] to help with arrangements in the residential. I have also consulted Adelso Hogan who has been assisting us in Yanni's care. We will put her on comfort meds and ensure she is not in any distress. Once she appears to be more comfortable and peaceful, we will plan to transition to nasal cannula. It is possible that Yanni may pass away in the coming 24h. If not, we will reassess to see if discharge to her home facility is necessary. Clinical Quality Measures DVT/VTE Risk/Contraindication: Risk Factor Score Per Nursin RFS Level Per Nursing on Admit: 4+=Very High YFN HEALY MD Jul 12, 2017 2:05 pm
[2017-07-12] MEDS: LORazepam INJ 2 MG/ML (ATIVAN) VIAL IVP PRN (15:17)
[2017-07-12] MEDS: morphine INJ 4 MG/ML 1 ML (VIAL/SYRINGE) IV PRN ×2 (15:17→16:51)
[2017-07-13] MEDS: LORazepam INJ 2 MG/ML (ATIVAN) VIAL IVP PRN ×2 (11:14→16:22)
[2017-07-13] MEDS ORDERED: LORA-404 PO (11:54)
[2017-07-13] MEDS ORDERED: SCOP1PAT17 TD (11:54)
[2017-07-13] MEDS ORDERED: MORP100S3 PO (11:54)
--- NOTE | 2017-07-13 11:57 | Discharge Inst-Skilled Nursing ---
Discharge Inst-Skilled NF Patient Instructions Patient Problems: ACUTE ON CHRONIC RESPIRATORY FAILURE COMMUNITY ACQUIRED PNEUMONIA COPD EXACERBATION Goal: COMFORT CARE IN THE END OF LIFE Patient Instructions: PT MAY EAT, MOVE AD AMBAR. Consult/Follow Up/Orders Follow up appt.: [facility] WILL SEE SERGIO ON HER NEXT USP ROUNDS. Skilled NF Admit to: [facility] Certifications SNF I certify that SNF services are required to be given on an inpatient basis because of the above named patient's need for residential care on a continuing basis for the conditions(s) for which he/she was receiving inpatient hospital services prior to his/her transfer to the SNF. Daily Activity as Tolerated: Yes Discharge Medications New Medications: Lorazepam (Ativan) 0.5 Mg Tablet 0.5 MG PO Q2hr PRN for ANXIETY, #20 TAB 0 Refills Morphine Sulfate (Morphine Sulfate Concentrate 20mg/ml) 100 Mg/5 Ml Solution 5 MG PO Q2H PRN for PAIN, #30 ML 0 Refills Scopolamine (Scopolamine) 1 Each Patch.td.3 1 EACH TD Q72H, #10 0 Refills Continued Medications: Albuterol Sulfate (Albuterol Sulfate) 2.5 Mg/3 Ml Vial.neb 2.5 MG IH Q6H PRN for SHORTNESS OF BREATH, EA Carbamazepine (Carbamazepine) 20 Mg/Ml Oral.susp 200 MG PO BID TAKES 10 ML OF A (100 MG/5 ML) SUSPENSION Guaifenesin (Tussin) 100 Mg/5 Ml Liquid 100 MG PO Q4H PRN for COUGH, EA Ipratropium/Albuterol Sulfate (Iprat-Albut 0.5-3(2.5) mg/3 ml) 3 Ml Ampul.neb 3 ML IH Q8H PRN for SHORTNESS OF BREATH, EACH Loperamide HCl (Anti-Diarrhea) 2 Mg Tablet 2-4 MG PO PRN PRN for LOOSE STOOLS, TAB TAKES 1-2 OF A (2 MG) TABLET / NOT TO EXCEED 4 TABS IN 24 HRS Ranitidine HCl (Ranitidine HCl) 15 Mg/1 Ml Syrup 30 MG PO BID TAKES 10 ML OF A (15 MG/ML) SYRUP Travoprost (Travatan Z) 5 Ml Drops 1 DROP OU HS Discontinued Medications: Acetaminophen (Acetaminophen) 325 Mg Tablet 650 MG PO Q4H PRN for PAIN-MILD, TAB NOT TO EXCEED 3GM/24 HRS Albuterol Sulfate (Proair Hfa) 1 Puff Puff 2 PUFF IH Q6H PRN for SHORTNESS OF BREATH, PUFF 1 PUFF = 90 MCG Albuterol Sulfate (Albuterol Sulfate) 2.5 Mg/3 Ml Vial.neb 2.5 MG IH QID for 7 Days, EA ORDERED 07/07/17 FOR A 7 DAY THERAPY Amlodipine Besylate (Amlodipine Besylate) 10 Mg Tablet 10 MG PO DAILY HOLD IF SYSTOLIC LESS THAN 100 OR DYSTOLIC LESS THAN 60 Aspirin (Aspirin) 81 Mg Tab.chew 81 MG PO DAILY, TAB Azithromycin (Azithromycin) 250 Mg Tablet 250 MG PO DAILY for 4 Days, TAB START DATE 07/09/17 FOR A 4 DAYS THERAPY / 500 MG GIVEN ON FIRST DAY Budesonide (Pulmicort) 0.5 Mg/2 Ml Ampul.neb 0.5 MG IH BID, INHALER Doxazosin Mesylate (Doxazosin Mesylate) 2 Mg Tablet 2 MG PO QID HOLD IS SYSTOLIC LESS THAN 100 OR DYSTOLIC LESS THAN 60 Fluticasone Propionate (Fluticasone Propionate) 16 Gm [place].susp 1 SPRAY NSEACH BID Lactase (Lactaid) 3,000 Unit Tablet 3000 UNIT PO DAILY, TAB Levothyroxine Sodium (Levothyroxine Sodium) 88 Mcg Tablet 88 MCG PO DAILY Lisinopril (Lisinopril) 20 Mg Tablet 20 MG PO DAILY CALL DR IF LESS THAN 100/70 OR GREATER THAN 180/100, PULSE LESS THAN 50 OR GREATER THAN 110 Loratadine (Claritin) 10 Mg Tablet 10 MG PO DAILY, TAB Metformin HCl (Metformin HCl) 1,000 Mg Tablet 1000 MG PO BID WITH MEALS, TAB Montelukast Sodium (Montelukast Sodium) 10 Mg Tablet 10 MG PO HS, TAB Polyethylene Glycol 3350 (Miralax) 17 Gm Powd.pack 17 GM PO DAILY, EACH Prednisone (Prednisone) 20 Mg Tab PO UD TAPER THERAPY STARTED 07/09/17 FOR A 12 DAY THERAPY 60MG QD X 3 DAYS, 40MG QD X 3 DAYS, 20MG QD X 3 DAYS, THEN 10MG QD X 3 DAYS. Yfn Godinez Jul 13, 2017 11:55 Copy Copies To 1: YFN ADKINS APRN, MD Jul 13, 2017 11:57 am
--- NOTE | 2017-07-13 12:00 | Discharge Summary ---
Diagnosis/Chief Complaint Date of Admission Jul 09, 2017 at 10:19 pm Date of Discharge July 13, 2017 Admission Diagnosis Admission Diagnosis KINDLY SEE BELOW Discharge Diagnosis UNRESPONSIVE MENTAL STATUS - Resolved 3/4 DEHYDRATION WITH DECREASED RENAL FUNCTION - Resolved 3/4 HYPERKALEMIA - Resolved 3/4 LACTIC ACIDOSIS - Resolved 3/4 ADM: Now that I have looked at all the labs and clinical situation, I believe Yanni's main issue is taht she became overly dehydrated from being on lasix 40mg daily and was still receiving the lisinopril, prompting the hyperkalemia. She has received quite a bit of fluids, almost 2L but has less than 500 documented as output. I am going to continue the 1/2 NS at 100/h for now due to the history of the CHF and the current read of congestion on Xray. We will monitor I/O's carefully as well as renal function. 07/11: Dehydration is improved as is renal function. However, her respiratory status is worsened, so eICU added a dose of lasix and dropped the IVF to 30ml/ h. MS much improved. COPD EXACERBATION ADM: We will continue steroids and abx for now. However, if she improves as her renal funciton does, I will likely DC the IV steroids and pare down the abx fairly quickly. 07/11: Continue steroids an antibiotics. Now requiring BiPap or she desats. Will give another dose of lasix 20mg IV once later today. CHRONIC SYSTOLIC CHF ADM: No echo since 2015, will order for Wednesday. Cautious fluid balance. 07/11: Need echo on Wednesday. T2DM, CONTROLLED ADM: Cont current regimen from [facility]. DVT PROPH: Lovenox 40mg q 24h GI PROPH: Home omeprazole Update as of 07/12/17: Yanni's status has continued to worsening. Her xray shows progression of the pneumonia. I have called and spoken with her guardian, Simran Juares, who states that she does not want Yanni to suffer or be uncomfortable. We are both concerned that Yanni is not comfortable on the BiPAP. As Yanni has no family, we are going to switch our goals to comfort care. We will call [place] [facility] to help with arrangements [facility]. I have also consulted Adelso Hogan who has been assisting us in Yanni's care. We will put her on comfort meds and ensure she is not in any distress. Once she appears to be more comfortable and peaceful, we will plan to transition to nasal cannula. It is possible that Yanni may pass away in the coming 24h. If not, we will reassess to see if discharge to her home facility is necessary. DISCHARGE: We have placed Yanni on comfort care. [facility]. We have visited with Simran Horton, patient's court- appointed guardian who is agreeable to the plan. Yanni appears to be comfortable. Chief Complaint/HPI Chief Complaint/HPI 82yo woman with a history of mental retardation was found unresponsive by penitentiary staff, questionably between 3 and 6pm. Patient is non-verbal and unable to contribute history. Per chart review, she has a history of CHF as well as COPD. Her last a1c was 5.3, showing DMT2 under good control. Discharge Summary-Simple/Stand Consultations Discharge Physical Examination Allergies: Coded Allergies: Phenothiazines (Verified Allergy, Unknown, 04/14/14) Trifluoperazine HCl (Verified Allergy, Unknown, 04/14/14) tuberculin, purified protein deriva (Verified Allergy, Unknown, 04/14/14) Vitals & I&Os Vital Sign - Last 12Hours Date Time Temp Pulse Resp B/P (MAP) Pulse Ox O2 Delivery O2 Flow Rate FiO2 07/13/17 11:12 89 Vapotherm 5.00 07/12/17 15:00 78 28 145/71 (95) 07/12/17 12:30 97.3 07/12/17 12:00 50 Intake and Output 07/13/17 00:00 Intake Total 1250 ml Output Total 825 ml Balance 425 ml General Appearance: Alert, Cooperative, No Acute Distress Respiratory: Other (wet, rhonchi extensively bilaterally) Cardiovascular: Regular Rate, Normal S1, Normal S2, No Murmurs, Gallops, Rubs Abdominal: Normal Bowel Sounds, Soft, No Tenderness, No Hepatosplenomegaly, No Masses Extremities: No Clubbing, No Cyanosis, No Edema Hospital Course See final discharge diagnosis. Labs Laboratory Tests Test 07/10/17 12:28 07/10/17 21:00 07/11/17 03:07 07/11/17 10:14 Range/Units Potassium Level 5.9 H 4.7 3.6-5.0 MMOL/L Lactic Acid Level 3.98 *H 1.64 0.50-2.00 MMOL/L Stool Occult Blood Immunoassay NEGATIVE NEGATIVE White Blood Count 9.6 4.3-11.0 10^3/uL Red Blood Count 3.19 L 4.35-5.85 10^6/uL Hemoglobin 9.7 L 11.5-16.0 G/DL Hematocrit 30 L 35-52 % Mean Corpuscular Volume 94 80-99 FL Mean Corpuscular Hemoglobin 30 25-34 PG Mean Corpuscular Hemoglobin Concent 32 32-36 G/DL Red Cell Distribution Width 16.0 H 10.0-14.5 % Platelet Count 283 130-400 10^3/uL Mean Platelet Volume 9.7 7.4-10.4 FL Neutrophils (%) (Auto) 64 42-75 % Lymphocytes (%) (Auto) 23 12-44 % Monocytes (%) (Auto) 13 H 0-12 % Eosinophils (%) (Auto) 0 0-10 % Basophils (%) (Auto) 0 0-10 % Neutrophils # (Auto) 6.2 1.8-7.8 X 10^3 Lymphocytes # (Auto) 2.2 1.0-4.0 X 10^3 Monocytes # (Auto) 1.3 H 0.0-1.0 X 10^3 Eosinophils # (Auto) 0.0 0.0-0.3 10^3/uL Basophils # (Auto) 0.0 0.0-0.1 10^3/uL Sodium Level 139 135-145 MMOL/L Chloride Level 101 98-107 MMOL/L Carbon Dioxide Level 26 21-32 MMOL/L Anion Gap 12 5-14 MMOL/L Blood Urea Nitrogen 24 H 7-18 MG/DL Creatinine 0.93 0.60-1.30 MG/DL Estimat Glomerular Filtration Rate > 60 BUN/Creatinine Ratio 26 Glucose Level 130 H 70-105 MG/DL Calcium Level 8.2 L 8.5-10.1 MG/DL Phosphorus Level 2.0 L 2.3-4.7 MG/DL Magnesium Level 2.2 1.8-2.4 MG/DL Vancomycin Level Trough 16.8 10.0-20.0 UG/ML Test 07/12/17 03:15 Range/Units White Blood Count 9.4 4.3-11.0 10^3/uL Red Blood Count 3.25 L 4.35-5.85 10^6/uL Hemoglobin 9.7 L 11.5-16.0 G/DL Hematocrit 30 L 35-52 % Mean Corpuscular Volume 92 80-99 FL Mean Corpuscular Hemoglobin 30 25-34 PG Mean Corpuscular Hemoglobin Concent 33 32-36 G/DL Red Cell Distribution Width 16.2 H 10.0-14.5 % Platelet Count 291 130-400 10^3/uL Mean Platelet Volume 9.5 7.4-10.4 FL Neutrophils (%) (Auto) 67 42-75 % Lymphocytes (%) (Auto) 20 12-44 % Monocytes (%) (Auto) 13 H 0-12 % Eosinophils (%) (Auto) 0 0-10 % Basophils (%) (Auto) 0 0-10 % Neutrophils # (Auto) 6.3 1.8-7.8 X 10^3 Lymphocytes # (Auto) 1.9 1.0-4.0 X 10^3 Monocytes # (Auto) 1.2 H 0.0-1.0 X 10^3 Eosinophils # (Auto) 0.0 0.0-0.3 10^3/uL Basophils # (Auto) 0.0 0.0-0.1 10^3/uL Sodium Level 141 135-145 MMOL/L Potassium Level 3.7 3.6-5.0 MMOL/L Chloride Level 100 98-107 MMOL/L Carbon Dioxide Level 32 21-32 MMOL/L Anion Gap 9 5-14 MMOL/L Blood Urea Nitrogen 18 7-18 MG/DL Creatinine 0.92 0.60-1.30 MG/DL Estimat Glomerular Filtration Rate > 60 BUN/Creatinine Ratio 20 Glucose Level 109 H 70-105 MG/DL Calcium Level 8.1 L 8.5-10.1 MG/DL Discharge Instructions to patient/family Please see electronic discharge instructions given to patient. Discharge Medications Reviewed and agree with Discharge Medication list on patient's Discharge Instruction sheet Clinical Quality Measures DVT/VTE Risk/Contraindication: Risk Factor Score Per Nursin RFS Level Per Nursing on Admit: 4+=Very High Copy Copies To 1: YFN ADKINS APRN, MD Jul 13, 2017 12:00 pm
[2017-07-13] MEDS: morphine INJ 4 MG/ML 1 ML (VIAL/SYRINGE) IV PRN (16:22)
[2017-07-13 17:15] VITALS: BP 145/71
== END 2017-07-13 17:15 | disposition hospice, inpatient (51) | DRG 871 ==
LOC: EDUNIT# 19:25 → ER 19:26 → ICU 22:19 → 4TH 07-12 15:25
PROVIDERS: ADMIT Family Medicine; ATTEND Family Medicine
PROC: 02HV33Z Insertion of Infusion Device into Superior Vena Cava, Percutaneous Approach (ICD-10-PCS; principal; 2017-07-09)
DX: A41.9 Sepsis, unspecified organism (principal); R65.20 Severe sepsis without septic shock; J18.9 Pneumonia, unspecified organism; G93.40 Encephalopathy, unspecified; J96.21 Acute and chronic respiratory failure with hypoxia; J96.22 Acute and chronic respiratory failure with hypercapnia; Z66 Do not resuscitate; Z51.5 Encounter for palliative care; J44.0 Chronic obstructive pulmonary disease with (acute) lower respiratory infection; J44.1 Chronic obstructive pulmonary disease with (acute) exacerbation; E86.0 Dehydration; T50.1X5A Adverse effect of loop [high-ceiling] diuretics, initial encounter; I11.0 Hypertensive heart disease with heart failure; I50.22 Chronic systolic (congestive) heart failure; I42.9 Cardiomyopathy, unspecified; E66.2 Morbid (severe) obesity with alveolar hypoventilation; E87.2 Acidosis; E11.9 Type 2 diabetes mellitus without complications; I27.20 Pulmonary hypertension, unspecified; E87.5 Hyperkalemia; G40.909 Epilepsy, unspecified, not intractable, without status epilepticus; F71 Moderate intellectual disabilities; E78.00 Pure hypercholesterolemia, unspecified; E89.0 Postprocedural hypothyroidism; F07.9 Unspecified personality and behavioral disorder due to known physiological condition; H40.9 Unspecified glaucoma; M19.91 Primary osteoarthritis, unspecified site; Z68.32 Body mass index [BMI] 32.0-32.9, adult; Z99.3 Dependence on wheelchair
CPT/HCPCS: 36415; 71045; 80048; 80053; 80202; 81000; 82274; 82330; 82805; 83605; 83735; 83880; 84100; 84132; 84484; 85025; 85610; 85730; 86141; 87040; 87081; 87324; 87430; 87449; 87804; 93005; 94640; 94660; 96361; 96365; 96375